=== PATIENT | female | born 1970 | race Caucasian/White ===

== ENCOUNTER 2017-02-24 19:58 | Inpatient (IN) | payer OTHER ==
[2017-02-24] MEDS ORDERED: Heparin 10,000 UNITS/1 ML VIAL ONE (20:20)
[2017-02-24 20:24] LABS: #Eosinphils 0.1 thou/uL (0.0-0.7); #Lymphocytes 1.2 thou/uL (1.20-3.40); #Monocytes 0.9 thou/uL (0.11-0.59); #Neutrophils 10.9 thou/uL (1.40-6.50); %Basophils 0.2 % (0.0-1.0); %Eosinophils 0.4 % (0.0-10.0); %Lymphocytes 9.3 % (21.0-51.0); %Monocytes 7.1 % (0.0-10.0); Hematocrit 36.6 % (36.0-47.0); Mean Platelet Volume 7.6 fL (7.4-10.4); White Blood Cell (WBC) Count 13.2 thou/uL (4.8-10.8)
[2017-02-24 20:34] LABS: Prothrombin Time 15.2 SEC (12.0-14.7)
[2017-02-24 20:35] LABS: PTT 29.8 SEC (22.9-36.1)
[2017-02-24 20:39] LABS: ALT (SGPT) 547 U/L (8-55); AST (SGOT) 690 U/L (5-34); Alkaline Phosphatase 151 U/L (40-150); Anion Gap 20 mmol/L (10-20); BUN (Urea Nitrogen) 14 mg/dL (7.0-18.7); Bilirubin, Total 1.1 mg/dL (0.2-1.2); CK (CPK) 3713 U/L (29-168); Calc. Creatinine Clearance 0 mL/min (70-130); Calcium 8.9 mg/dL (7.8-10.44); Carbon Dioxide 20 mmol/L (22-29); Chloride 101 mmol/L (98-107); Estimated GFR-MDRD 29; Globulin 3.3 g/dL (2.4-3.5); Lipase 30 U/L (8-78); Protein, Total 7.4 g/dL (6.0-8.3)
[2017-02-24 20:50] LABS: Troponin I 6.484 ng/mL (< 0.028)
[2017-02-24 21:43] LABS: Acetaminophen Less than 6.0 mcg/mL (10.0-30.0)
[2017-02-24 21:51] LABS: Amphetamine Not Detected (NotDetected); Methadone Not Detected (NotDetected); Methamphetamine Not Detected (NotDetected)
--- NOTE | 2017-02-24 22:17 | RAD ---
FRONTAL VIEW CHEST: 02/24/17 COMPARISON: 08/16/16 CLINICAL HISTORY: Chest pain. FINDINGS: Redemonstration of sternotomy wires overlying the chest with a single lead left subclavian approach AICD. Cardiac silhouette and pulmonary vasculature are prominent with evidence of interstitial and a lveolar edema bilaterally. IMPRESSION: CHF. POS: MATEO
[2017-02-24] MEDS ORDERED: Naloxone HCl 2 MG, Admixture Fee 1 EACH in Sodium Chloride 0.9% 500 ML IV SCH (23:00)
[2017-02-24] MEDS ORDERED: Ondansetron HCl/PF 4 MG/2 ML Vial IVP PRN ×2 (23:15→23:17)
[2017-02-24] MEDS ORDERED: Ondansetron ODT 4 MG TAB SL PRN (23:15)
[2017-02-24] MEDS ORDERED: Enoxaparin Sodium 80 MG/0.8 ML SYRINGE SC SCH (23:30)
[2017-02-24 23:35] VITALS: BMI 26.2
[2017-02-24 23:51] LABS: Prothrombin Time 15.2 SEC (12.0-14.7)
[2017-02-25 00:50] LABS: Troponin I 8.498 ng/mL (< 0.028)
[2017-02-25 03:27] LABS: #Eosinphils 0.1 thou/uL (0.0-0.7); #Lymphocytes 1.9 thou/uL (1.20-3.40); #Monocytes 0.8 thou/uL (0.11-0.59); #Neutrophils 6.3 thou/uL (1.40-6.50); %Basophils 0.3 % (0.0-1.0); %Lymphocytes 21.2 % (21.0-51.0); %Monocytes 8.3 % (0.0-10.0); Hematocrit 33.3 % (36.0-47.0); Mean Platelet Volume 7.5 fL (7.4-10.4); Red Blood Cell (RBC) Count 3.35 mill/uL (4.20-5.40); White Blood Cell (WBC) Count 9.1 thou/uL (4.8-10.8)
[2017-02-25 03:42] LABS: Anion Gap 12 mmol/L (10-20); BUN (Urea Nitrogen) 13 mg/dL (7.0-18.7); Calc. Creatinine Clearance 66 mL/min (70-130); Calcium 8.1 mg/dL (7.8-10.44); Carbon Dioxide 23 mmol/L (22-29); Chloride 107 mmol/L (98-107); Cholesterol 126 mg/dl (< 200 Desired); Estimated GFR-MDRD 45; LDL Cholesterol, Calculated 87 mg/dL
[2017-02-25 03:50] LABS: Troponin I 9.092 ng/mL (< 0.028)
--- NOTE | 2017-02-25 04:58 | HP ---
PRIMARY CARE PHYSICIAN: Dr. Lozano in [place]. CHIEF COMPLAINT: Altered mental status. HISTORY OF PRESENT ILLNESS: The history of present illness is taken from the patient here in the em ergency room. Ms. Meek is a 46-year-old female that has a history of coronary artery disease as w ell as hypertension and hyperlipidemia. She also has a history of polysubstance abuse as well as bi polar disorder. The patient admits to putting on 100 microgram fentanyl patch as well as trying to chew another fentanyl patch. When asked why she did this, she said that she was having pain in her back and her hips. It appears as if these were obtained illicitly as she does not have a prescripti on for these medications. She said she did this around 3:00 p.m. and she says that later on her fat her brought her to the hospital because she was \\\\"acting stupid\\\\". When asked what she means by t his, she was lethargic and acting altered. She was taken to the emergency room in [place] gur[place] e she was hypotensive and altered. She was given Narcan and improved; however, in the process of he r evaluation her troponin was found to be 6 and she had elevated creatinine as well as liver functio n test and she was transferred to our facility for further evaluation and treatment. When asked if she is having any chest pain, she denies this. She denies feeling short of breath. She denies any nausea, no vomiting. She denies feeling dizzy or lightheaded. In fact, she says she feels much bet ter. She is sitting up in the bed. She looks completely nontoxic and very much awake and alert. W hen asked if she took any Tylenol or any Tylenol products she denies this as well. I listed every p otential thing that I am aware that has Tylenol in it and she denies this. She did say she had some sinus medicines, and some aspirin, but no acetaminophen. She denies taking any Lortab, Percocet, V icodin, etc., and says if she in fact had any of those she would not have to have taken the Fentanyl . REVIEW OF SYSTEMS: CONSTITUTIONAL: There have been no fevers, chills, no night sweats, no weight loss. HEENT: She has had a headache and some sinus congestion, but no sore throat, no rhinorrhea, neck pa in, no adenopathy. PULMONARY: No hemoptysis, no cough, no wheezing. CARDIOVASCULAR: She denies any chest pain, no shortness of breath, no PND, no orthopnea. GASTROINTESTINAL: She denies any abdominal pain, no nausea, no vomiting, no change in bowels. GENITOURINARY: No urinary frequency, hematuria, no hesitancy. NEUROLOGIC: No focal weakness, numbness, no seizures. PSYCHIATRIC: No symptoms of anxiety or depression. SKIN AND INTEGUMENT: No skin changes. No rash. PAST MEDICAL HISTORY: Significant for coronary artery disease, status post stent, hypertension, hyp erlipidemia, hypothyroidism, hepatitis C, chronic systolic heart failure with an ejection fraction o f 25-30% on her last echo in July of 2016. Anxiety disorder, bipolar disorder and polysubstance ab use. PAST SURGICAL HISTORY: She has had a coronary artery bypass grafting, cholecystectomy, cardiac sten ts placed and AICD, hysterectomy, and tonsillectomy. ALLERGIES: CODEINE, which causes itching. FAMILY HISTORY: Significant for cirrhosis and heart disease in her father. Her mother had heart di sease and COPD. SOCIAL HISTORY: She continues to smoke about a pack a day since age 14, so therefore about 32 years . She has a history of cannabis use. She denies any illicit drug use. She denies any alcohol use. She is , has 2 children. She would like to be a full code. Her father has the medical [facility] er of elevators inspector and his name is Martin Horvath. MEDICATIONS: Aspirin 81 mg daily, Lasix 40 mg twice a day, levothyroxine 100 mcg daily, Plavix 75 m g daily, omeprazole 20 mg daily, atorvastatin 20 mg a day, paroxetine 40 mg daily, carvedilol 3.125 mg once a day and albuterol inhaler as well as fish oil and vitamin D. PHYSICAL EXAMINATION: GENERAL: She is alert and oriented. She appears to be in no acute distress. VITAL SIGNS: Her blood pressure is ranging from about 100 systolic down to 82 systolic, heart rate is 80, respiratory rate of 14. She is afebrile. HEENT: Her pupils are equal, round, and reactive. Extraocular muscles are intact. Sclerae are ani cteric. Throat; there is no erythema, no exudates. NECK: No adenopathy, no bruits. LUNGS: Clear. There is no wheezing, no rales. CARDIOVASCULAR: She has a normal S1, S2. I did not appreciate an S3 or S4. No murmurs, clicks or rubs. ABDOMEN: Soft, nontender, nondistended. Positive for bowel sounds. No rebound, no guarding. EXTREMITIES: There is no edema. NEUROLOGICALLY: The exam is nonfocal. SIGNIFICANT LABS: Sodium is 137, potassium 3.5, chloride is 101, CO2 is 20, BUN of 14, creatinine 1 .86, glucose is 113, AST is 690, ALT is 547. CK was 3713, troponin 6.484. White blood cell count 1 3.2, hemoglobin 12.6, hematocrit is 36.6, platelet count is 162. On her EKG, it was sinus rhythm. There appeared to be some ST segment elevation in II and AVF. She had T-wave inversions in V3 and V4. ASSESSMENT AND PLAN: 1. This is a 46-year-old female that presents to the emergency room after she intentionally took fe ntanyl and overdosed on it in an attempt to alleviate pain, not in a suicidal attempt. As a result, she developed hypotension and altered mental status, possibly even precipitated a ST elevation myoc ardial infarction. It is also noted that she has an elevated creatinine above baseline as well as e levation in her liver function test. Currently, the patient is on a naloxone drip and is being admi tted to the ICU. Cardiology has been notified from the ER and the ER physician says he spoke with John Lam regarding the patient's case. We will place her in the ICU, continue the naloxone drip. She will need to be placed on aspirin and consider a beta mirella if the patient's drug screen is negative for cocaine. She will need to have some form of anticoagulation. We will start with Loven ox which will need to be renally dosed initially. The elevation in her liver function tests, it is unclear whether or not this could be related to passive congestion as the patient has a history of severely depressed ejection fraction. Other concerns would be whether she had taken some acetaminop hen product along with the fentanyl which she adamantly denies. She may be out of the window for th e antidote as it appears as if this was taken over 7-8 hours ago; however, I have asked the ER physi tamra to add a Tylenol level to her lab work. We may also need to consult Gastroenterology to obtain their opinion with regards to the elevation in her liver function test. 2. Acute renal failure. I suspect this is likely related to the hypotension from the fentanyl over dose.
--- NOTE | 2017-02-25 05:55 | CON ---
DATE OF CONSULTATION: 02/24/2017 HISTORY OF PRESENT ILLNESS: Cynthia Meek is a 46-year-old white female with history of CABG x4 in 2013 in [place]. She also had a dual chamber ICD placement , she thinks a [employer] device. She is uncertain of when the ICD was placed in regard to her CABG. She was seen by Dr. Prather in 07/2016 for shortness of breath and diaphoresis. She underwent Cardiolite test, which revealed a large fixed defect of the anteroseptal-lateral chavarria, but no reversibility. She has chronic back pain and apparently got a hold of 2 fentanyl 100 mg patches and put it on. She apparently was found on the floor of her house, was unresponsive and taken to the [place] [facility] yesterday, 02/23/17. The patch removed and apparently she was later discharged. She does state that 3 days ago, she had some right-sided chest discomfort, which started as very sharp in nature and lasted approximately 20 minutes, but denies any other chest discomfort over the last 3 to 4 days. She again today was taken back to the [place] [facility]. She states she had a 50-fentanyl patch and apparently was chewing on that and was found very lethargic. She was found to have abnormal cardiac enzymes and was transferred for further evaluation. She denied any chest discomfort except the episode of 3 days ago. PAST MEDICAL HISTORY: Hypertension, hypercholesterolemia, chronic hepatitis C, ischemic cardiomyopathy, hypothyroidism, anxiety, depression, history of polysubstance abuse, coronary artery disease. PAST SURGICAL HISTORY: CABG, AICD placement, history of PTCA and stenting, hysterectomy. MEDICATIONS: Aspirin 81 daily, atorvastatin 20 mg daily, Tessalon 100 mg t.i.d. , carvedilol 3.125 b.i.d., Plavix 75 daily, Feosol 325 daily, Lasix 40 daily, gabapentin 800 mg b.i.d., levothyroxine 100 mcg daily, losartan 25 daily, nitroglycerin 0.4 p.r.n., Prilosec 20 daily, Paxil 60 mg daily, Risperdal 1 mg daily, Aldactone 25 mg q.a.m. ALLERGIES: CODEINE. SOCIAL HISTORY: She continues to smoke one pack per day. She does not drink. REVIEW OF SYSTEMS: Twelve point review of systems is unremarkable. PHYSICAL EXAMINATION: VITAL SIGNS: Blood pressure 128/70, pulse of 80. HEENT: PERRL. NECK: Supple. CHEST: Clear. CARDIAC: S1 and S2 are normal, without any S3, S4. There is a 1/6 systolic murmur at the apex. ABDOMEN: Normal bowel sounds without tenderness, organomegaly. EXTREMITIES: Revealed no clubbing, cyanosis, or edema. NEUROLOGIC: Grossly intact. SKIN: Warm and dry. LABORATORY AND IMAGING DATA: EKG reveals poor R-wave progression in V1 to V3 which is an old finding comparison in 10/2016. She does have more T-wave inversion in V3 and V4 that she has had on previous EKG. White count 13,200, hemoglobin 12.6, hematocrit 36.6, platelets 162,000. INR 1.2. Sodium 139, potassium 3.8, chloride 100, carbon dioxide 17, BUN 14, creatinine 2.24 (in , creatinine was 1.09 and in 08/2016, creatinine was 0.82). AST 333, ALT 251. Alkaline phosphatase 151, CK 3627, CK-MB 55.1, troponin I is 5.986. IMPRESSION: 1. Probable non-ST elevation myocardial infarction with elevated troponin I and CK-MB, although she certainly has had some evidence of rhabdomyolysis. Historically, this certainly may have occurred 3 days ago. I do not feel that this represents an acute STEMI in comparison with her previous EKG. 2. Status post coronary artery bypass graft x4. 3. Status post dual chamber ICD placement. 4. Ischemic cardiomyopathy. 5. Hypertension. 6. Hyperlipidemia. 7. Hypothyroidism. 8. Chronic hepatitis C. 9. Anxiety and depression. 10. Elevated liver function test, questionable hepatic congestion. 11. Polysubstance abuse with chewing fentanyl patches. 12. Probable rhabdomyolysis. PLAN: I do not feel this patient needs to go to the laboratory immunologist acutely. Her acute kidney injury and elevated liver function tests need to be addressed and consideration can probably be given to a catheterization prior to discharge. OLE
[2017-02-25] MEDS ORDERED: Famotidine/PF 20 mg/2ml Vial SLOW IVP SCH ×2 (09:00→21:00)
[2017-02-25] MEDS: Aspirin 325 MG TAB PO SCH (09:43)
--- NOTE | 2017-02-25 12:20 | PDOC.PN ---
- Subjective Encounter Start Date: 02/25/17 Encounter Start Time: 08:30 -: old records requested/rev Pt seen adn exmained, chart reviewed in its entirety. Case discussed face to face with Dr Raza Magana with Pulm/Critical Care. Pt admitted overnight, for AMS, hypotension, multiorgan dysfunction due ot unintentional fentanyl overdose. PT having increased pain and has been chewing on her fentanyl patched. She came in with RODNEY, acute hepatitis, hypotension, bradycardia and NSTEMI Cardiology consulted, did not feel it was a STEMI. Pulm/CC consulted and is following. This morning, she is awake and alert, no distress. She appreas to be oriented X 3. Pt has been updated to condition and plan. BP low, but MAP ok and SBP improving. HR in upper 50s. 10 point ROS performed and neg for all systems except as per HPI - Objective Resuscitation Status: Resuscitation Status FULL:Full Resuscitation MAR Reviewed: Yes Vital Signs & Weight: Vital Signs (12 hours) Temp Pulse Resp Pulse Ox 02/25/17 08:00 97.8 F 58 L 16 100 02/25/17 07:00 97.8 F 02/25/17 04:00 98.4 F Weight Weight 174 lb 2.643 oz Most Recent Monitor Data Heart Rate from ECG 61 NIBP 99/61 NIBP BP-Mean 70 Respiration from ECG 13 SpO2 100 I&O: 02/24/17 02/25/17 02/26/17 06:59 06:59 06:59 Intake Total 1060 70 Output Total 2000 500 Balance -940 -430 Result Diagrams: 02/25/17 03:11 02/25/17 03:10 Radiology Reviewed by me: Yes EKG Reviewed by me: Yes Phys Exam - Physical Examination Constitutional: NAD dissheveled looking HEENT: PERRLA, moist MMs, sclera anicteric, oral pharynx no lesions Neck: no nodes, no JVD, supple, full ROM Respiratory: no wheezing, no rales, no rhonchi, clear to auscultation bilateral Cardiovascular: no significant murmur, no rub, gallop regular, bradycardic Gastrointestinal: soft, non-tender, no distention, positive bowel sounds Musculoskeletal: no edema, pulses present Neurological: non-focal, normal sensation, moves all 4 limbs Lymphatic: no nodes Psychiatric: normal affect, A&O x 3 Skin: no rash, normal turgor, cap refill <2 seconds Dx/Plan (1) Accidental fentanyl overdose Code(s): T40.4X1A - POISONING BY OTH SYNTHETIC NARCOTICS, ACCIDENTAL, INIT Status: Acute (2) Hypotension due to drugs Status: Acute (3) RODNEY (acute kidney injury) Code(s): N17.9 - ACUTE KIDNEY FAILURE, UNSPECIFIED Status: Acute (4) Ischemic hepatitis Code(s): K75.9 - INFLAMMATORY LIVER DISEASE, UNSPECIFIED Status: Acute (5) Bradycardia Code(s): R00.1 - BRADYCARDIA, UNSPECIFIED Status: Acute (6) History of coronary artery disease Code(s): Z86.79 - PERSONAL HISTORY OF OTHER DISEASES OF THE CIRCULATORY SYSTEM Status: Acute (7) Chronic systolic CHF (congestive heart failure) Code(s): I50.22 - CHRONIC SYSTOLIC (CONGESTIVE) HEART FAILURE Status: Acute (8) NSTEMI (non-ST elevated myocardial infarction) Code(s): I21.4 - NON-ST ELEVATION (NSTEMI) MYOCARDIAL INFARCTION Status: Acute - Plan cont current plan of care, PT/OT, respiratory therapy * . Pt had unintentional fentanyl overdose. counseled for need to cessate and get off of the narcotics. Has persistent hypotension due to the fentanyl with resultant hepatic, renal and myocardial injury. BP and HR low due to retaining of BBlocker with RODNEY, slowly resolving. Will watch in CCU for now, possibly to IMCU later today. CCM at present, appreciate cardiology and Pulm input.
[2017-02-25] MEDS ORDERED: Nitroglycerin 0.4 MG TAB (25 Tab Bottle) SL PRN (13:14)
[2017-02-25] MEDS ORDERED: Sodium Chloride 0.9% 200 ML IV SCH (13:15)
--- NOTE | 2017-02-25 13:24 | CON ---
DATE OF SERVICE: 02/25/2017 SERVICE: Pulmonary Medicine. HISTORY OF PRESENT ILLNESS: The patient is a 46-year-old white female with past medical history significant for chronic opiate abuse. She typically doubles with pills. She buys them on the street. She usually uses 10/325 of [place] roughly 3-4 tablets on a daily basis. She met somebody who gave her an idea that she should try a fentanyl patch. This is also obtained on the street. She used it and became completely unresponsive. She was brought to the emergency department. She was given a couple doses of Narcan and she perked up, but ultimately, went back to sleep. Narcan drip was initiated. Overnight, she was weaned off Narcan drip and currently, she is back into her usual state of health. She denies any current nausea, vomiting, diarrhea, shortness of breath or chest discomfort. She indicates she has returned to her usual state of health. She does not have any cough or sputum production. She is quite upset at the person who gave her the fentanyl and she is affirm that she is going to discontinue this habit altogether. PAST MEDICAL HISTORY: 1. Coronary artery disease. 2. Hypertension. 3. Dyslipidemia. 4. Hypothyroidism. 5. Hepatitis C, chronic. 6. Chronic systolic heart failure. 7. Bipolar disorder. 8. Anxiety disorder. 9. Polysubstance drug abuse. PAST SURGICAL HISTORY: 1. Coronary artery bypass graft. 2. Cholecystectomy. 3. History of percutaneous coronary intervention. 4. AICD placement. 5. Hysterectomy. 6. Tonsillectomy. ALLERGIES: CODEINE causes itching. MEDICATIONS: List of her inpatient medications was reviewed. One small update was made. FAMILY HISTORY: Noncontributory. SOCIAL HISTORY: She is a daily smoker and has a roughly [id number] history of smoking. She is currently using a half pack of cigarettes on a daily basis. She uses multiple illicit drugs including opiates. She currently denies IV drugs. She denies significant alcohol use. She has no exposure to chemicals, dust, asbestosis or tuberculosis. REVIEW OF SYSTEMS: General, head, ears, eyes, nose, throat, cardiovascular, respiratory, GI, , musculoskeletal, neurologic and skin is negative except as mentioned in the HPI. PHYSICAL EXAMINATION: VITAL SIGNS: Afebrile, pulse 61, blood pressure 99/61, respirations 13, and saturation 100% on room air. HEENT: Normocephalic, atraumatic. Sclerae are white, conjunctivae pink. Oral and nasal mucosa is moist without lesions. LUNGS: Excellent air entry. There are some rhonchi present, but they cleared with cough. No crackles are appreciated. No wheezing or prolonged expiratory phase. HEART: Normal rate and regular. ABDOMEN: Soft, nontender, nondistended, bowel sounds positive. MUSCULOSKELETAL: No cyanosis or clubbing. There is no pitting in the bilateral lower extremities. GENITOURINARY: No Luke. NEUROLOGIC: Grossly nonfocal. LABORATORY DATA: WBC 9.1 and down trending, hemoglobin of 11.4, platelets 146, 000. INR 1.2. Creatinine down trending to 1.27. Basic metabolic profile is otherwise unremarkable except for potassium of 3.1. AST and ALT were previously 690 and 547. CK 3,700. Troponin is up trending to 9.09. Lipase 30. Liver function studies are otherwise unremarkable. Acetaminophen level is negative. Urine drug screen is interestingly negative. Hepatitis C antibody is positive. Hepatitis B is unremarkable. IMAGING: Chest x-ray demonstrates findings consistent with minimal volume overload. She has interstitial alveolar pattern of edema present. Prominent vasculature is present. ASSESSMENT: 1. Metabolic encephalopathy secondary to opioid use. 2. Drug overdose with fentanyl. 3. Non-ST elevation myocardial infarction. 4. Shock liver. 5. Chronic hepatitis C. 6. Chronic systolic heart failure. PLAN: The patient is currently returning to her usual state of health. I am hopeful that her multiple organ injuries will start to improve. We will repeat liver function studies as well as CK tomorrow. She will need to be observed on telemetry for at least an additional 24-48 hours. Cardiology has recommended medical management for the time being, but will likely need to cath the patient prior to dismissal from the hospital. Pulmonary or Critical Care will continue to follow while she remains in this location. OLE
[2017-02-25] MEDS: Potassium Chloride 20 MEQ TAB PO SCH ×2 (15:39→18:09)
[2017-02-25] MEDS ORDERED: Iopamidol 370 76% 100 ML VIAL ONE (16:46)
[2017-02-25] MEDS: Atorvastatin Calcium 20 MG TAB PO SCH (20:04)
[2017-02-25] MEDS: Gabapentin 300 MG CAP PO SCH (20:05)
[2017-02-26 05:06] LABS: #Eosinphils 0.2 thou/uL (0.0-0.7); #Lymphocytes 1.4 thou/uL (1.20-3.40); #Monocytes 0.7 thou/uL (0.11-0.59); #Neutrophils 4.7 thou/uL (1.40-6.50); %Basophils 0.5 % (0.0-1.0); %Eosinophils 2.5 % (0.0-10.0); %Lymphocytes 19.6 % (21.0-51.0); %Monocytes 9.7 % (0.0-10.0); Hematocrit 36.6 % (36.0-47.0); Red Blood Cell (RBC) Count 3.66 mill/uL (4.20-5.40)
[2017-02-26 05:26] LABS: ALT (SGPT) 612 U/L (8-55); AST (SGOT) 596 U/L (5-34); Alkaline Phosphatase 141 U/L (40-150); Anion Gap 10 mmol/L (10-20); BUN (Urea Nitrogen) 10 mg/dL (7.0-18.7); Bilirubin, Total 0.7 mg/dL (0.2-1.2); Calc. Creatinine Clearance 99 mL/min (70-130); Calcium 9.2 mg/dL (7.8-10.44); Carbon Dioxide 29 mmol/L (22-29); Chloride 101 mmol/L (98-107); Estimated GFR-MDRD 69; Globulin 3.1 g/dL (2.4-3.5); Protein, Total 7.1 g/dL (6.0-8.3)
--- NOTE | 2017-02-26 05:47 | CON ---
DATE OF CONSULTATION: 02/25/2017 REFERRING PHYSICIAN: David Hwang M.D. REASON FOR CONSULTATION: Abnormal LFTs. HISTORY OF PRESENT ILLNESS: Ms. Cynthia Meek is a 46-year-old female transferred from the [place] ER because of hypotension, abnormal troponin level, and CPK enzymes, etc. She was also found to have abnormal LFTs. The patient apparently has some chronic pain syndrome and he tore up the fentanyl patch and he ate it. The patient came to the [place] ER because of altered mental status. The patient was found to have hypotension. Also, her serum CPK enzymes were very high and troponin level was high. There is no history of any chest pain or any dyspnea. However, when she came in yesterday, she was somewhat sleepy. Today, she is awake, alert, and communicative. The patient denies any abdominal pain, nausea, or vomiting. The patient tells me she had a liver biopsy more than 10 years ago in [place] and was told liver cirrhosis. She also had been told hepatitis C. She never got treatment for her chronic hepatitis C. The patient does drink alcohol very heavily. She says she has quit drinking completely more than 10 years ago. She does drink once in a while. On , did take 2 small glasses of wine. Otherwise , she has had no recent alcohol abuse. The patient has a history of chronic pain syndrome and has been on some pain medication for a while. At the present time, she is awake, alert, and communicative. She is still slightly hypotensive. On arrival in the ER yesterday, her BP was around 85/47, today is around 90/60. She had good urinary out put.. She had a serum acetone level drawn, which was actually normal. There is no other relevant history. MEDICAL ILLNESSES: 1. History of liver cirrhosis. 2. Chronic hepatitis C. 3. Coronary artery disease, status post coronary artery bypass graft in the past. 4. Status post cardiac stent placement. 5. Cholecystectomy. 6. Hysterectomy. 7. Status post AICD placement done. 8. History of chronic pain syndrome. 9. Depression and anxiety. ALLERGIES: CODEINE. SOCIAL HISTORY: The patient is a former drinker. She quit drinking completely more than 10 years ago. She quit smoking. She has a history of cannabis use off and on. MEDICATIONS: Include: 1. Aspirin. 2. Lasix. 3. Levothyroxine. 4. Plavix. 5. Omeprazole. 6. Atorvastatin. 7. Paroxetine. 8. Carvedilol. 9. Albuterol inhalers. 10. She is also on vitamin D and fish oil. FAMILY HISTORY: Father, liver cirrhosis and also uncle with liver cirrhosis. Father also had heart disease. Mother, heart disease and COPD. REVIEW OF SYSTEMS: System review at the present time: Constitutional: No history of fever, no weight loss, no loss of appetite or fatigue, etc. Respiratory System: No history of chronic cough, hemoptysis, dyspnea. Cardiovascular System: No chest pain at the present time. No dyspnea, no palpitation, orthopnea, or PND. Gastrointestinal: No abdominal pain, no nausea , vomiting, no hematochezia or melena. Genitourinary: No dysuria, hematuria, or frequency of urination. Musculoskeletal: Some chronic back pain and myalgias. Hematologic: Nonrelevant. Neuropsychiatric: History of anxiety and depression. PHYSICAL EXAMINATION: GENERAL: The patient appears comfortable. She is awake, alert, and communicative. VITAL SIGNS: Pulse is 80, blood pressure is about 90/65. HEENT: Conjunctivae clear. NECK: Supple. No adenitis or thyromegaly noted. CARDIOVASCULAR SYSTEM: First and second heart sounds are normal. LUNGS: Clear to auscultation. ABDOMEN: Soft to palpate. Abdomen is nontender. There is no organomegaly or masses. Bowel sounds normal. EXTREMITIES: Reveal no edema. LABORATORY DATA: On admission, sodium 137, potassium 3.5, chloride 101, bicarb 20, BUN is 14, creatinine 1.86, glucose 113, AST 690, ALT 547. CPK 3713. Troponin 6.484. WBC 13,200, hemoglobin 12.6, hematocrit 36.6, platelet count 160,000. EKG shows elevation of ST segment in lead II and aVF and also in V3 and V4. CLINICAL IMPRESSION: 1. A 46-year-old female with a history of liver cirrhosis, chronic hepatitis C. The patient has never been treated. Apparently, she was hypotensive transferring in the ER. It is possible that she could have shock liver from the hypotension. It is also possible that she could have worsening of chronic hepatitis C. 2. Coronary artery disease, status post coronary artery bypass graft and stent placement. 3. Chronic pain syndrome. 4. Markedly elevated troponin level and CPK total and MB fraction. 5. Acute kidney injury. RECOMMENDATIONS: 1. We will follow up liver function tests. 2. Abdominal sonogram. 3. We will plan for outpatient treatment for her chronic hepatitis C. OLE
[2017-02-26] MEDS ORDERED: Clopidogrel Bisulfate 300 MG TAB PO SCH (08:45)
--- NOTE | 2017-02-26 09:10 | CON ---
DATE OF CONSULTATION: 02/26/2017 DATE OF ADMISSION: 02/24/2017 HISTORY OF PRESENT ILLNESS: Ms. Meek is an unfortunate 46-year-old woman, who in 2013 underwent c oronary artery bypass grafting x4 in [place]. Grafts were a saphenous vein graft to PDA, saphenous v ein graft to OM, and sequential left internal mammary artery to diagonal and LAD. She has had 2 [facility] admissions for fentanyl overdose in the last week. This last admission, she also had ST-eleva tion myocardial infarction. Her troponin peaked at 9.09 and CK-MB at 68. She underwent cardiac cat heterization yesterday afternoon, which revealed a patent saphenous vein graft to PDA. Her OM vein graft is occluded with no target. The left internal mammary artery feeds the diagonal and LAD -- tesfaye th of these arteries feed some small septal branches and there is no real runoff or further bypassab le target. I have been asked to see her for consideration of redo coronary artery bypass grafting. She is currently resting in the ICU without complaint, sitting up in bed. PAST MEDICAL HISTORY: 1. Multi-substance abuse. 2. Coronary artery disease. 3. Hypertension. 4. Dyslipidemia. 5. Hypothyroidism. 6. Hepatitis C. 7. Chronic systolic heart failure. 8. Bipolar disorder. 9. Anxiety. PAST SURGICAL HISTORY: 1. Coronary artery bypass grafting x4 in 2013 in [place]. 2. Cholecystectomy. 3. AICD. 4. Hysterectomy. 5. Tonsillectomy. ALLERGIES: CODEINE. CURRENT MEDICATIONS: Noted. SOCIAL HISTORY: She continues to smoke cigarettes daily. She continues to use multiple substances at home including fentanyl, marijuana, and opiates. REVIEW OF SYSTEMS: Not performed. PHYSICAL EXAMINATION: GENERAL: This is a well-developed, well-nourished, moderately obese woman resting comfortably in be d. VITAL SIGNS: Her temperature is 98.8, pulse is 63 and regular, blood pressure is 107/70. NECK: Supple, without bruit. CHEST: Clear bilaterally. HEART: Rhythm is regular. ABDOMEN: Soft and nontender. EXTREMITIES: No edema. ASSESSMENT AND PLAN: This is an unfortunate 46-year-old woman, who really has no indication for red o coronary artery bypass grafting, as she has no targets and has continued to abuse multiple substan rafael.
[2017-02-26] MEDS ORDERED: Carvedilol 3.125 MG TAB PO SCH (09:30)
[2017-02-26] MEDS ORDERED: Levothyroxine Sodium 125 MCG TAB PO SCH (09:30)
[2017-02-26] MEDS: Gabapentin 300 MG CAP PO SCH ×2 (09:40→20:15)
[2017-02-26] MEDS: Aspirin 325 MG TAB PO SCH (09:40)
[2017-02-26] MEDS: Losartan 25 MG TAB PO SCH (09:41)
[2017-02-26] MEDS: PARoxetine 20 MG TAB PO SCH (09:42)
[2017-02-26] MEDS: Levothyroxine Sodium 125 MCG TAB PO SCH (09:43)
--- NOTE | 2017-02-26 16:03 | PRG ---
DATE OF SERVICE: 02/26/2017 SERVICE: Pulmonary Medicine. INTERVAL HISTORY: The patient is doing great from a respiratory standpoint. She denies any chest p ain, shortness of breath, nausea or vomiting. She is starting to get a little antsy. She suggests that this happens whenever she goes a couple of days without narcotics. Otherwise, she is in her [facility] state of health. PHYSICAL EXAMINATION: VITAL SIGNS: Afebrile, pulse 55, blood pressure 92/59, respirations 13, saturation 99% on room air. GENERAL: The patient is awake and alert, in no apparent distress. LUNGS: Excellent air entry. I do not appreciate prolonged expiratory phase, wheezing, rhonchi or c rackles. HEART: Normal rate and regular. ABDOMEN: Soft, nontender, nondistended. Bowel sounds positive. MUSCULOSKELETAL: No cyanosis or clubbing. No pitting in the bilateral lower extremities. NEUROLOGIC: Grossly nonfocal. LABORATORY DATA: WBC 7.0, hemoglobin 12.0, platelets 174,000. Basic metabolic profile is unremarka ble. Liver function studies are actually improving. Troponin is gently up trending to 9.1. CK is down trending to 2100. TSH is slightly elevated at 9.7. ASSESSMENT: 1. Acute hypoxic respiratory failure, resolved. 2. Metabolic encephalopathy secondary to opiate abuse. 3. Overdose with fentanyl patches, chewed. 4. Non-ST elevation myocardial infarction. 5. Chronic hepatitis C. 6. Shock liver, improving. 7. Chronic systolic heart failure. PLAN: I will provide her with [place] 5/325 one tab p.o. b.i.d. This will not be on a p.r.n. basis. This is basically just to barely prevent her from withdrawing from narcotic pain medication. At th is point, she is stable for transition out of the ICU to the floor. I will continue to follow up fo r the time being. Beta mirella has been initiated for nonsustained V-tach which I agree with.
--- NOTE | 2017-02-26 16:18 | PDOC.PN ---
- Subjective Encounter Start Date: 02/26/17 Encounter Start Time: 11:45 Pt seen and examined earlier when on rounds. feeling better, vitals stable. short run on NSVT earlier. watched overnight in ICU, no further events. Pt went to slab stripper yesterday, had major stensoes of grafts and vessels. CT surgery saw and deemed non-operative candidate. Medically being managed. stable for transfer to floor No f/c, no N/V/D/c, no CP or SOB. scheduled low dose norco started by pulm 10 point ROS performed and neg for all systems except as per HPI - Objective Resuscitation Status: Resuscitation Status FULL:Full Resuscitation MAR Reviewed: Yes Vital Signs & Weight: Vital Signs (12 hours) Temp Pulse Resp Pulse Ox 02/26/17 16:00 98.5 F 02/26/17 11:45 97.9 F 02/26/17 07:20 98.8 F 65 15 93 L 02/26/17 07:00 98.8 F Weight Weight 181 lb 14.102 oz Most Recent Monitor Data Heart Rate from ECG 55 NIBP 101/59 NIBP BP-Mean 68 Respiration from ECG 17 SpO2 99 I&O: 02/25/17 02/26/17 02/27/17 06:59 06:59 06:59 Intake Total 1060 2370 1020 Output Total 1999 5071 0417 [facility] -[facility] -280 Result Diagrams: 02/26/17 03:35 02/26/17 03:35 Radiology Reviewed by me: Yes EKG Reviewed by me: Yes Phys Exam - Physical Examination Constitutional: NAD HEENT: PERRLA, moist MMs, sclera anicteric, oral pharynx no lesions Neck: no nodes, no JVD, supple, full ROM Respiratory: no wheezing, no rales, no rhonchi, clear to auscultation bilateral faint bibasilar crackles Cardiovascular: RRR, no significant murmur, no rub Gastrointestinal: soft, non-tender, no distention, positive bowel sounds Musculoskeletal: no edema, pulses present Neurological: non-focal, normal sensation, moves all 4 limbs Lymphatic: no nodes Psychiatric: normal affect, A&O x 3 Skin: no rash, normal turgor, cap refill <2 seconds Dx/Plan (1) Accidental fentanyl overdose Code(s): T40.4X1A - POISONING BY OTH SYNTHETIC NARCOTICS, ACCIDENTAL, INIT Status: Acute Qualifiers: Encounter type: initial encounter Qualified Code(s): T40.4X1A - Poisoning by other synthetic narcotics, accidental (unintentional), initial encounter Comment: resolving. HR and BP stabilized (2) Hypotension due to drugs Status: Acute Comment: improving. CCM (3) RODNEY (acute kidney injury) Code(s): N17.9 - ACUTE KIDNEY FAILURE, UNSPECIFIED Status: Acute (4) Ischemic hepatitis Code(s): K75.9 - INFLAMMATORY LIVER DISEASE, UNSPECIFIED Status: Acute Comment: AST down, ALt up a little. watch (5) Bradycardia Code(s): R00.1 - BRADYCARDIA, UNSPECIFIED Status: Resolved (6) History of coronary artery disease Code(s): Z86.79 - PERSONAL HISTORY OF OTHER DISEASES OF THE CIRCULATORY SYSTEM Status: Acute Comment: see below (7) Chronic systolic CHF (congestive heart failure) Code(s): I50.22 - CHRONIC SYSTOLIC (CONGESTIVE) HEART FAILURE Status: Chronic (8) NSTEMI (non-ST elevated myocardial infarction) Code(s): I21.4 - NON-ST ELEVATION (NSTEMI) MYOCARDIAL INFARCTION Status: Acute Comment: mutlivessel disease, not an opertive candidate due to polysubstance abuse. medically manage - Plan cont current plan of care, PT/OT, respiratory therapy, out of bed/ambulate * .
[2017-02-26] MEDS ORDERED: Ibuprofen 800 MG TAB PO SCH (16:30)
[2017-02-26] MEDS: Carvedilol 3.125 MG TAB PO SCH (17:31)
[2017-02-26] MEDS: Atorvastatin Calcium 20 MG TAB PO SCH (20:15)
[2017-02-26] MEDS: HYDROcodone/Acetaminophen 5/325 mg Tablet PO SCH (20:15)
[2017-02-27] MEDS: Levothyroxine Sodium 125 MCG TAB PO SCH (05:58)
--- NOTE | 2017-02-27 05:58 | PRG ---
DATE OF SERVICE: 02/26/2017 SUBJECTIVE: This is a 46-year-old female admitted to the hospital with altered mental status, hypotension, elevated transaminases, and also positive cardiac enzymes. The patient underwent cardiac catheterization and was found to have occlusion of the bypass graft. She had been seen by Dr. Ronnell Haskins who does not feel she is a surgical candidate. The patient is doing well at the present time. She is tolerating diet. No abdominal pain, no nausea, no vomiting. PHYSICAL EXAMINATION: GENERAL: Awake, alert, and oriented to time, place, and person. VITAL SIGNS: Pulse is 70, blood pressure 110/70. CARDIOVASCULAR SYSTEM: Lungs within normal limits. ABDOMEN: Soft to palpate. No organomegaly. No tenderness. No masses. CLINICAL IMPRESSION: 1. Acute liver injury most likely due to hypotension and chronic hepatitis C. 2. Abnormal cardiac enzymes with an abnormal coronary angiogram. RECOMMENDATIONS: Follow up LFTs. The patient will come back as outpatient for treatment of her chronic hepatitis C. OLE
[2017-02-27 05:59] LABS: #Eosinphils 0.2 thou/uL (0.0-0.7); #Lymphocytes 1.3 thou/uL (1.20-3.40); #Monocytes 0.6 thou/uL (0.11-0.59); #Neutrophils 3.3 thou/uL (1.40-6.50); %Basophils 0.6 % (0.0-1.0); %Eosinophils 3.7 % (0.0-10.0); %Lymphocytes 24.1 % (21.0-51.0); %Monocytes 10.7 % (0.0-10.0); Hematocrit 35.8 % (36.0-47.0); Mean Platelet Volume 7.8 fL (7.4-10.4); Red Blood Cell (RBC) Count 3.53 mill/uL (4.20-5.40); White Blood Cell (WBC) Count 5.4 thou/uL (4.8-10.8)
[2017-02-27 06:23] LABS: ALT (SGPT) 511 U/L (8-55); AST (SGOT) 357 U/L (5-34); Alkaline Phosphatase 119 U/L (40-150); Anion Gap 11 mmol/L (10-20); BUN (Urea Nitrogen) 8 mg/dL (7.0-18.7); Bilirubin, Total 0.5 mg/dL (0.2-1.2); Calc. Creatinine Clearance 131 mL/min (70-130); Calcium 9.4 mg/dL (7.8-10.44); Carbon Dioxide 27 mmol/L (22-29); Chloride 103 mmol/L (98-107); Estimated GFR-MDRD 84; Globulin 3.1 g/dL (2.4-3.5); Protein, Total 6.6 g/dL (6.0-8.3)
[2017-02-27] MEDS: Carvedilol 3.125 MG TAB PO SCH ×2 (08:33→16:17)
[2017-02-27] MEDS: Clopidogrel Bisulfate 75 MG TAB PO SCH (08:34)
[2017-02-27] MEDS: Gabapentin 300 MG CAP PO SCH ×2 (08:34→21:06)
[2017-02-27] MEDS: PARoxetine 20 MG TAB PO SCH (08:34)
[2017-02-27] MEDS: Aspirin 325 MG TAB PO SCH (08:34)
[2017-02-27] MEDS: HYDROcodone/Acetaminophen 5/325 mg Tablet PO SCH ×2 (08:35→21:06)
[2017-02-27] MEDS: Losartan 25 MG TAB PO SCH (08:35)
--- NOTE | 2017-02-27 17:04 | PDOC.PN ---
- Subjective Encounter Start Date: 02/27/17 Encounter Start Time: 11:10 PT seen earlier today on rounds. Breathing better, MS back to baseline, no CP, no SOB, no N/V/D/C, no acute overnight events. Back and hips hurt from lying in bed. No other complaints 10 point ROS performed and neg for all except as stated in the HPI - Objective Resuscitation Status: Resuscitation Status FULL:Full Resuscitation MAR Reviewed: Yes Vital Signs & Weight: Vital Signs (12 hours) Temp Pulse Resp BP Pulse Ox 02/27/17 16:15 98.2 F 65 18 108/69 99 02/27/17 12:12 98.2 F 66 18 117/66 99 02/27/17 08:35 98.1 F 65 18 02/27/17 08:25 98.1 F 65 18 104/64 95 Weight Weight 194 lb 4.8 oz Most Recent Monitor Data Heart Rate from ECG 57 NIBP 124/64 NIBP BP-Mean 83 Respiration from ECG 18 SpO2 98 I&O: 02/26/17 02/27/17 02/28/17 06:59 06:59 06:59 Intake Total 2370 2837 Output Total 3450 3350 [facility] -1080 -513 Result Diagrams: 02/27/17 05:41 02/27/17 05:41 Radiology Reviewed by me: Yes EKG Reviewed by me: Yes Phys Exam - Physical Examination Constitutional: NAD HEENT: PERRLA, moist MMs, sclera anicteric, oral pharynx no lesions Neck: no nodes, no JVD, supple, full ROM Respiratory: no wheezing, no rales, no rhonchi, clear to auscultation bilateral Cardiovascular: RRR, no significant murmur, no rub Gastrointestinal: soft, non-tender, no distention, positive bowel sounds Musculoskeletal: no edema, pulses present Neurological: non-focal, normal sensation, moves all 4 limbs Lymphatic: no nodes Psychiatric: normal affect, A&O x 3 Skin: no rash, normal turgor, cap refill <2 seconds Dx/Plan (1) Accidental fentanyl overdose Code(s): T40.4X1A - POISONING BY OTH SYNTHETIC NARCOTICS, ACCIDENTAL, INIT Status: Acute Qualifiers: Encounter type: initial encounter Qualified Code(s): T40.4X1A - Poisoning by other synthetic narcotics, accidental (unintentional), initial encounter Comment: resolved. HR and BP stabilized (2) Hypotension due to drugs Status: Acute Comment: improved. CCM (3) RODNEY (acute kidney injury) Code(s): N17.9 - ACUTE KIDNEY FAILURE, UNSPECIFIED Status: Resolved Comment : likely dehydration or ATN from presentations. better now (4) Ischemic hepatitis Code(s): K75.9 - INFLAMMATORY LIVER DISEASE, UNSPECIFIED Status: Acute Comment: AST, ALT better. Suspect shocked liver (5) Bradycardia Code(s): R00.1 - BRADYCARDIA, UNSPECIFIED Status: Resolved (6) History of coronary artery disease Code(s): Z86.79 - PERSONAL HISTORY OF OTHER DISEASES OF THE CIRCULATORY SYSTEM Status: Acute Comment: see below (7) Chronic systolic CHF (congestive heart failure) Code(s): I50.22 - CHRONIC SYSTOLIC (CONGESTIVE) HEART FAILURE Status: Chronic (8) NSTEMI (non-ST elevated myocardial infarction) Code(s): I21.4 - NON-ST ELEVATION (NSTEMI) MYOCARDIAL INFARCTION Status: Acute Comment: mutlivessel disease, not an opertive candidate due to polysubstance abuse. medically manage - Plan cont current plan of care, PT/OT, social media project manager * .
--- NOTE | 2017-02-27 19:11 | PRG ---
DATE OF SERVICE: 02/27/2017 SERVICE: Pulmonary Medicine. INTERVAL HISTORY: The patient is doing great from a respiratory standpoint. She denies any current shortness of breath, fevers or chills. She is up walking the hallways without difficulty. Otherwise, she is in her usual state of health and has no specific complaints. PHYSICAL EXAMINATION: VITAL SIGNS: Afebrile, pulse 65, blood pressure 108/69, respirations 18, saturation 99% on room air. GENERAL: The patient is awake and alert, in no apparent distress. LUNGS: Excellent air entry. Slightly prolonged expiratory phase, but I do not appreciate dependent crackles any longer. There is no expiratory wheezing or rhonchi. HEART: Normal rate, regular. ABDOMEN: Soft, nontender, nondistended. Bowel sounds positive. MUSCULOSKELETAL: No cyanosis or clubbing. There is no pitting edema of the bilateral lower extremities. GENITOURINARY: No Luke. NEUROLOGIC: Grossly nonfocal. LABORATORY DATA: WBC 5.4, hemoglobin 11.7, platelets 159,000. Basic metabolic profile is essentially unremarkable. AST and ALT continue to trend downward. ASSESSMENT: 1. Acute hypoxic respiratory failure, resolved. 2. Metabolic encephalopathy secondary to opiate abuse, resolved. 3. Overdose with fentanyl patches, chewed. 4. Non-ST elevation myocardial infarction. 5. Chronic systolic heart failure. 6. Shock liver, improving. 7. Chronic hepatitis C. PLAN: At this point, the patient is currently on room air. She has no respiratory issues. As such, there are no further requirements for inpatient Pulmonary or Critical Care opinion. I will sign off. Please call with additional questions or concerns moving forward. OLE
[2017-02-27] MEDS: Atorvastatin Calcium 20 MG TAB PO SCH (21:06)
[2017-02-28] MEDS: Levothyroxine Sodium 125 MCG TAB PO SCH (07:04)
[2017-02-28] MEDS: Aspirin 325 MG TAB PO SCH (09:06)
[2017-02-28] MEDS: Clopidogrel Bisulfate 75 MG TAB PO SCH (09:06)
[2017-02-28] MEDS: PARoxetine 20 MG TAB PO SCH (09:06)
[2017-02-28] MEDS: Gabapentin 300 MG CAP PO SCH (09:06)
[2017-02-28] MEDS: HYDROcodone/Acetaminophen 5/325 mg Tablet PO SCH (10:09)
[2017-02-28] MEDS: Losartan 25 MG TAB PO SCH (10:09)
[2017-02-28] MEDS: Carvedilol 3.125 MG TAB PO SCH (10:10)
--- NOTE | 2017-02-28 13:24 | DIS ---
DATE OF ADMISSION: 02/24/2017 DATE OF DISCHARGE: 02/28/2017 DISCHARGE DIAGNOSES: 1. Accidental fentanyl overdose. 2. Narcotic abuse. 3. Severe multivessel coronary artery disease. 4. Non-ST elevation myocardial infarction. 5. Ischemic hepatitis. 6. Acute tubular necrosis. 7. Prolonged hypotension. 8. Bradycardia secondary to retained medications from acute tubular necrosis. 9. Chronic obstructive pulmonary disease. 10. Chronic systolic congestive heart failure. 11. Acute kidney injury. CONSULTATIONS: 1. Dr. Harlan Lam with Cardiology. 2. Dr. Raza Magana with Pulmonary. 3. Dr. Bills with GI. 4. Dr. Ronnell Haskins with Cardiothoracic Surgery. PROCEDURE: Percutaneous transluminal coronary angiography, 02/25/2017, by, I believe, Dr. Yanncik warren. HISTORY AND PHYSICAL: Ms. Meek is a 46-year-old female with history of chronic pain, who sees a [facility] physician at [place], Dr. Lozano. The patient was having acute on chronic pain and w as unable to get pain medicines. She decided to purchase some fentanyl patches of the street and ch ewed on them to get the medicine. She was noted later on that day to be acting \\\\"stupid\\\\" by her father and was brought into the emergency department. She was lethargic and altered in mental statu s. Emergency room at [facility] showed her to be hypotensive and bradycardic. She was transferre d here for further evaluation. On arrival, she continued to be hypotensive and bradycardic, she was subsequently admitted to our rvice. HOSPITAL COURSE: The patient was seen and examined and admitted to our service by Dr. David lopez o the ICU. She was kept on the heart monitor and given breathing treatments and oxygen. She was no mack to have acute respiratory acidosis and acute hypoxemic respiratory failure. She is noted to hav e increased creatinine and increased LFTs and prolonged hypotension with systolic around the 80s. Overnight 02/24/2017 to 02/25/2017, she started to improve some. Blood pressure began to rise back towards normal, heart rate started to improve. I took over that day. [facility] case there was any emergent bradycardic rhythm that required transcutaneous pacing. By 02/26/2017, she was much more awake and alert. She had gone through a coronary angiography due t o her increased troponin from her demand infarct and was found to have severe multivessel coronary a rtery disease with major stenoses. Dr. Haskins was consulted and saw her on 02/26/2017, and felt she was not a surgical candidate due to polysubstance abuse. Instead medical management was optimized. By 02/27/2017, she was feeling better and transferred to the floor. Today, 02/28/2017, her pain is under better control. Her blood pressure is normal, heart rate is normal, and her mental status is back to baseline. She is, otherwise, stable for discharge. DISCHARGE PHYSICAL EXAMINATION: The patient was seen and examined on the day of discharge. Discharge plan and disposition were discussed with the patient [id number] at the bedside. DISCHARGE MEDICATIONS: 1. Albuterol sulfate inhaler 2 puffs inhaled q.6 hours p.r.n. 2. Aspirin 81 mg daily. 3. Atorvastatin 20 mg p.o. at bedtime. 4. Tessalon as needed per previous prescription. 5. Coreg to continue 3.125 mg p.o. b.i.d. 6. Plavix 75 mg daily. 7. Losartan 25 mg daily. 8. Levothyroxine 125 mcg daily. 9. Continuing pre-admit potassium and iron. 10. Continuing pre-admit Nexium 40 mg daily. 11. Gabapentin 800 mg p.o. b.i.d. to continue. FOLLOWUP APPOINTMENTS: 1. Primary care physician, Dr. Lozano, within a week. 2. Resume her workup for her chronic pain management doctor. DISCHARGE ACTIVITY: As tolerated, per cardiopulmonary limits. DISCHARGE DIET: Heart healthy. DISCHARGE CONDITION: Stable. DISPOSITION: Being discharged home via private vehicle. INSTRUCTIONS: 1. Refrain from purchasing street drugs and using them. 2. Refrain from obtaining narcotics from alternate sources. 3. Return to the emergency department for chest pain or difficulty breathing or new symptoms.
[2017-02-28 13:30] VITALS: BP 99/63; TEMP 98.2
--- NOTE | 2017-02-28 15:10 | PDOC.CTH ---
Cardiology Progress Note - Subjective The pt was seen and examined. No overnight events. No cardiac complaints. Complains of intermittent cough. - Objective Vital Signs Temp Pulse Resp BP Pulse Ox 02/28/17 12:00 98.2 F 60 16 99/63 98 02/28/17 10:10 102/68 02/28/17 08:30 98.1 F 64 18 99/59 L 95 02/28/17 08:00 98.1 F 64 18 95 02/28/17 04:00 98.3 F 71 20 126/65 96 Weight 194 lb 4.8 oz 02/27/17 02/28/17 03/01/17 06:59 06:59 06:59 Intake Total 2837 430 Output Total 3350 Balance -513 430 - Physical Examination General/Neuro: alert & oriented x3 Neck: no JVD present Lungs: CTA Heart: RRR Abdomen: soft Extremities: other: (No edemas) - Telemetry Telemetry Rhythm: SR - Labs Result Diagrams: 02/27/17 05:41 02/27/17 05:41 Troponin/CKMB CK-MB (CK-2) 68.4 ng/mL (0-6.6) H* 02/24/17 20:18 Troponin I 9.092 ng/mL (< 0.028) H* 02/25/17 03:11 - Assessment/Plan 1. NSTEMI - Cardiac cath on 02/25 revealed mutlivessel disease, but not an opertive candidate due to no targets; Medical treatment only; 2. CAD with Hx of CABG x4 in 2012 - stable with BBlocker, ARB, ASA, Plavix; 3. Chronic Systolic HF - Stable 4. Hx of AICD placement - remain SR 5. HTN - stable with current medication 6. Hyperlipidemia - on Statin med 7. Chronic Hep C - 8. Anxiety - stable 9. Polysubstance abuse - 10. Tobacco abuse - Smoking cessation education given MAR reviewed *Instructed the pt to f/u with Dr Arriaza within 3-4 weeks. Review of Systems - Review of Systems Constitutional: reports: no symptoms reported EENTM: reports: no symptoms reported Respiratory: reports: see HPI Cardiac (ROS): reports: no symptoms reported ABD/GI: reports: no symptoms reported : reports: no symptoms reported Musculoskeletal: reports: no symptoms reported
--- NOTE | 2017-04-18 09:44 | EKG ---
Test Reason : OVERDOSE Blood Pressure : / mmHG Vent. Rate : 069 BPM Atrial Rate : 069 BPM P-R Int : 170 ms QRS Dur : 100 ms QT Int : 528 ms P-R-T Axes : 053 021 111 degrees QTc Int : 565 ms Normal sinus rhythm Possible Left atrial enlargement Septal infarct , age undetermined Inferior injury pattern Prolonged QT * ACUTE HI * Consider right ventricular involvement in acute inferior infarct No STEMI --subacute infarct anterior, no reciprocal changes Abnormal ECG Confirmed by KRISH EDWARDS M.D. ([id number]), video effects editor [employer] [employer] ([id number]) on 04/18/2017 9:43:51 AM Referred By: GRACE Confirmed By:KRISH EDWARDS M.D.
== END 2017-02-28 14:50 | disposition home or self-care (01) | DRG 917 ==
LOC: ERS 19:58 → CCU 23:11 → 2NO 02-26 21:40
PROVIDERS: ADMIT Internal Medicine; ATTEND Internal Medicine
PROC: 4A023N7 Measurement of Cardiac Sampling and Pressure, Left Heart, Percutaneous Approach (ICD-10-PCS; principal; 2017-02-25)
PROC: B2111ZZ Fluoroscopy of Multiple Coronary Arteries using Low Osmolar Contrast (ICD-10-PCS; 2017-02-25)
PROC: B2131ZZ Fluoroscopy of Multiple Coronary Artery Bypass Grafts using Low Osmolar Contrast (ICD-10-PCS; 2017-02-25)
PROC: B2151ZZ Fluoroscopy of Left Heart using Low Osmolar Contrast (ICD-10-PCS; 2017-02-25)
DX: T40.4X1A Poisoning by other synthetic narcotics, accidental (unintentional), initial encounter (principal); J96.01 Acute respiratory failure with hypoxia; I21.4 Non-ST elevation (NSTEMI) myocardial infarction; K72.00 Acute and subacute hepatic failure without coma; N17.0 Acute kidney failure with tubular necrosis; G93.41 Metabolic encephalopathy; I50.22 Chronic systolic (congestive) heart failure; E87.2 Acidosis; M62.82 Rhabdomyolysis; I25.810 Atherosclerosis of coronary artery bypass graft(s) without angina pectoris; I11.0 Hypertensive heart disease with heart failure; F31.9 Bipolar disorder, unspecified; F19.10 Other psychoactive substance abuse, uncomplicated; E03.9 Hypothyroidism, unspecified; Z95.5 Presence of coronary angioplasty implant and graft; B18.2 Chronic viral hepatitis C; F41.9 Anxiety disorder, unspecified; Z95.1 Presence of aortocoronary bypass graft; Z95.810 Presence of automatic (implantable) cardiac defibrillator; Z88.5 Allergy status to narcotic agent; F17.210 Nicotine dependence, cigarettes, uncomplicated; Z79.01 Long term (current) use of anticoagulants; Z79.82 Long term (current) use of aspirin; J44.9 Chronic obstructive pulmonary disease, unspecified; G89.4 Chronic pain syndrome; I25.5 Ischemic cardiomyopathy; I95.2 Hypotension due to drugs; J45.909 Unspecified asthma, uncomplicated; E78.00 Pure hypercholesterolemia, unspecified; K74.60 Unspecified cirrhosis of liver
CPT/HCPCS: 36415; 36416; 71010; 80048; 80053; 80061; 80074; 80306; 80307; 82550; 83690; 84443; 84484; 85025; 85610; 85730; 90471; 90732; 93005; 93455; 93459; 93567; 93798; 94640; 96361; 96365; C1769; G0009; J1644; J2310; J7050; J7620; S0028

== ENCOUNTER 2017-05-23 16:24 | Emergency (ER) | payer OTHER | END 2017-05-23 22:47 | disposition home or self-care (01) | LOC: ERS 16:24 | DX: T40.2X1A Poisoning by other opioids, accidental (unintentional), initial encounter (principal); J45.909 Unspecified asthma, uncomplicated; I50.9 Heart failure, unspecified; E03.9 Hypothyroidism, unspecified; J44.9 Chronic obstructive pulmonary disease, unspecified; F41.9 Anxiety disorder, unspecified; F31.9 Bipolar disorder, unspecified; F17.210 Nicotine dependence, cigarettes, uncomplicated; Z79.899 Other long term (current) drug therapy | CPT/HCPCS: 96360; 96361; 99406 ==

== ENCOUNTER 2017-09-13 08:07 | Inpatient (IN) | payer OTHER ==
[2017-09-13 08:43] LABS: Hemoglobin 13.6 g/dL (12.0-16.0); Mean Corpuscular HGB CONC 33.3 g/dL (32.0-36.0); Mean Corpuscular Hemoglobin 31.2 pg (27.0-31.0); Mean Corpuscular Volume 93.6 fl (81.0-99.0); Mean Platelet Volume 7.8 fL (7.4-10.4); Platelet Count 160 thou/uL (130-400); RBC Distribution Width 12.8 % (11.5-14.5); Red Blood Cell (RBC) Count 4.36 mill/uL (4.20-5.40); White Blood Cell (WBC) Count 22.8 thou/uL (4.8-10.8)
[2017-09-13 09:00] LABS: ALT (SGPT) 43 U/L (8-55); AST (SGOT) 59 U/L (5-34); Albumin 4.1 g/dL (3.5-5.0); Alkaline Phosphatase 150 U/L (40-150); Anion Gap 15 mmol/L (10-20); BUN (Urea Nitrogen) 13 mg/dL (7.0-18.7); Bilirubin, Total 1.8 mg/dL (0.2-1.2); CK (CPK) 180 U/L (29-168); Calc. Creatinine Clearance 0 mL/min (70-130); Calcium 9.1 mg/dL (7.8-10.44); Carbon Dioxide 24 mmol/L (22-29); Chloride 94 mmol/L (98-107); Estimated GFR-MDRD 69; Globulin 3.4 g/dL (2.4-3.5); Glucose 145 mg/dL (70-105); Potassium 3.2 mmol/L (3.5-5.1); Protein, Total 7.5 g/dL (6.0-8.3); Sodium 130 mmol/L (136-145)
[2017-09-13 09:01] LABS: Band 16 % (5-11); Lymphocytes 2 % (21-51); MDiff Complete? YES; Monocytes 8 % (0-10); Neutrophil 74 % (42-75)
[2017-09-13 09:09] LABS: CKMB 7.7 ng/mL (0-6.6); Troponin I 1.205 ng/mL (< 0.028)
[2017-09-13] MEDS ORDERED: Azithromycin 500 MG in Sodium Chloride 0.9% 250 ML 250 ML IVPB SCH (09:30)
[2017-09-13] MEDS ORDERED: Albuterol Sulfate 2.5 mg/3 ml Neb ONE (09:57)
--- NOTE | 2017-09-13 09:59 | RAD ---
CHEST 1 VIEW: HISTORY: Dyspnea and shortness of breath. COMPARISON: 03/06/14. FINDINGS: There are sternotomy wires. Heart is enlarged. Stable left-sided defibrillator. Diffuse interstiti al and alveolar opacities. No pneumothorax. IMPRESSION: Diffuse interstitial and alveolar opacities due to congestive heart failure or possibly multifocal pn eumonia. Correlate clinically. POS: MATTH
[2017-09-13] MEDS ORDERED: Azithromycin 500 MG VIAL ONE (10:00)
[2017-09-13] MEDS ORDERED: cefTRIAXone\\ROCEPHIN 2 GM VIAL ONE (10:00)
[2017-09-13 10:32] LABS: Actual Bicarbonate (HCO3a) 22.4 mEq/L (22-26); Base Excess (BEa) -3.2 mEq/L (0 (+/-) 2.5); CO2 Tension 42.2 mmHg (35.0-45.0); O2 Tension (PaO2) 49.4 mmHg (80.0-100.0); pH, Arterial 7.34 (7.35-7.45)
[2017-09-13 10:33] LABS: Hematocrit-ABG 41.3 % (36.0-47.0); Hemoglobin (Hb) 12.2 g/dL (12.0-16.0)
[2017-09-13 10:34] LABS: Analyzer IN Cardio ER; Calcium, Ionized 1.1 mmol/L (1.12-1.30); Puncture Site PRA
[2017-09-13] MEDS ORDERED: Norepinephrine 8 MG/0.9% NS 250 ML ONE (11:09)
[2017-09-13] MEDS ORDERED: Nitroglycerin 0.4 MG TAB (25 Tab Bottle) SL PRN (11:14)
[2017-09-13] MEDS: Norepinephrine 8 MG/0.9% NS 250 ML IVPB SCH (12:00)
[2017-09-13 12:09] LABS: Troponin I 3.399 ng/mL (< 0.028)
--- NOTE | 2017-09-13 12:50 | RAD ---
SUPINE FRONTAL CHEST RDIOGRAPH: DATE: 09/13/17. TIME: 11:12 a.m. COMPARISON: 09/13/17 at 8:20 a.m. HISTORY: Central line placement, shortness of breath. FINDINGS: Supine imaging limits assessment for pneumothorax and pleural fluid. The is a right-sided vascular c atheter with distal tip overlying the expected location of the proximal right atrium. Stable single- lead transvenous pacing device and midline sternotomy wires. There is prominence of the cardiac silh ouette, stable. There is extensive interstitial and alveolar opacity noted throughout both lungs, worsened bilaterall y, especially on the right. IMPRESSION: Nonspecific worsening extensive interstitial and alveolar opacity. RIGHT sided vascular catheter as above. POS: MATEO
[2017-09-13 13:11] LABS: Lactic Acid 3.1 mmol/L (0.5-2.2)
[2017-09-13] MEDS ORDERED: Propofol 1,000 MG/100 ML VIAL IV ONE (14:49)
[2017-09-13] MEDS ORDERED: Furosemide 40 MG/4 ML VIAL ONE (14:53)
[2017-09-13 15:05] LABS: Troponin I 5.611 ng/mL (< 0.028)
[2017-09-13] MEDS ORDERED: CCU Electrolyte Replacement 1 EACH IVPB ONE (15:17)
[2017-09-13] MEDS ORDERED: Acetaminophen 650 MG/20.3 ML UDCUP PO PRN (15:17)
[2017-09-13] MEDS ORDERED: Albuterol Sulfate 2.5 mg/3 ml Neb NEB PRN (15:29)
[2017-09-13] MEDS ORDERED: Furosemide 40 MG/4 ML VIAL SLOW IVP SCH ×2 (15:30→21:00)
[2017-09-13] MEDS ORDERED: Magnesium 2 GM/NS 0.9% 100 ML 2 GM in Premix Bag 1 BAG IVPB SCH (15:30)
[2017-09-13] MEDS ORDERED: Potassium Chloride 20 MEQ TAB PO PRN (15:33)
[2017-09-13] MEDS ORDERED: Potassium Phosphate 12 MMOL in Sodium Chloride 0.9% 250 ML 250 ML IV PRN (15:33)
[2017-09-13] MEDS ORDERED: CCU ELECTROLYTE REPLACEMENT PROTOCOL FS PRN (15:33)
[2017-09-13] MEDS ORDERED: Potassium Chloride 40 MEQ in Sodium Chloride 0.9% 250 ML 250 ML IVPB PRN (15:33)
[2017-09-13] MEDS ORDERED: Potassium Phosphate 9 MMOL in Sodium Chloride 0.9% 100 ML IVPB PRN (15:33)
[2017-09-13] MEDS ORDERED: Magnesium Oxide 400 MG TAB PO PRN ×2 (15:33)
[2017-09-13] MEDS ORDERED: Magnesium 2 GM/NS 0.9% 100 ML 2 GM in Premix Bag 1 BAG IVPB PRN (15:33)
[2017-09-13] MEDS ORDERED: Potassium Chloride 40 MEQ in Premix Bag 1 BAG IVPB PRN (15:33)
[2017-09-13] MEDS ORDERED: Potassium Phosphate 15 MMOL in Sodium Chloride 0.9% 250 ML 250 ML IV PRN (15:33)
[2017-09-13] MEDS: Potassium Chloride 40 MEQ in Premix Bag 1 BAG IVPB SCH ×2 (15:37→20:00)
[2017-09-13] MEDS ORDERED: Guaifenesin DM 100-10/5 ML UDCUP PO PRN (15:39)
--- NOTE | 2017-09-13 15:42 | RAD ---
ONE VIEW CHEST: COMPARISON: 09/13/17. HISTORY: Sepsis. FINDINGS: Stable right-sided central venous catheter. Stable single-lead defibrillator. Persistent and diffus e interstitial and alveolar opacities. Stable cardiomegaly. IMPRESSION: No significant change. POS: MATEO
[2017-09-13] MEDS: Potassium Chloride 20 MEQ TAB PO SCH (15:44)
[2017-09-13] MEDS: Piperacillin/Tazobactam 3.375 GM in Sodium Chloride 0.9% 100 ML IVPB SCH ×2 (15:50→21:06)
[2017-09-13] MEDS: Vancomycin HCl 1.25 GM in Sodium Chloride 0.9% 250 ML 250 ML IVPB SCH (16:09)
[2017-09-13 16:52] LABS: Amphetamine Not Detected (NotDetected); Barbiturates Screen Not Detected (NotDetected); Benzodiazepine Screen Not Detected (NotDetected); Cocaine Metabolite Screen Not Detected (NotDetected); Medtox Control Line Valid? VALID (VALID); Medtox Reader # READER 4; Methadone Not Detected (NotDetected); Methamphetamine Not Detected (NotDetected); Opiate Screen Not Detected (NotDetected); Oxycodone Screen Not Detected (NotDetected); Phencyclidine (PCP) Not Detected (NotDetected); THC/Cannabinoid Screen Not Detected (NotDetected); Tricyclic Screen Not Detected (NotDetected)
--- NOTE | 2017-09-13 17:04 | HP ---
PRIMARY CARE PHYSICIAN: PRESENTING COMPLAINT: Shortness of breath. HISTORY OF PRESENT ILLNESS: Ms. Cynthia Meek is a 47-year-old female with a past medical history of COPD; CAD, status post AICD placement, with severe multivessel CAD; NSTEMI; ischemic hepatitis; and chronic systolic CHF; who presented to the emergency room with a history of shortness of breath. The patient reports she woke up around 1:00 a.m. with shortness of breath, dizziness, cough productive of yellow sputum, and 2 episodes of diarrhea consisting of loose stools with no blood or mucus. She has no fevers or chills. She also reports some chest pain this morning, which was retrosternal, 6/10, did not radiate, had no aggravating factors, was relieved by taking nitroglycerin. She denies orthopnea, palpitations, PND, or lower extremity edema. At the emergency room, she was found to be hypoxic with oxygen saturation in the low 70s. She was also hypotensive with blood pressure in the 70s/40s. She received 2 liters of IV fluids, normal saline, without improvement in her blood pressure. Her labs revealed a sodium of 130, potassium of 3.2. Lactic acid on presentation was 4.1. Initial troponin was 1.205 and BNP was 613. Repeat troponin increased to 3.399 and then 5.6. Hematology showed WBC of 22.8, otherwise normal. An ABG done showed pH of 7.34 with pO2 of 49 and pCO2 of 42. This was while she was on 100% nonrebreather. Blood cultures were taken and she received 1 dose of ceftriaxone and azithromycin. Central line was also placed and patient was started on Levophed and BiPAP, as her oxygen saturation did not improve greater than 84% while on nonrebreather. EKG showed no signs of acute ischemia, and chest x-ray initially done showed nonspecific, worsened, extensive interstitial and alveolar opacity bilaterally, especially on the right. PAST MEDICAL HISTORY: As stated in the HPI. PAST SURGICAL HISTORY: Hysterectomy and cholecystectomy. FAMILY HISTORY: Reviewed and noncontributory. SOCIAL HISTORY: Admits to smoking cigarettes, but denied alcohol or illicit drug use. ALLERGIES: CODEINE. HOME MEDICATIONS: Albuterol sulfate inhaler, aspirin 81 mg daily, atorvastatin 20 mg daily, Tessalon Perles 100 mg t.i.d., carvedilol 3.125 mg b.i.d., vitamin D3 1000 units daily, Plavix 75 mg daily, Nexium 40 mg daily, fish oil 1 capsule daily, furosemide 40 mg daily, gabapentin 800 mg b.i.d., ibuprofen 200 mg q.4 hours p.r.n. for pain, iron tablets 27 mg daily, levothyroxine 125 mcg daily, losartan 25 mg daily, nitroglycerin tablet 0.4 mg every 5 minutes p.r.n., paroxetine 60 mg daily, potassium chloride 99 mg daily, and spironolactone 25 mg q.a.m. REVIEW OF SYSTEMS: A 12-point review of systems conducted and were negative except as stated in HPI. PHYSICAL EXAMINATION: VITAL SIGNS: On presentation, blood pressure 88/67, pulse rate 95, respiratory rate 20, oxygen saturation 86% on nonrebreather. GENERAL: In moderate distress, well oriented. HEENT: Normocephalic, atraumatic. Not pale, anicteric. Moist mucous membranes. PERRLA, EOMI. NECK: Supple. No JVD. RESPIRATORY: Bilateral rhonchi, in respiratory distress. CARDIOVASCULAR: Tachycardic with regular rhythm. No murmurs, rubs, or gallop. S1 and S2 only. ABDOMEN: Soft, nontender, nondistended. No hepatosplenomegaly. Bowel sounds are normoactive. NEUROLOGIC: Alert and well oriented to time, place, and person. No focal deficits. MUSCULOSKELETAL: No edema. Full range of movements. PSYCHIATRIC: Normal mood and affect. SKIN: Warm, dry, well-perfused. IMAGING: EKG shows no signs of active ischemia. Chest x-ray as dictated in HPI. ASSESSMENT AND PLAN: 1. Septic shock: This is likely from a pulmonary infection. She had elevated WBC and infiltrate/edema on chest x-ray. Blood cultures have been taken and she has been started on broad-spectrum antibiotics. She is also on Levophed, as she was still hypotensive despite over 2 liters of IV fluids. She will be admitted to the ICU. Pulmonary has been consulted and we will follow the patient as well. We will continue BiPAP for now. 2. NSTEMI: there are real concerns for an [id number] myocardial infarction. We will start her on therapeutic Lovenox and consult Cardiology. She is currently chest pain free. We will get EKG p.r.n. In addition, she had elevated BNP and will require furosemide. Continue nitroglycerin sublingually p.r.n. for chest pain. 3. Acute Pulmonary Edema/Acute hypoxic respiratory failure: This is likely due to pneumonia v flash pulmonary edema. We will continue BiPAP, antibiotics with scheduled and p.r.n. nebulizer therapy. We will also place on methylprednisolone 40 mg daily and IV diuretics. 4. History of coronary artery disease: Status post automatic implantable cardioverter-defibrillator. Continue management as above. 5. Hypothyroidism: We will obtain TSH and continue levothyroxine. 6. The patient will also require a TTE, procalcitonin, and electrolyte replacement, as she had hyperkalemia on presentation. We will also continue to monitor magnesium. 7. We will also resume her home medications except contraindicated by her septic shock. 8. Code Status: FULL CODE. 9. Deep venous thrombosis prophylaxis, therapeutic Lovenox. Critical Care time: 45 minutes. OLE
--- NOTE | 2017-09-13 20:00 | CON ---
DATE OF SERVICE: 09/13/2017 SERVICE: Pulmonary Medicine. REASON FOR CONSULTATION: Respiratory failure. HISTORY OF PRESENT ILLNESS: The patient is a 47-year-old white female with past medical history significant for polysubstance drug abuse. She also has advanced heart failure and horrendous coronary artery disease. She has a history of coronary bypass graft. That being said, she has multiple vessels that are flow limiting. She does not have very good targets and is not a candidate for a revascularization procedure once again. She was in her usual state of health apparently until yesterday. She has a history of opiate abuse. She is supposed to be on Suboxone. She is to do 1 strip a day, but this morning, apparently, she did 2. She developed increasing shortness of breath after she took a nap. She presented to the emergency department. They thought that she had some heart failure. She was given 2 liters of fluid. She developed increasing respiratory distress. BiPAP was initiated. She was tucked into the ICU. She presented with marginal blood pressures. As such, a central line was placed and she was started on Levophed. She has developed progressive respiratory failure during this hospital stay. She is tachypneic and uncomfortable. She denies any fevers or chills, but was coughing up yellow sputum when she woke up. PAST MEDICAL HISTORY: 1. Coronary artery disease. 2. Hypertension. 3. Dyslipidemia. 4. Hypothyroidism. 5. Chronic hepatitis C. 6. Chronic systolic heart failure. 7. Bipolar disorder. 8. Anxiety disorder. 9. Polysubstance drug abuse, especially with opiates. PAST SURGICAL HISTORY: 1. Coronary artery bypass graft. 2. Cholecystectomy. 3. Percutaneous coronary artery intervention. 4. AICD placement. 5. Hysterectomy. 6. Tonsillectomy. ALLERGIES: CODEINE causes itching. MEDICATIONS: List of her inpatient medications were reviewed. Multiple updates were made. FAMILY HISTORY: Noncontributory. SOCIAL HISTORY: She is a daily smoker. She has a greater than [id number] history of smoking. She uses multiple illicit drugs, but really mostly abuses opiates when she can. She denies any IV drugs. She denies significant alcohol use. She has no exposure to chemicals, dust, asbestos, or tuberculosis. REVIEW OF SYSTEMS: General, head, ears, eyes, nose, throat, cardiovascular, respiratory, GI, , musculoskeletal, neurologic and skin is negative except as mentioned in the HPI. PHYSICAL EXAMINATION: VITAL SIGNS: Afebrile with T-max of 100.2. Pulse 97, blood pressure 107/69, respirations 36, saturation 88% on a nonrebreather. GENERAL: The patient is awake and alert. She is visibly uncomfortable. She is using accessory muscles and is quite tachypneic. HEENT: Normocephalic, atraumatic. Sclerae are white, conjunctivae pink. Oral mucosa is moist and without lesions. LUNGS: Decent air entry bilaterally. There is no prolonged expiratory phase. Rhonchi and crackles are both extensive. HEART: Normal rate, regular. ABDOMEN: Soft, nontender, nondistended. Bowel sounds positive. MUSCULOSKELETAL: No cyanosis or clubbing. There is bilateral 1+ pitting edema. GENITOURINARY: Luke catheter in place. NEUROLOGIC: Grossly nonfocal. LABORATORY DATA: WBC 22.8, hemoglobin 13.6, platelets 160,000. Band count 16% . INR previously 1.2. PH 7.34, pCO2 of 42, pO2 of 49 on nonrebreather at that time. This was very clearly an ABG. Potassium 3.2. Basic metabolic profile is otherwise unremarkable. Liver function studies are significant for total bilirubin of 1.8, which is above baseline, and an AST of 59. Troponin is up trending from 1.2 up to 5.6. Procalcitonin 2.5. Liver function studies are essentially unremarkable otherwise. Hepatitis C was previously positive. IMAGIN. Chest x-ray demonstrates diffuse interstitial and alveolar opacities secondary to congestive heart failure. Pneumonia cannot entirely be excluded, though I favor the heart failure. 2. A repeat chest x-ray demonstrates interval worsening of the pulmonary edema. Cardiac silhouette is quite enlarged. There is a new right-sided subclavian central venous catheter terminates in good position with no evidence of a pneumothorax. ASSESSMENT: 1. Acute hypoxic respiratory failure. 2. Acute on chronic systolic heart failure. 3. Community-acquired pneumonia, possible. 4. Opiate abuse. 5. Chronic hepatitis C. DISCUSSION AND PLAN: We will give the patient a dose of Lasix. We will also replace magnesium and potassium. The Levophed will be continued and weaned away to keep her map above 65. We put her on noninvasive ventilation. CPAP has been adjusted at bedside in order to improve oxygenation. We are providing her with a little bit of pressure support on top of that just to improve comfort. We are going to watch her for about 15-20 minutes. If she fails to turn around, we will proceed with extubation. Pulmonary Critical Care will continue to follow very closely. Critical care time 75 minutes. OLE
[2017-09-13] MEDS: Docusate 100 MG CAP PO SCH (21:01)
[2017-09-13] MEDS: Enoxaparin Sodium 100 MG/ML SYRINGE SC SCH (21:01)
[2017-09-13] MEDS: Gabapentin 300 MG CAP PO SCH (21:02)
[2017-09-13] MEDS: Acetaminophen 325 MG TAB PO PRN (21:29)
--- NOTE | 2017-09-14 01:22 | CON ---
DATE OF CONSULTATION: 09/13/2017 HISTORY OF PRESENT ILLNESS: Cynthia Meek is a 47-year-old, white female with history of CABG x4 in 2013 in [place]. She also underwent placement of an ICD. In looking at the chest x-ray, there appears to be only one lead, although the device has two leads in the header and this may actually be a plug in the atrial port. She is uncertain when the ICD was placed in regard to her CABG. In 07/2016, she was seen by Dr. Prather for shortness of breath and diaphoresis. She underwent Cardiolite testing, which revealed a large fixed defect in the anteroseptal-lateral chavarria. No reversibility. She was hospitalized in 02/2017 after she apparently got a hold of 2 Fentanyl 100 mg patches. She was found on the floor unresponsive, taken to [facility]. The patch was removed and apparently she was later discharged. Later that same day, she was again taken back to [facility]. She had 50 mg fentanyl patch and was apparently chewing on it and found to be very lethargic. She had abnormal cardiac enzymes and was transferred here for further evaluation. During that admission in 02/2017, she underwent cardiac catheterization by Dr. Arriaza. There was a 99% left main stenosis, multiple stenoses in the LAD. There was a free ALATORRE graft that originated at the aorta and attached to the mid LAD and also to the first diagonal (Y graft). There was a 50% lesion in the proximal anastomosis and a 99% distal anastomosis. There was a vein graft to the distal right coronary, which was patent. There was a vein graft to the first obtuse marginal that was totally occluded. Ejection fraction was 20%-25%. She was seen by Dr. Ronnell Haskins and it was felt that no further surgical option could be offered and that she should only be treated medically. She was again seen in 05/2017 in the emergency room for an overdose. She now presents complaining of 1 week of increased shortness of breath. She denies running out or missing any of her medications. She woke up this morning at 1:00 a.m. with shortness of breath. She denied any chest pain to me. She went to the emergency room and was found to be hypoxic with oxygen saturation in the low 70s. Blood pressure 70/40. She received 2 liters of IV fluid. Troponin was 1.205. Blood gas revealed a pH of 7.34, pCO2 of 49, pO2 of 42, on 100% rebreather. She was given a dose of ceftriaxone and azithromycin. At the present time, she has BiPAP on and states that she is feeling better. PAST MEDICAL HISTORY: Hypertension, hypercholesterolemia, chronic hepatitis C, ischemic cardiomyopathy, hypothyroidism, anxiety and depression, history of polysubstance abuse, coronary artery disease felt to be treated medically, ischemic cardiomyopathy. OPERATIONS: CABG, ICD placement, history of PTCA and stenting, hysterectomy, and cholecystectomy. MEDICATIONS: Include albuterol, aspirin 81 daily, atorvastatin 20 daily, Tessalon Perles 1000 t.i.d., carvedilol 3.125 b.i.d., Plavix 75 daily, Nexium 40 daily, furosemide 40 q.a.m., gabapentin 800 b.i.d., ibuprofen 200 mg q.4 hours p.r.n., iron, levothyroxine 125 mcg daily, losartan 25 daily, nitroglycerin tablets p.r.n., paroxetine 60 daily, potassium chloride 90 mg daily, spironolactone 25 q.a.m. ALLERGIES: CODEINE. SOCIAL HISTORY: She continues to smoke. She does not drink. REVIEW OF SYSTEMS: Otherwise is unremarkable. PHYSICAL EXAMINATION: VITAL SIGNS: Blood pressure 103/51, pulse of 80. The patient is on intravenous Levophed. HEENT: PERRL. NECK: Supple. CHEST: Reveals distant breath sounds. CARDIAC: S1, S2 normal, without any S3, S4, or murmurs. ABDOMEN: Normal bowel sounds, without tenderness, organomegaly. EXTREMITIES: Revealed no clubbing, cyanosis, or edema. NEUROLOGIC: Grossly intact. LABORATORY AND DIAGNOSTIC DATA: EKG reveals normal sinus rhythm with nonspecific interventricular conduction delay with QRS of 128 milliseconds, lateral T-wave changes. White count 22,800, hemoglobin 13.6, hematocrit 40.8, platelets 160,000. Sodium 130, potassium 3.2, chloride 94, carbon dioxide 24, BUN 13, creatinine 0.88. Troponin I is up to 5.611. Urine drug screen is negative. Chest x-ray reveals a florid pulmonary edema with cardiomegaly. ICD is in place with what appears to be a single lead, although the ICD device has 2 ports. IMPRESSION: 1. Acute pulmonary edema. 2. Nyv-DJ-[id number] elevation myocardial infarction. 3. History of coronary artery bypass grafting with catheterization 6 months ago. It was felt that there are no further options in terms of intervention for her coronary artery disease and she should only be treated medically. 4. Status post implantable cardioverter-defibrillator placement. 5. Ischemic cardiomyopathy with current ejection fraction of 15%-20%. 6. Hypertension. 7. Hyperlipidemia. 8. Hypothyroidism. 9. Chronic hepatitis C. 10. Anxiety, depression. 11. Polysubstance abuse. PLAN: The patient is currently on BiPAP and certainly may require intubation. She is not a candidate for any further cardiac intervention. Her ICD will be interrogated. OLE
[2017-09-14] MEDS: Piperacillin/Tazobactam 3.375 GM in Sodium Chloride 0.9% 100 ML IVPB SCH ×4 (03:26→21:52)
[2017-09-14 04:23] LABS: #Monocytes 0.4 thou/uL (0.11-0.59); #Neutrophils 15.6 thou/uL (1.40-6.50); %Basophils 0.1 % (0.0-1.0); %Eosinophils 0.1 % (0.0-10.0); %Lymphocytes 5.9 % (21.0-51.0); %Monocytes 2.4 % (0.0-10.0); %Neutrophils 91.5 % (42.0-75.0); Hemoglobin 12.3 g/dL (12.0-16.0); Mean Corpuscular HGB CONC 33.3 g/dL (32.0-36.0); Mean Corpuscular Hemoglobin 31.3 pg (27.0-31.0); Mean Corpuscular Volume 94.2 fl (81.0-99.0); Mean Platelet Volume 8.5 fL (7.4-10.4); Platelet Count 121 thou/uL (130-400); RBC Distribution Width 12.9 % (11.5-14.5); Red Blood Cell (RBC) Count 3.94 mill/uL (4.20-5.40); White Blood Cell (WBC) Count 17.1 thou/uL (4.8-10.8)
[2017-09-14 04:51] LABS: Anion Gap 12 mmol/L (10-20); BUN (Urea Nitrogen) 13 mg/dL (7.0-18.7); Calc. Creatinine Clearance 127 mL/min (70-130); Carbon Dioxide 27 mmol/L (22-29); Cardiac Risk 3.1 (Less than 4.5); Chloride 104 mmol/L (98-107); Cholesterol 66 mg/dl (< 200 Desired); Estimated GFR-MDRD 81; Glucose 170 mg/dL (70-105); HDL Cholesterol 21 mg/dL (>60 Neg Risk); LDL Cholesterol, Calculated 28 mg/dL; Magnesium 1.8 mg/dL (1.6-2.6); Potassium 3.7 mmol/L (3.5-5.1); Sodium 139 mmol/L (136-145); Triglycerides 83 mg/dL (Less than 150)
[2017-09-14] MEDS: Vancomycin HCl 1.25 GM in Sodium Chloride 0.9% 250 ML 250 ML IVPB SCH ×2 (05:03→17:28)
[2017-09-14] MEDS: Levothyroxine Sodium 100 MCG TAB PO SCH (05:15)
[2017-09-14] MEDS: Norepinephrine 8 MG/0.9% NS 250 ML IVPB SCH (05:54)
[2017-09-14] MEDS ORDERED: Levothyroxine Sodium 125 MCG TAB PO SCH (06:00)
[2017-09-14] MEDS ORDERED: Furosemide 40 MG/4 ML VIAL SLOW IVP SCH ×2 (06:00→20:00)
[2017-09-14 08:15] LABS: Lactic Acid 2.1 mmol/L (0.5-2.2)
[2017-09-14] MEDS ORDERED: Clopidogrel Bisulfate 75 MG TAB PO SCH (09:00)
[2017-09-14] MEDS ORDERED: Aspirin 300 MG Suppository PR SCH (09:00)
[2017-09-14] MEDS: PARoxetine 20 MG TAB PO SCH (09:02)
[2017-09-14] MEDS: FLUoxetine HCl 20 MG CAP PO SCH (09:02)
[2017-09-14] MEDS: Atorvastatin Calcium 20 MG TAB PO SCH (09:06)
[2017-09-14] MEDS: Clopidogrel Bisulfate 75 MG TAB PO SCH (09:06)
[2017-09-14] MEDS: Gabapentin 300 MG CAP PO SCH ×3 (09:06→21:52)
[2017-09-14] MEDS: Docusate 100 MG CAP PO SCH ×2 (09:07→21:52)
[2017-09-14] MEDS: Aspirin 81 mg Enteric Coated Tablet PO SCH (09:07)
[2017-09-14] MEDS: Potassium Chloride 20 MEQ TAB PO SCH ×2 (09:10→16:37)
[2017-09-14] MEDS: Enoxaparin Sodium 100 MG/ML SYRINGE SC SCH ×2 (09:11→21:52)
[2017-09-14] MEDS: Azithromycin 200 MG/5 ML Oral Suspension PO SCH (09:13)
--- NOTE | 2017-09-14 09:28 | PDOC.PN ---
- Subjective Encounter Start Date: 09/14/17 Encounter Start Time: 09:35 Patient seen and examined after being admitted for acute pulmonary edema, Acute hypoxemic respiratory failure. Doing well in the CCU and responding to treatment. She has no complaints today and had no acute overnight events. Pulmonary and cardiology on board. - Objective Resuscitation Status: Resuscitation Status FULL:Full Resuscitation MAR Reviewed: Yes Vital Signs & Weight: Vital Signs (12 hours) Pulse 09/14/17 01:52 76 Weight Admit Weight 195 lb 15.855 oz Weight 2.885 oz Most Recent Monitor Data Heart Rate from ECG 85 NIBP 113/73 NIBP BP-Mean 90 Respiration from ECG 35 SpO2 93 I&O: 09/13/17 09/14/17 09/15/17 06:59 06:59 06:59 Intake Total 1517.9 Output Total 4145 220 Balance -2627.1 -220 Result Diagrams: 09/14/17 03:35 09/14/17 03:35 Phys Exam - Physical Examination Constitutional: NAD HEENT: PERRLA, moist MMs, sclera anicteric, oral pharynx no lesions Neck: no JVD, supple, full ROM Respiratory: no wheezing, no rales, no rhonchi, clear to auscultation bilateral Cardiovascular: RRR, no significant murmur, no rub Gastrointestinal: soft, non-tender, no distention, positive bowel sounds Musculoskeletal: no edema, pulses present Neurological: non-focal, moves all 4 limbs Psychiatric: normal affect, A&O x 3 Skin: no rash, normal turgor Dx/Plan (1) Acute hypoxemic respiratory failure Code(s): J96.01 - ACUTE RESPIRATORY FAILURE WITH HYPOXIA Status: Acute Comment: Stable on BiPAP (2) NSTEMI (non-ST elevated myocardial infarction) Code(s): I21.4 - NON-ST ELEVATION (NSTEMI) MYOCARDIAL INFARCTION Status: Acute Comment: Diuresing well. Continue furosemide. Patirent has mutlivessel disease and is s/p CABG about 6 months ago. Cardiology reviewed- no further intervention. Medically manage. (3) Acute pulmonary edema Code(s): J81.0 - ACUTE PULMONARY EDEMA Status: Acute Comment: Diuresing well. Continue furosemide. (4) Septic shock Code(s): A41.9 - SEPSIS, UNSPECIFIED ORGANISM; R65.21 - SEVERE SEPSIS WITH SEPTIC SHOCK Status: Acute Comment: WBC, lactate trending down. Continue broad spectrum antibiotics, pressors. f/u cultures. (5) CAD (coronary artery disease) Code(s): I25.10 - ATHSCL HEART DISEASE OF [place] CORONARY ARTERY W/O ANG PCTRS Status: Acute Qualifiers: Coronary Disease-Associated Artery/Lesion type: unspecified vessel or lesion type [place] vs. transplanted heart: [place] heart Associated angina: without angina Qualified Code(s): I25.10 - Atherosclerotic heart disease of [place] coronary artery without angina pectoris (6) Hypothyroidism Code(s): E03.9 - HYPOTHYROIDISM, UNSPECIFIED Status: Chronic Qualifiers: Hypothyroidism type: unspecified Qualified Code(s): E03.9 - Hypothyroidism , unspecified (7) Acute on chronic systolic CHF (congestive heart failure) Code(s): I50.23 - ACUTE ON CHRONIC SYSTOLIC (CONGESTIVE) HEART FAILURE Status : Acute Comment: Diuresing well. Continue furosemide. - Plan cont current plan of care, plan discussed w/ family, sexton catheter, continue antibiotics, respiratory therapy, DVT proph w/lovenox Continue BiPAP Daily labs Continue Levophed and wean off Continue antibiotics, furosemide, systemic steroids f/u blood cultures. Monitor vital signs closely. Review of Systems - Medications/Allergies Allergies/Adverse Reactions: Allergies Allergy/AdvReac Type Severity Reaction Status Date / Time codeine Allergy Intermediate HIVES/SWELL Verified 08/16/16 13:48 ING Medications: Current Medications Acetaminophen (Tylenol Elixir) 650 mg PO Q6H PRN PRN Reason: Fever > 101 or Mild Pain Acetaminophen (Tylenol) 650 mg PO Q4H PRN PRN Reason: Headache/Fever or Pain Last Admin: 09/13/17 21:29 Dose: 650 mg Albuterol Sulfate (Ventolin) 2.5 mg NEB [id number] PRN PRN Reason: Wheezing Albuterol/Ipratropium (Duoneb) 3 ml NEB [id number] PRN PRN Reason: SOB &/or Wheezing Aspirin (Ecotrin) 81 mg PO DAILY ZAK Last Admin: 09/14/17 09:07 Dose: 81 mg Atorvastatin Calcium (Lipitor) 20 mg PO DAILY ZAK Last Admin: 09/14/17 09:06 Dose: 20 mg Azithromycin (Zithromax) 500 mg PO DAILY [facility] Stop: 09/18/17 09:01 Last Admin: 09/14/17 09:13 Dose: 500 mg Clopidogrel Bisulfate (Plavix) 75 mg PO DAILY [facility] Last Admin: 09/14/17 09:06 Dose: 75 mg Docusate Sodium (Colace) 100 mg PO BID [facility] Last Admin: 09/14/17 09:07 Dose: 100 mg Enoxaparin Sodium (Lovenox) 90 mg SC 0900,2100 [facility] Last Admin: 09/14/17 09:11 Dose: 90 mg Fluoxetine HCl (Prozac) 40 mg PO DAILY [facility] Last Admin: 09/14/17 09:02 Dose: 40 mg Furosemide (Lasix) 40 mg SLOW IVP 0600 [facility] Last Admin: 09/14/17 05:16 Dose: Not Given Gabapentin (Neurontin) 600 mg PO TID [facility] Last Admin: 09/14/17 09:06 Dose: 600 mg Guaifenesin/Dextromethorphan (Robitussin Dm) 15 ml PO Q4H PRN PRN Reason: Cough Norepinephrine Bitartrate (Levophed) 250 mls @ 0 mls/hr IVPB INF [facility]; Titrate PRN Reason: Protocol Last Admin: 09/14/17 05:54 Dose: 250 mls Piperacillin Sod/Tazobactam (Sod 3.375 gm/ Sodium Chloride) 100 mls @ 200 mls/ hr IVPB 0400,1000,1600,2200 [facility] Last Admin: 09/14/17 03:26 Dose: 100 mls Vancomycin HCl 1.25 gm/ Sodium (Chloride) 250 mls @ 166.67 mls/hr IVPB 0500, 1700 [facility] Last Admin: 09/14/17 05:03 Dose: 250 mls Potassium Chloride 40 meq/ (Sodium Chloride) 270 mls @ 135 mls/hr IVPB ASDIR PRN PRN Reason: FOR SERUM K+ 2.5 - 3.5 Potassium Chloride 40 meq/ (Device) 100 mls @ 50 mls/hr IVPB ASDIR PRN PRN Reason: FOR SERUM K+ 2.5 - 3.5 Magnesium Sulfate 1 gm/ Sodium (Chloride) 102 mls @ 102 mls/hr IV PRN PRN PRN Reason: MAG LEVEL 1.4 - 2.0 Last Admin: 09/14/17 05:48 Dose: 102 mls Magnesium Sulfate 2 gm/ Device 100 mls @ 100 mls/hr IVPB ASDIR PRN PRN Reason: MAGNESIUM < 1.4 Potassium Phosphate 9 mmol/ (Sodium Chloride) 103 mls @ 25.75 mls/hr IVPB ASDIR PRN PRN Reason: Phosphate 1.0-1.8 Potassium Phosphate 12 mmol/ (Sodium Chloride) 254 mls @ 63.5 mls/hr IV ASDIR PRN PRN Reason: Serum phosphate 0.5-0.9 Potassium Phosphate 15 mmol/ (Sodium Chloride) 255 mls @ 63.75 mls/hr IV ASDIR PRN PRN Reason: Serum Phos < 0.5 Levothyroxine Sodium (Synthroid) 100 mcg PO 0600 [facility] Last Admin: 09/14/17 05:15 Dose: 100 mcg Magnesium Oxide (Magnesium Oxide) 400 mg PO BIDPRN PRN PRN Reason: FOR SERUM MAG 1.4 - 2.0 Magnesium Oxide (Magnesium Oxide) 800 mg PO PRN PRN PRN Reason: FOR SERUM MAG < 1.4 Methylprednisolone Sodium Succinate (Solu-Medrol) 40 mg IVP DAILY [facility] Last Admin: 09/14/17 09:02 Dose: 40 mg Miscellaneous Medication (Phos-Nak) 1 pkt PO TIDPRN PRN PRN Reason: FOR PHOS LEVEL 1.0 - 1.8 Miscellaneous Medication (Phos-Nak) 2 pkt PO TIDPRN PRN PRN Reason: FOR PHOS LEVEL 0.5 - 1.0 Miscellaneous Medication (Pharmacy To Dose) 1 each IVPB PRN PRN PRN Reason: . Nitroglycerin (Nitrostat) 0.4 mg SL Q5MIN PRN PRN Reason: Chest Pain Ccu Electrolyte (Replacement Protocol) 0 each FS PRN PRN PRN Reason: FOR ELECTROLYTE REPLACEMENT Pantoprazole Sodium (Protonix) 40 mg PO DAILY [facility] Last Admin: 09/14/17 09:07 Dose: 40 mg Paroxetine HCl (Paxil) 40 mg PO DAILY [facility] Last Admin: 09/14/17 09:02 Dose: 40 mg Potassium Chloride (K-Dur) 40 meq PO BID-[facility] Stop: 09/15/17 08:01 Last Admin: 09/14/17 09:10 Dose: 40 meq Potassium Chloride (K-Dur) 40 meq PO ASDIR PRN PRN Reason: FOR SERUM K+ 2.5 - 3.5 Potassium Chloride (Klor-Con) 40 meq PER TUBE ASDIR PRN PRN Reason: FOR SERUM K+ 2.5-3.5 Sodium Chloride (Flush - Normal Saline) 10 ml IVF PRN PRN PRN Reason: Saline Flush Sodium Chloride (Flush - Normal Saline) 10 ml IVF BID ZAK Last Admin: 09/14/17 09:03 Dose: 10 ml
[2017-09-14] MEDS ORDERED: cefTRIAXone\\ROCEPHIN 2 GM in Sodium Chloride 0.9% 100 ML IVPB SCH (10:00)
--- NOTE | 2017-09-14 10:06 | RAD ---
CHEST ONE VIEW: History: Sepsis. Comparison: 09-13-17 FINDINGS: Stable diffuse opacification of the lung parenchyma. Stable defibrillator and central venous catheter . IMPRESSION: No significant change. POS: MATT
[2017-09-14] MEDS: Furosemide 40 MG/4 ML VIAL SLOW IVP SCH (11:16)
[2017-09-14] MEDS ORDERED: Furosemide 100 MG/10 ML VIAL SLOW IVP SCH (14:00)
--- NOTE | 2017-09-14 15:27 | PRG ---
DATE OF SERVICE: 09/14/2017 SUBJECTIVE: Ms. Meek says she feels better. She does not want to decrease the pressure on her BiP AP; however, she says it feels good. OBJECTIVE: VITAL SIGNS: with blood pressure 113/73, respiratory rate 20, temperature 100.2. Intake and o utput negative . LUNGS: Remarkable for coarse equal breath sounds. HEART: Regular rhythm. ABDOMEN: Soft. EXTREMITIES: Without asymmetry. LABORATORY DATA: White count 17.1, hemoglobin 12.3, platelets 121,000. Sodium 139, potassium 3.7, chloride 104, bicarbonate 27, BUN 13, creatinine 0.76. IMAGING: Chest radiograph still shows diffuse infiltrates. IMPRESSION: 1. Pulmonary edema requiring noninvasive ventilatory support. 2. Non-ST segment elevation myocardial infarction. 3. History of coronary artery bypass grafting in the past with a catheterization 6 months ago showin g no surgical options. 4. Status post defibrillator placement. 5. Ischemic cardiomyopathy with ejection fraction of 15%. 7. Hypertension. PLAN: Continue support. Her anxiety is a big factor. I suspect this is more cardiogenic edema than an infectious process. Being with a 2 liter diuresis, she still has significant radiographic abnorm alities. I doubt this is alveolar hemorrhage. I will be happy to follow with the other physicians pepe garcia for her. I would continue antibiotics for now, noninvasive support, she appears comfortable on BiPAP. If the cultures remain negative, the vancomycin can be discontinued. Critical care time was 30 minutes.
--- NOTE | 2017-09-14 15:42 | PRG ---
DATE OF SERVICE: 09/14/2017. SUBJECTIVE: Ms. Meek is still very short of breath. She still has a CPAP in place. No chest pain. OBJECTIVE: VITAL SIGNS: Her blood pressure is 100/56, but she is on norepinephrine drip. LUNGS: Clear anteriorly and laterally. CARDIAC: Normal S1, normal S2. ABDOMEN: Soft, nontender. EXTREMITIES: There is only mild edema. X-RAY FINDINGS: Chest x-ray shows severe pulmonary edema. ASSESSMENT: 1. Congestive heart failure, systolic, acute on chronic, still decompensated. 2. Severe coronary artery disease. PLAN: 1. Additional intravenous diuretics. 2. Also she has suffered a non-ST elevation infarction. We will continue intravenous diuretics, asp irin and Plavix as well as enoxaparin. Prognosis guarded.
[2017-09-14] MEDS ORDERED: Furosemide 20 MG/2 ML VIAL SLOW IVP SCH (20:00)
[2017-09-15 04:42] LABS: #Lymphocytes 0.8 thou/uL (1.20-3.40); #Monocytes 0.2 thou/uL (0.11-0.59); #Neutrophils 11.7 thou/uL (1.40-6.50); %Basophils 0.1 % (0.0-1.0); %Eosinophils 0.1 % (0.0-10.0); %Lymphocytes 6.5 % (21.0-51.0); %Monocytes 1.9 % (0.0-10.0); %Neutrophils 91.5 % (42.0-75.0); Mean Corpuscular HGB CONC 33.3 g/dL (32.0-36.0); Mean Corpuscular Hemoglobin 31.5 pg (27.0-31.0); Mean Corpuscular Volume 94.7 fl (81.0-99.0); Mean Platelet Volume 8.8 fL (7.4-10.4); Platelet Count 110 thou/uL (130-400); RBC Distribution Width 13.1 % (11.5-14.5); Red Blood Cell (RBC) Count 3.49 mill/uL (4.20-5.40); White Blood Cell (WBC) Count 12.8 thou/uL (4.8-10.8)
[2017-09-15] MEDS: Piperacillin/Tazobactam 3.375 GM in Sodium Chloride 0.9% 100 ML IVPB SCH ×4 (04:59→21:43)
[2017-09-15] MEDS: Norepinephrine 8 MG/0.9% NS 250 ML IVPB SCH (05:01)
[2017-09-15 05:04] LABS: Anion Gap 11 mmol/L (10-20); BUN (Urea Nitrogen) 14 mg/dL (7.0-18.7); Calc. Creatinine Clearance 0 mL/min (70-130); Calcium 9.1 mg/dL (7.8-10.44); Carbon Dioxide 31 mmol/L (22-29); Chloride 101 mmol/L (98-107); Estimated GFR-MDRD 88; Glucose 151 mg/dL (70-105); Potassium 3.8 mmol/L (3.5-5.1); Sodium 139 mmol/L (136-145)
[2017-09-15] MEDS: Vancomycin HCl 1.25 GM in Sodium Chloride 0.9% 250 ML 250 ML IVPB SCH ×2 (05:09→17:08)
[2017-09-15 05:10] LABS: Critical Call Chem Troponin I RESULT DECREASING; Troponin I 4.311 ng/mL (< 0.028)
[2017-09-15] MEDS: Levothyroxine Sodium 100 MCG TAB PO SCH (05:14)
[2017-09-15] MEDS: Furosemide 40 MG/4 ML VIAL SLOW IVP SCH ×2 (05:14→13:32)
[2017-09-15 06:14] VITALS: BMI 28.4
[2017-09-15] MEDS ORDERED: Enoxaparin Sodium 100 MG/ML SYRINGE SC SCH (09:00)
--- NOTE | 2017-09-15 09:10 | PDOC.PN ---
- Subjective Encounter Start Date: 09/15/17 Encounter Start Time: 09:18 Patient seen and examined after being admitted for acute pulmonary edema, Acute hypoxemic respiratory failure. She has no complaints today and had no acute overnight events. Pulmonary and cardiology on board. - Objective Resuscitation Status: Resuscitation Status FULL:Full Resuscitation MAR Reviewed: Yes Vital Signs & Weight: Vital Signs (12 hours) Temp Pulse Resp Pulse Ox 09/15/17 08:05 74 09/15/17 08:00 99.7 F H 74 30 H 100 09/15/17 02:09 73 09/14/17 21:29 73 Weight Admit Weight 195 lb 15.855 oz Weight 181 lb 10.574 oz Most Recent Monitor Data Heart Rate from ECG 79 NIBP 110/69 NIBP BP-Mean 82 Respiration from ECG 35 SpO2 99 I&O: 09/14/17 09/15/17 09/16/17 06:59 06:59 06:59 Intake Total 1517.9 2227 0 Output Total 3095 4005 625 Balance -2627.1 -1778 -625 Result Diagrams: 09/15/17 03:55 09/15/17 03:55 Phys Exam - Physical Examination Constitutional: NAD HEENT: PERRLA, moist MMs, sclera anicteric Neck: no JVD, supple, full ROM Respiratory: no wheezing, no rales Coarse breath sounds b/l Cardiovascular: RRR, no significant murmur, no rub Gastrointestinal: soft, non-tender, no distention, positive bowel sounds Musculoskeletal: no edema, pulses present Neurological: non-focal Psychiatric: normal affect, A&O x 3 Dx/Plan (1) Acute hypoxemic respiratory failure Code(s): J96.01 - ACUTE RESPIRATORY FAILURE WITH HYPOXIA Status: Acute Comment: Stable on BiPAP (2) NSTEMI (non-ST elevated myocardial infarction) Code(s): I21.4 - NON-ST ELEVATION (NSTEMI) MYOCARDIAL INFARCTION Status: Acute Comment: Diuresing well. Continue furosemide. Has mutlivessel disease and is s/p CABG about 6 months ago. Cardiology reviewed- no further intervention. Medically manage. (3) Acute pulmonary edema Code(s): J81.0 - ACUTE PULMONARY EDEMA Status: Acute Comment: Diuresing well. Continue furosemide. (4) Septic shock Code(s): A41.9 - SEPSIS, UNSPECIFIED ORGANISM; R65.21 - SEVERE SEPSIS WITH SEPTIC SHOCK Status: Acute Comment: WBC, lactate trending down. Continue broad spectrum antibiotics, pressors. f/u cultures. (5) CAD (coronary artery disease) Code(s): I25.10 - ATHSCL HEART DISEASE OF [place] CORONARY ARTERY W/O ANG PCTRS Status: Acute Qualifiers: Coronary Disease-Associated Artery/Lesion type: unspecified vessel or lesion type [place] vs. transplanted heart: [place] heart Associated angina: without angina Qualified Code(s): I25.10 - Atherosclerotic heart disease of [place] coronary artery without angina pectoris (6) Hypothyroidism Code(s): E03.9 - HYPOTHYROIDISM, UNSPECIFIED Status: Chronic Qualifiers: Hypothyroidism type: unspecified Qualified Code(s): E03.9 - Hypothyroidism , unspecified (7) Acute on chronic systolic CHF (congestive heart failure) Code(s): I50.23 - ACUTE ON CHRONIC SYSTOLIC (CONGESTIVE) HEART FAILURE Status : Acute Comment: Diuresing well. > 8 liters output since admission. Continue furosemide. (8) Thrombocytopenia Code(s): D69.6 - THROMBOCYTOPENIA, UNSPECIFIED Status: Acute - Plan cont current plan of care, sexton catheter, continue antibiotics, respiratory therapy, DVT proph w/lovenox Stable on BiPAP. Being weaned off. Continue IV antibiotics. Blood cultures negative till date. Monitor vital signs closely. Wean off Levophed. Continue Lovenox for today. Monitor platelets. Review of Systems - Review of Systems Respiratory: Shortness of Breath - Medications/Allergies Allergies/Adverse Reactions: Allergies Allergy/AdvReac Type Severity Reaction Status Date / Time codeine Allergy Intermediate HIVES/SWELL Verified 08/16/16 13:48 ING Medications: Current Medications Acetaminophen (Tylenol Elixir) 650 mg PO Q6H PRN PRN Reason: Fever > 101 or Mild Pain Acetaminophen (Tylenol) 650 mg PO Q4H PRN PRN Reason: Headache/Fever or Pain Last Admin: 09/13/17 21:29 Dose: 650 mg Albuterol Sulfate (Ventolin) 2.5 mg NEB [id number] PRN PRN Reason: Wheezing Albuterol/Ipratropium (Duoneb) 3 ml NEB [id number] PRN PRN Reason: SOB &/or Wheezing Aspirin (Ecotrin) 81 mg PO DAILY [facility] Last Admin: 09/14/17 09:07 Dose: 81 mg Atorvastatin Calcium (Lipitor) 20 mg PO DAILY [facility] Last Admin: 09/14/17 09:06 Dose: 20 mg Azithromycin (Zithromax) 500 mg PO DAILY [facility] Stop: 09/18/17 09:01 Last Admin: 09/14/17 09:13 Dose: 500 mg Clopidogrel Bisulfate (Plavix) 75 mg PO DAILY [facility] Last Admin: 09/14/17 09:06 Dose: 75 mg Docusate Sodium (Colace) 100 mg PO BID [facility] Last Admin: 09/14/17 21:52 Dose: 100 mg Enoxaparin Sodium (Lovenox) 90 mg SC 0900,2100 [facility] Fluoxetine HCl (Prozac) 40 mg PO DAILY [facility] Last Admin: 09/14/17 09:02 Dose: 40 mg Furosemide (Lasix) 40 mg SLOW IVP 0600,1400 [facility] Last Admin: 09/15/17 05:14 Dose: 40 mg Gabapentin (Neurontin) 600 mg PO TID [facility] Last Admin: 09/14/17 21:52 Dose: 600 mg Guaifenesin/Dextromethorphan (Robitussin Dm) 15 ml PO Q4H PRN PRN Reason: Cough Norepinephrine Bitartrate (Levophed) 250 mls @ 0 mls/hr IVPB INF [facility]; Titrate PRN Reason: Protocol Last Admin: 09/15/17 05:01 Dose: 250 mls Piperacillin Sod/Tazobactam (Sod 3.375 gm/ Sodium Chloride) 100 mls @ 200 mls/ hr IVPB 0400,1000,1600,2200 [facility] Last Admin: 09/15/17 04:59 Dose: 100 mls Vancomycin HCl 1.25 gm/ Sodium (Chloride) 250 mls @ 166.67 mls/hr IVPB 0500, 1700 [facility] Last Admin: 09/15/17 05:09 Dose: 250 mls Potassium Chloride 40 meq/ (Sodium Chloride) 270 mls @ 135 mls/hr IVPB ASDIR PRN PRN Reason: FOR SERUM K+ 2.5 - 3.5 Potassium Chloride 40 meq/ (Device) 100 mls @ 50 mls/hr IVPB ASDIR PRN PRN Reason: FOR SERUM K+ 2.5 - 3.5 Magnesium Sulfate 1 gm/ Sodium (Chloride) 102 mls @ 102 mls/hr IV PRN PRN PRN Reason: MAG LEVEL 1.4 - 2.0 Last Admin: 09/15/17 06:01 Dose: 102 mls Magnesium Sulfate 2 gm/ Device 100 mls @ 100 mls/hr IVPB ASDIR PRN PRN Reason: MAGNESIUM < 1.4 Potassium Phosphate 9 mmol/ (Sodium Chloride) 103 mls @ 25.75 mls/hr IVPB ASDIR PRN PRN Reason: Phosphate 1.0-1.8 Potassium Phosphate 12 mmol/ (Sodium Chloride) 254 mls @ 63.5 mls/hr IV ASDIR PRN PRN Reason: Serum phosphate 0.5-0.9 Potassium Phosphate 15 mmol/ (Sodium Chloride) 255 mls @ 63.75 mls/hr IV ASDIR PRN PRN Reason: Serum Phos < 0.5 Levothyroxine Sodium (Synthroid) 100 mcg PO 0600 [facility] Last Admin: 09/15/17 05:14 Dose: 100 mcg Magnesium Oxide (Magnesium Oxide) 400 mg PO BIDPRN PRN PRN Reason: FOR SERUM MAG 1.4 - 2.0 Magnesium Oxide (Magnesium Oxide) 800 mg PO PRN PRN PRN Reason: FOR SERUM MAG < 1.4 Methylprednisolone Sodium Succinate (Solu-Medrol) 40 mg IVP DAILY [facility] Last Admin: 09/14/17 09:02 Dose: 40 mg Miscellaneous Medication (Phos-Nak) 1 pkt PO TIDPRN PRN PRN Reason: FOR PHOS LEVEL 1.0 - 1.8 Miscellaneous Medication (Phos-Nak) 2 pkt PO TIDPRN PRN PRN Reason: FOR PHOS LEVEL 0.5 - 1.0 Miscellaneous Medication (Pharmacy To Dose) 1 each IVPB PRN PRN PRN Reason: . Nitroglycerin (Nitrostat) 0.4 mg SL Q5MIN PRN PRN Reason: Chest Pain Ccu Electrolyte (Replacement Protocol) 0 each FS PRN PRN PRN Reason: FOR ELECTROLYTE REPLACEMENT Pantoprazole Sodium (Protonix) 40 mg PO DAILY [facility] Last Admin: 09/14/17 09:07 Dose: 40 mg Paroxetine HCl (Paxil) 40 mg PO DAILY [facility] Last Admin: 09/14/17 09:02 Dose: 40 mg Potassium Chloride (K-Dur) 40 meq PO ASDIR PRN PRN Reason: FOR SERUM K+ 2.5 - 3.5 Potassium Chloride (Klor-Con) 40 meq PER TUBE ASDIR PRN PRN Reason: FOR SERUM K+ 2.5-3.5 Sodium Chloride (Flush - Normal Saline) 10 ml IVF PRN PRN PRN Reason: Saline Flush Sodium Chloride (Flush - Normal Saline) 10 ml IVF BID [facility] Last Admin: 09/14/17 21:53 Dose: 10 ml
[2017-09-15] MEDS: Gabapentin 300 MG CAP PO SCH ×3 (09:14→20:03)
[2017-09-15] MEDS: Aspirin 81 mg Enteric Coated Tablet PO SCH (09:16)
[2017-09-15] MEDS: PARoxetine 20 MG TAB PO SCH (09:16)
[2017-09-15] MEDS: Atorvastatin Calcium 20 MG TAB PO SCH (09:17)
[2017-09-15] MEDS: FLUoxetine HCl 20 MG CAP PO SCH (09:17)
[2017-09-15] MEDS: Clopidogrel Bisulfate 75 MG TAB PO SCH (09:17)
[2017-09-15] MEDS: Azithromycin 200 MG/5 ML Oral Suspension PO SCH (09:18)
[2017-09-15] MEDS: Potassium Chloride 20 MEQ TAB PO SCH (09:18)
[2017-09-15] MEDS: Docusate 100 MG CAP PO SCH ×2 (09:18→20:04)
[2017-09-15] MEDS ORDERED: Spironolactone 25 MG TAB PO SCH ×2 (13:00→13:15)
[2017-09-15] MEDS ORDERED: Lisinopril 5 MG TAB PO SCH (13:00)
[2017-09-15] MEDS: Lisinopril 5 MG TAB PO SCH ×4 (13:36→20:03)
--- NOTE | 2017-09-15 19:22 | PRG ---
DATE OF SERVICE: 09/15/2017 SERVICE: Pulmonary Medicine. INTERVAL HISTORY: The patient is doing fine from a respiratory standpoint. She is breathing comfortably. She is on BiPAP with minimal weaning her pressures down a little bit at that time. I spent a considerable amount of time doing this at bedside throughout the day. PHYSICAL EXAMINATION: VITAL SIGNS: Afebrile with T-max of 100.2, pulse 81, blood pressure 109/87, respirations 33, saturation 99% on 40% FIO2 and a PEEP of 7. HEENT: Normocephalic, atraumatic. Sclerae are white, conjunctivae pink. Oral mucosa is moist without lesions. LUNGS: Decent air entry. There is no prolonged expiratory phase. Crackles are present HEART: Normal rate and regular. ABDOMEN: Soft, nontender and nondistended. Bowel sounds are positive. MUSCULOSKELETAL: No cyanosis or clubbing. There is no pitting in the bilateral lower extremities. NEUROLOGIC: Grossly nonfocal. LABORATORY DATA: WBC 12.8, hemoglobin 11.0, platelets 110,000. Basic metabolic profile is unremarkable. Calcium and magnesium fall within normal limits. Troponin is down trending to 4.311. Urinalysis drug screen is unremarkable. Blood cultures x2 are negative. ASSESSMENT: 1. Acute hypoxic respiratory failure, improving. 2. Acute on chronic systolic heart failure. 3. Community-acquired pneumonia, possible. 4. Opiate abuse. 5. Chronic hepatitis C. PLAN: We will continue to diurese the patient until she returns to euvolemia. I will wean BiPAP throughout the day. Hopefully, we will be able to give her first break when she is down a touch more on her oxygen requirements. Pulmonary or Critical Care will continue to follow along for the time being. Critical care time: 30 minutes. MTDD
[2017-09-16] MEDS: Piperacillin/Tazobactam 3.375 GM in Sodium Chloride 0.9% 100 ML IVPB SCH ×4 (03:38→22:32)
[2017-09-16 04:27] LABS: #Lymphocytes 0.6 thou/uL (1.20-3.40); #Monocytes 0.3 thou/uL (0.11-0.59); #Neutrophils 7.1 thou/uL (1.40-6.50); %Basophils 0.4 % (0.0-1.0); %Eosinophils 0.2 % (0.0-10.0); %Lymphocytes 7.5 % (21.0-51.0); Hemoglobin 10.3 g/dL (12.0-16.0); Mean Corpuscular HGB CONC 33.1 g/dL (32.0-36.0); Mean Corpuscular Hemoglobin 31.4 pg (27.0-31.0); Mean Corpuscular Volume 94.9 fl (81.0-99.0); Mean Platelet Volume 8.8 fL (7.4-10.4); Platelet Count 107 thou/uL (130-400); RBC Distribution Width 12.9 % (11.5-14.5); Red Blood Cell (RBC) Count 3.27 mill/uL (4.20-5.40); White Blood Cell (WBC) Count 8.1 thou/uL (4.8-10.8)
[2017-09-16 04:41] LABS: Anion Gap 9 mmol/L (10-20); BUN (Urea Nitrogen) 20 mg/dL (7.0-18.7); Calc. Creatinine Clearance 138 mL/min (70-130); Calcium 9.1 mg/dL (7.8-10.44); Carbon Dioxide 35 mmol/L (22-29); Chloride 99 mmol/L (98-107); Estimated GFR-MDRD Greater than 90; Glucose 123 mg/dL (70-105); Magnesium 2.1 mg/dL (1.6-2.6); Potassium 3.8 mmol/L (3.5-5.1); Sodium 139 mmol/L (136-145)
[2017-09-16] MEDS: Vancomycin HCl 1.25 GM in Sodium Chloride 0.9% 250 ML 250 ML IVPB SCH (06:19)
[2017-09-16] MEDS: Furosemide 40 MG/4 ML VIAL SLOW IVP SCH ×2 (06:20→16:01)
[2017-09-16] MEDS: Levothyroxine Sodium 100 MCG TAB PO SCH (06:30)
[2017-09-16] MEDS: Enoxaparin Sodium 40 MG/0.4 ML SYRINGE SC SCH (09:31)
[2017-09-16] MEDS: Gabapentin 300 MG CAP PO SCH ×3 (09:33→20:56)
[2017-09-16] MEDS: Aspirin 81 mg Enteric Coated Tablet PO SCH (09:33)
[2017-09-16] MEDS: PARoxetine 20 MG TAB PO SCH (09:33)
[2017-09-16] MEDS: Clopidogrel Bisulfate 75 MG TAB PO SCH (09:33)
[2017-09-16] MEDS: Lisinopril 5 MG TAB PO SCH ×2 (09:33→21:00)
[2017-09-16] MEDS: Atorvastatin Calcium 20 MG TAB PO SCH (09:34)
--- NOTE | 2017-09-16 09:34 | PDOC.PN ---
- Subjective Encounter Start Date: 09/16/17 Encounter Start Time: 09:31 Patient seen and examined after being admitted for acute pulmonary edema leading to acute hypoxemic respiratory failure. She has responded to treatment and is being weaned off BiPAP. Diuresing well too. She has no complaints today and had no acute overnight events. Pulmonary and cardiology on board. - Objective Resuscitation Status: Resuscitation Status FULL:Full Resuscitation MAR Reviewed: Yes Vital Signs & Weight: Vital Signs (12 hours) Temp Pulse 09/16/17 06:38 63 09/16/17 04:00 98.5 F 09/16/17 02:38 84 09/16/17 00:00 98.3 F 09/15/17 22:30 65 Weight Admit Weight 195 lb 15.855 oz Weight 182 lb 12.211 oz Most Recent Monitor Data Heart Rate from ECG 61 NIBP 97/56 NIBP BP-Mean 75 Respiration from ECG 28 SpO2 99 I&O: 09/15/17 09/16/17 09/17/17 06:59 06:59 06:59 Intake Total 2227 1407 Output Total 4005 2243 Balance -1118 -106 Result Diagrams: 09/16/17 03:34 09/16/17 03:34 Phys Exam - Physical Examination Constitutional: NAD HEENT: PERRLA, moist MMs, sclera anicteric Neck: no JVD, supple, full ROM Reduced breath sounds with mild rales b/l lung ben[place]z Cardiovascular: RRR, no significant murmur, no rub Gastrointestinal: soft, non-tender, no distention, positive bowel sounds Musculoskeletal: no edema, pulses present Neurological: non-focal, moves all 4 limbs Psychiatric: normal affect, A&O x 3 Skin: no rash, normal turgor Dx/Plan (1) Acute hypoxemic respiratory failure Code(s): J96.01 - ACUTE RESPIRATORY FAILURE WITH HYPOXIA Status: Acute Comment: Stable. Being weaned off BiPAP. On NC this am and saturating well. (2) NSTEMI (non-ST elevated myocardial infarction) Code(s): I21.4 - NON-ST ELEVATION (NSTEMI) MYOCARDIAL INFARCTION Status: Acute Comment: Has mutlivessel disease and is s/p CABG about 6 months ago. Cardiology reviewed- no further intervention. Recommend medical management. (3) Acute pulmonary edema Code(s): J81.0 - ACUTE PULMONARY EDEMA Status: Acute Comment: Resolving. Patient is diuresing well. (4) CAD (coronary artery disease) Code(s): I25.10 - ATHSCL HEART DISEASE OF [place] CORONARY ARTERY W/O ANG PCTRS Status: Acute Qualifiers: Coronary Disease-Associated Artery/Lesion type: unspecified vessel or lesion type [place] vs. transplanted heart: [place] heart Associated angina: without angina Qualified Code(s): I25.10 - Atherosclerotic heart disease of [place] coronary artery without angina pectoris Comment: Stable. Chest pain free. (5) Hypothyroidism Code(s): E03.9 - HYPOTHYROIDISM, UNSPECIFIED Status: Chronic Qualifiers: Hypothyroidism type: unspecified Qualified Code(s): E03.9 - Hypothyroidism , unspecified (6) Acute on chronic systolic CHF (congestive heart failure) Code(s): I50.23 - ACUTE ON CHRONIC SYSTOLIC (CONGESTIVE) HEART FAILURE Status : Acute Comment: Diuresing well. > 10 liter output since admission. Continue furosemide. (7) Thrombocytopenia Code(s): D69.6 - THROMBOCYTOPENIA, UNSPECIFIED Status: Acute Comment: Likely 2/2 enoxaparin. Will discontinue therapeutic Lovenox (8) Septic shock Code(s): A41.9 - SEPSIS, UNSPECIFIED ORGANISM; R65.21 - SEVERE SEPSIS WITH SEPTIC SHOCK Status: Resolved Comment: Resolved. WBC, lactate trending down. Continue broad spectrum antibiotics, pressors. f/u cultures. - Plan cont current plan of care, continue antibiotics Wean off BiPAP Continue broad spectrum antibiotics and f/u blood cultures. Discontinue Vancomycin. Discontinue therapeutic Lovenox. Continue Furosemide. BUN trending up- discuss with cardiology regarding reducing furosemide dose to prevent contraction alkalosis. Review of Systems - Medications/Allergies Allergies/Adverse Reactions: Allergies Allergy/AdvReac Type Severity Reaction Status Date / Time codeine Allergy Intermediate HIVES/SWELL Verified 08/16/16 13:48 ING Medications: Current Medications Acetaminophen (Tylenol) 650 mg PO Q4H PRN PRN Reason: Headache/Fever or Pain Last Admin: 09/13/17 21:29 Dose: 650 mg Albuterol Sulfate (Ventolin) 2.5 mg NEB [id number] PRN PRN Reason: Wheezing Albuterol/Ipratropium (Duoneb) 3 ml NEB [id number] PRN PRN Reason: SOB &/or Wheezing Aspirin (Ecotrin) 81 mg PO DAILY [facility] Last Admin: 09/15/17 09:16 Dose: 81 mg Atorvastatin Calcium (Lipitor) 40 mg PO DAILY [facility] Azithromycin (Zithromax) 500 mg PO DAILY [facility] Stop: 09/18/17 09:01 Last Admin: 09/15/17 09:18 Dose: 500 mg Buprenorphine/Naloxone (Suboxone) 1 film SL DAILY [facility] Clopidogrel Bisulfate (Plavix) 75 mg PO DAILY [facility] Last Admin: 09/15/17 09:17 Dose: 75 mg Docusate Sodium (Colace) 100 mg PO BID [facility] Last Admin: 09/15/17 20:04 Dose: 100 mg Enoxaparin Sodium (Lovenox) 40 mg SC 0900 [facility] Fluoxetine HCl (Prozac) 40 mg PO DAILY [facility] Last Admin: 09/15/17 09:17 Dose: 40 mg Furosemide (Lasix) 40 mg SLOW IVP 0600,1400 [facility] Last Admin: 09/16/17 06:20 Dose: 40 mg Gabapentin (Neurontin) 600 mg PO TID [facility] Last Admin: 09/15/17 20:03 Dose: 600 mg Guaifenesin/Dextromethorphan (Robitussin Dm) 15 ml PO Q4H PRN PRN Reason: Cough Norepinephrine Bitartrate (Levophed) 250 mls @ 0 mls/hr IVPB INF [facility]; Titrate PRN Reason: Protocol Last Admin: 09/15/17 05:01 Dose: 250 mls Piperacillin Sod/Tazobactam (Sod 3.375 gm/ Sodium Chloride) 100 mls @ 200 mls/ hr IVPB 0400,1000,1600,2200 [facility] Last Admin: 09/16/17 03:38 Dose: 100 mls Vancomycin HCl 1.25 gm/ Sodium (Chloride) 250 mls @ 166.67 mls/hr IVPB 0500, 1700 [facility] Last Admin: 09/16/17 06:19 Dose: 250 mls Potassium Chloride 40 meq/ (Sodium Chloride) 270 mls @ 135 mls/hr IVPB ASDIR PRN PRN Reason: FOR SERUM K+ 2.5 - 3.5 Potassium Chloride 40 meq/ (Device) 100 mls @ 50 mls/hr IVPB ASDIR PRN PRN Reason: FOR SERUM K+ 2.5 - 3.5 Magnesium Sulfate 1 gm/ Sodium (Chloride) 102 mls @ 102 mls/hr IV PRN PRN PRN Reason: MAG LEVEL 1.4 - 2.0 Last Admin: 09/15/17 06:01 Dose: 102 mls Magnesium Sulfate 2 gm/ Device 100 mls @ 100 mls/hr IVPB ASDIR PRN PRN Reason: MAGNESIUM < 1.4 Potassium Phosphate 9 mmol/ (Sodium Chloride) 103 mls @ 25.75 mls/hr IVPB ASDIR PRN PRN Reason: Phosphate 1.0-1.8 Potassium Phosphate 12 mmol/ (Sodium Chloride) 254 mls @ 63.5 mls/hr IV ASDIR PRN PRN Reason: Serum phosphate 0.5-0.9 Potassium Phosphate 15 mmol/ (Sodium Chloride) 255 mls @ 63.75 mls/hr IV ASDIR PRN PRN Reason: Serum Phos < 0.5 Levothyroxine Sodium (Synthroid) 100 mcg PO 0600 [facility] Last Admin: 09/16/17 06:30 Dose: 100 mcg Lisinopril (Zestril) 5 mg PO BID [facility] Last Admin: 09/15/17 20:03 Dose: 5 mg Magnesium Oxide (Magnesium Oxide) 400 mg PO BIDPRN PRN PRN Reason: FOR SERUM MAG 1.4 - 2.0 Magnesium Oxide (Magnesium Oxide) 800 mg PO PRN PRN PRN Reason: FOR SERUM MAG < 1.4 Methylprednisolone Sodium Succinate (Solu-Medrol) 40 mg IVP DAILY [facility] Last Admin: 09/15/17 09:17 Dose: 40 mg Miscellaneous Medication (Phos-Nak) 1 pkt PO TIDPRN PRN PRN Reason: FOR PHOS LEVEL 1.0 - 1.8 Miscellaneous Medication (Phos-Nak) 2 pkt PO TIDPRN PRN PRN Reason: FOR PHOS LEVEL 0.5 - 1.0 Miscellaneous Medication (Pharmacy To Dose) 1 each IVPB PRN PRN PRN Reason: . Nitroglycerin (Nitrostat) 0.4 mg SL Q5MIN PRN PRN Reason: Chest Pain Ccu Electrolyte (Replacement Protocol) 0 each FS PRN PRN PRN Reason: FOR ELECTROLYTE REPLACEMENT Pantoprazole Sodium (Protonix) 40 mg PO DAILY [facility] Last Admin: 09/15/17 09:17 Dose: 40 mg Paroxetine HCl (Paxil) 40 mg PO DAILY [facility] Last Admin: 09/15/17 09:16 Dose: 40 mg Potassium Chloride (K-Dur) 40 meq PO ASDIR PRN PRN Reason: FOR SERUM K+ 2.5 - 3.5 Potassium Chloride (Klor-Con) 40 meq PER TUBE ASDIR PRN PRN Reason: FOR SERUM K+ 2.5-3.5 Sodium Chloride (Flush - Normal Saline) 10 ml IVF PRN PRN PRN Reason: Saline Flush Sodium Chloride (Flush - Normal Saline) 10 ml IVF BID [facility] Last Admin: 09/15/17 20:04 Dose: 10 ml Spironolactone (Aldactone) 25 mg PO QA-[facility]
[2017-09-16] MEDS: Azithromycin 200 MG/5 ML Oral Suspension PO SCH (09:35)
[2017-09-16] MEDS: Spironolactone 25 MG TAB PO SCH (09:38)
[2017-09-16] MEDS: Docusate 100 MG CAP PO SCH ×2 (09:39→20:57)
[2017-09-16] MEDS: FLUoxetine HCl 20 MG CAP PO SCH (09:39)
--- NOTE | 2017-09-16 10:03 | PRG ---
DATE OF SERVICE: 09/16/2017 Ms. Meek feels she is about the same. No real difference in her breathing. No chest pain. OBJECTIVE: VITAL SIGNS: Blood pressure 121/72, pulse 62, sinus. LUNGS: Clear. CARDIAC: Normal S1 and S2. ABDOMEN: Soft, nontender. EXTREMITIES: Still moderate edema. ASSESSMENT: 1. Congestive heart failure, systolic, chronic. 2. Previous defibrillator. 3. Coronary artery disease. PLAN: 1. Continue lisinopril. 2. She is still on steroids and antibiotics. 3. Continue spironolactone. Prognosis remains guarded.
[2017-09-16] MEDS: Buprenorphine 8mg/Naloxone 2mg per 1 FILM SL SCH (10:36)
--- NOTE | 2017-09-16 17:26 | PRG ---
DATE OF SERVICE: 09/16/2017 SERVICE: Pulmonary Medicine. INTERVAL HISTORY: The patient is doing fine from a respiratory standpoint. She denies any current c hest pain, nausea or vomiting. She is tolerating a break from the CPAP. This is first break that andrade persaud has had in 3 days. Otherwise, there has been no interval change to her condition. She got another dose of Lasix this morning and is diuresing very nicely once again. PHYSICAL EXAMINATION: VITAL SIGNS: Afebrile, pulse 69, blood pressure 93/56, respirations 26, saturation 97% on 3 liters n laure cannula. GENERAL: The patient is awake, alert, no apparent distress. LUNGS: Excellent air entry. No prolonged expiratory phase, wheezing, rhonchi or crackles. HEART: Normal rate, regular. ABDOMEN: Soft, nontender, nondistended. Bowel sounds are positive. MUSCULOSKELETAL: No cyanosis or clubbing. There is no pitting in the bilateral lower extremities. NEUROLOGIC: Grossly nonfocal. LABORATORY DATA: WBC 8.1, hemoglobin 10.3, platelets 107,000. Basic metabolic profile is essentiall y unremarkable with normal magnesium. Bicarbonate has jumped ever so slightly to 35. Blood cultures x2 are unremarkable. ASSESSMENT: 1. Acute hypoxic respiratory failure, improving. 2. Acute on chronic systolic heart failure. 3. Community-acquired pneumonia, possible. 4. Opiate abuse. 5. Chronic hepatitis C. PLAN: I will give the patient Lasix holiday in the morning, but she will likely require another dose on Thursday. We will work on mobilizing her throughout the day. Luke catheter will be removed. Fro m my perspective, she remains off of BiPAP all day, she can be transitioned to the telemetry unit.
[2017-09-16] MEDS: Acetaminophen 325 MG TAB PO PRN (20:56)
[2017-09-17] MEDS: Piperacillin/Tazobactam 3.375 GM in Sodium Chloride 0.9% 100 ML IVPB SCH ×4 (03:53→21:51)
[2017-09-17 05:43] LABS: #Eosinphils 0.2 thou/uL (0.0-0.7); #Lymphocytes 1.1 thou/uL (1.20-3.40); #Monocytes 0.4 thou/uL (0.11-0.59); #Neutrophils 6.8 thou/uL (1.40-6.50); %Basophils 0.5 % (0.0-1.0); %Eosinophils 2.5 % (0.0-10.0); %Lymphocytes 12.8 % (21.0-51.0); %Monocytes 4.9 % (0.0-10.0); %Neutrophils 79.2 % (42.0-75.0); Hemoglobin 10.7 g/dL (12.0-16.0); Mean Corpuscular HGB CONC 33.5 g/dL (32.0-36.0); Mean Corpuscular Hemoglobin 31.4 pg (27.0-31.0); Mean Corpuscular Volume 93.9 fl (81.0-99.0); Mean Platelet Volume 8.4 fL (7.4-10.4); Platelet Count 121 thou/uL (130-400); White Blood Cell (WBC) Count 8.6 thou/uL (4.8-10.8)
[2017-09-17 05:50] LABS: Anion Gap 8 mmol/L (10-20); BUN (Urea Nitrogen) 23 mg/dL (7.0-18.7); Calc. Creatinine Clearance 129 mL/min (70-130); Calcium 9.1 mg/dL (7.8-10.44); Carbon Dioxide 35 mmol/L (22-29); Chloride 98 mmol/L (98-107); Estimated GFR-MDRD Greater than 90; Glucose 106 mg/dL (70-105); Magnesium 1.8 mg/dL (1.6-2.6); Sodium 138 mmol/L (136-145)
[2017-09-17 05:58] LABS: Potassium 2.9 mmol/L (3.5-5.1)
[2017-09-17] MEDS: Levothyroxine Sodium 100 MCG TAB PO SCH (06:15)
[2017-09-17] MEDS: Gabapentin 300 MG CAP PO SCH ×3 (08:12→21:50)
[2017-09-17] MEDS: Furosemide 40 MG TAB PO SCH (08:12)
[2017-09-17] MEDS: Potassium Chloride 20 MEQ TAB PO SCH ×2 (08:12→11:44)
[2017-09-17] MEDS: Aspirin 81 mg Enteric Coated Tablet PO SCH (08:12)
[2017-09-17] MEDS: Clopidogrel Bisulfate 75 MG TAB PO SCH (08:12)
[2017-09-17] MEDS: PARoxetine 20 MG TAB PO SCH (08:12)
[2017-09-17] MEDS: Docusate 100 MG CAP PO SCH ×2 (08:13→21:51)
[2017-09-17] MEDS: Spironolactone 25 MG TAB PO SCH (08:13)
[2017-09-17] MEDS: Enoxaparin Sodium 40 MG/0.4 ML SYRINGE SC SCH (08:13)
[2017-09-17] MEDS: Atorvastatin Calcium 20 MG TAB PO SCH (08:13)
[2017-09-17] MEDS: Lisinopril 5 MG TAB PO SCH ×3 (08:14→08:20)
[2017-09-17] MEDS ORDERED: PAROXETINE HCL 40 MG PO SCH (09:00)
[2017-09-17] MEDS: Azithromycin 200 MG/5 ML Oral Suspension PO SCH (09:29)
[2017-09-17] MEDS: Buprenorphine 8mg/Naloxone 2mg per 1 FILM SL SCH (09:29)
[2017-09-17] MEDS: Valsartan 80 MG TAB PO SCH ×2 (09:31→21:51)
[2017-09-17] MEDS ORDERED: Potassium Chloride 10 MEQ in Premix Bag 1 BAG IVPB SCH ×3 (09:45)
[2017-09-17] MEDS ORDERED: Potassium Chloride 20 MEQ TAB PO SCH ×2 (09:45→16:45)
--- NOTE | 2017-09-17 11:16 | RAD ---
AP VIEW CHEST: Date: 09/17/17 INDICATION: Daily CCU examination, on ventilator. COMPARISON: Prior exam dated 09/14/17. FINDINGS: Since the comparison examination, the cardiomegaly, pulmonary vascular congestion, and widespread air space opacities persist. The extent of the air space opacities appear slightly improved, possibly re flecting improvement in the air space edema. AICD and post CABG change similar. Right subclavian cent ral venous catheter is unchanged. No pneumothorax is evident. The AICD is unchanged. IMPRESSION: Improving pulmonary edema. No pneumothorax. POS: [facility]
[2017-09-17 17:04] LABS: Anion Gap 11 mmol/L (10-20); BUN (Urea Nitrogen) 17 mg/dL (7.0-18.7); Calc. Creatinine Clearance 127 mL/min (70-130); Calcium 8.6 mg/dL (7.8-10.44); Carbon Dioxide 34 mmol/L (22-29); Chloride 98 mmol/L (98-107); Estimated GFR-MDRD 89; Glucose 168 mg/dL (70-105); Potassium 3.5 mmol/L (3.5-5.1); Sodium 139 mmol/L (136-145)
--- NOTE | 2017-09-17 18:53 | PRG ---
DATE OF SERVICE: 09/17/2017 SERVICE: Pulmonary Medicine. INTERVAL HISTORY: The patient is doing outstanding from a respiratory standpoint. She is on 2 liters nasal cannula. Her sats are 94%. She is able to tolerate coming off of it and come back. She gets a little bit winded with exertion, but she is significantly better than she was previously. PHYSICAL EXAMINATION: VITAL SIGNS: Afebrile, pulse 61, blood pressure 95/54, respirations 16, saturation 92% on 2 liters nasal cannula. GENERAL: The patient is awake, alert, no apparent distress. LUNGS: Excellent air entry. There is no prolonged expiratory phase. Crackles are present. Rhonchi are also there, but cleared with cough. No wheezing. HEART: Normal rate, regular. ABDOMEN: Soft, nontender, nondistended. Bowel sounds are positive. MUSCULOSKELETAL: No cyanosis or clubbing. No pitting in the bilateral lower extremities. NEUROLOGIC: Grossly nonfocal. LABORATORY DATA: WBC 8.6, hemoglobin 10.7, platelets 121,000. Potassium 2.9. Bicarbonate 35, anion gap 8, BUN 23. Basic metabolic profile is otherwise unremarkable. Magnesium 1.8. IMAGING DATA: Chest x-ray demonstrates significantly improved pulmonary edema. There is still a right-sided subclavian central venous catheter in good position. Sternotomy wires once again noted. There is massive cardiomegaly, but there is much less pulmonary vascular congestion. ASSESSMENT: 1. Acute hypoxic respiratory failure, improving. 2. Acute on chronic systolic heart failure. 3. Community-acquired pneumonia, possible. 4. Opiate abuse. 5. Chronic hepatitis C. DISCUSSION AND PLAN: We will continue to diurese the patient gently to euvolemia. We will reintroduce once daily Lasix. Potassium will be replaced as well as magnesium. I will continue to follow for the time being, but when she is off oxygen, I will disappear. She may benefit from an outpatient evaluation for obstructive sleep apnea. I asked her to set up an appointment with me in the outpatient setting if she is interested in pursuing a diagnosis. We discussed the advantages of treating sleep apnea if it exists. OLE
--- NOTE | 2017-09-17 22:00 | PDOC.PN ---
- Subjective Encounter Start Date: 09/17/17 Encounter Start Time: 09:00 Subjective: pt up in bed no complains - Objective Resuscitation Status: Resuscitation Status FULL:Full Resuscitation Vital Signs & Weight: Vital Signs (12 hours) Temp Pulse Resp BP Pulse Ox 09/17/17 19:40 97.3 F L 64 18 91/65 91 L 09/17/17 16:08 98.0 F 61 18 93/56 L 93 L 09/17/17 11:48 98.2 F 61 16 95/54 L 92 L Weight Admit Weight 195 lb 15.855 oz Weight 180 lb 6.4 oz Most Recent Monitor Data Heart Rate from ECG 67 NIBP 102/53 NIBP BP-Mean 64 Respiration from ECG 20 SpO2 91 I&O: 09/16/17 09/17/17 09/18/17 06:59 06:59 06:59 Intake Total 1407 1710 850 Output Total 2243 2025 700 Balance -836 -315 150 Result Diagrams: 09/18/17 04:59 09/18/17 04:59 Phys Exam - Physical Examination HEENT: PERRLA, moist MMs, sclera anicteric, TM's clear, oral pharynx no lesions , 2+ tonsils Neck: no nodes, no JVD, supple, full ROM mild exp wheezing to bases Cardiovascular: RRR, no significant murmur, no rub, gallop, irregular Gastrointestinal: soft, non-tender, no distention, positive bowel sounds Musculoskeletal: no edema, pulses present, edema present Dx/Plan - Plan * (1) Acute hypoxemic respiratory failure (2) NSTEMI (non-ST elevated myocardial infarction) (3) Acute pulmonary edema (4) CAD (coronary artery disease) (5) Hypothyroidism (6) Acute on chronic systolic CHF (congestive heart failure) . (7) Thrombocytopenia (8) Septic shock plan: Will change abx from zosyn to levaquin. Pt has had 6 days of iv. on oral lasix. Pt is still on oxygen and desats when she ambulates. Pt feels she is doing well. Review of Systems - Review of Systems Eyes: negative: Pain, Vision Change, Conjunctivae Inflammation, Eyelid Inflammation, Redness, Other ENT: negative: Ear Pain, Ear Discharge, Nose Pain, Nose Discharge, Nose Congestion, Mouth Pain, Mouth Swelling, Throat Pain, Throat Swelling, Other Respiratory: Shortness of Breath Cardiovascular: negative: chest pain, palpitations, orthopnea, paroxysmal nocturnal dyspnea, edema, light headedness, other Gastrointestinal: negative: Nausea, Vomiting, Abdominal Pain, Diarrhea, Constipation, Melena, Hematochezia, Other Genitourinary: negative: Dysuria, Frequency, Incontinence, Hematuria, Retention , Other Musculoskeletal: negative: Neck Pain, Shoulder Pain, Arm Pain, Back Pain, Hand Pain, Leg Pain, Foot Pain, Other - Medications/Allergies Allergies/Adverse Reactions: Allergies Allergy/AdvReac Type Severity Reaction Status Date / Time codeine Allergy Intermediate HIVES/SWELL Verified 08/16/16 13:48 ING Medications: Current Medications Acetaminophen (Tylenol) 650 mg PO Q4H PRN PRN Reason: Headache/Fever or Pain Last Admin: 09/16/17 20:56 Dose: 650 mg Albuterol Sulfate (Ventolin) 2.5 mg NEB [id number] PRN PRN Reason: Wheezing Albuterol/Ipratropium (Duoneb) 3 ml NEB [id number] PRN PRN Reason: SOB &/or Wheezing Last Admin: 09/18/17 03:39 Dose: 3 ml Amoxicillin/Clavulanate Potassium (Augmentin) 875 mg PO Q12HR [facility] Stop: 09/21/17 23:59 Last Admin: 09/18/17 09:31 Dose: 875 mg Aspirin (Ecotrin) 81 mg PO DAILY [facility] Last Admin: 09/18/17 09:30 Dose: 81 mg Atorvastatin Calcium (Lipitor) 40 mg PO DAILY [facility] Last Admin: 09/18/17 09:26 Dose: 40 mg Buprenorphine/Naloxone (Suboxone) 1 film SL DAILY [facility] Last Admin: 09/18/17 09:32 Dose: 1 film Clopidogrel Bisulfate (Plavix) 75 mg PO DAILY [facility] Last Admin: 09/18/17 09:27 Dose: 75 mg Docusate Sodium (Colace) 100 mg PO BID [facility] Last Admin: 09/18/17 09:35 Dose: Not Given Enoxaparin Sodium (Lovenox) 40 mg SC 0900 [facility] Last Admin: 09/18/17 09:33 Dose: 40 mg Furosemide (Lasix) 40 mg SLOW IVP 0600,1400 [facility] Gabapentin (Neurontin) 600 mg PO TID [facility] Last Admin: 09/18/17 09:30 Dose: 600 mg Levothyroxine Sodium (Synthroid) 100 mcg PO 0600 [facility] Last Admin: 09/18/17 05:52 Dose: 100 mcg Nitroglycerin (Nitrostat) 0.4 mg SL Q5MIN PRN PRN Reason: Chest Pain Ccu Electrolyte (Replacement Protocol) 0 each FS PRN PRN PRN Reason: FOR ELECTROLYTE REPLACEMENT Pantoprazole Sodium (Protonix) 40 mg PO DAILY [facility] Last Admin: 09/18/17 09:31 Dose: 40 mg Paroxetine HCl (Paxil) 40 mg PO DAILY [facility] Last Admin: 09/18/17 09:29 Dose: 40 mg Sodium Chloride (Flush - Normal Saline) 10 ml IVF PRN PRN PRN Reason: Saline Flush Sodium Chloride (Flush - Normal Saline) 10 ml IVF BID [facility] Last Admin: 09/18/17 09:47 Dose: Not Given Spironolactone (Aldactone) 25 mg PO QAM-WM [facility] Last Admin: 09/18/17 09:31 Dose: 25 mg Valsartan (Diovan) 40 mg PO BID [facility] Last Admin: 09/18/17 09:27 Dose: 40 mg
[2017-09-18] MEDS: Piperacillin/Tazobactam 3.375 GM in Sodium Chloride 0.9% 100 ML IVPB SCH (04:31)
[2017-09-18 05:20] LABS: #Eosinphils 0.4 thou/uL (0.0-0.7); #Lymphocytes 1.1 thou/uL (1.20-3.40); #Monocytes 0.4 thou/uL (0.11-0.59); #Neutrophils 5.3 thou/uL (1.40-6.50); %Basophils 0.1 % (0.0-1.0); %Eosinophils 5.6 % (0.0-10.0); %Lymphocytes 14.8 % (21.0-51.0); %Monocytes 5.6 % (0.0-10.0); Hemoglobin 10.8 g/dL (12.0-16.0); Mean Corpuscular HGB CONC 32.8 g/dL (32.0-36.0); Mean Corpuscular Hemoglobin 31.5 pg (27.0-31.0); Mean Platelet Volume 8.4 fL (7.4-10.4); Platelet Count 138 thou/uL (130-400); Red Blood Cell (RBC) Count 3.43 mill/uL (4.20-5.40); White Blood Cell (WBC) Count 7.2 thou/uL (4.8-10.8)
[2017-09-18 05:37] LABS: Anion Gap 9 mmol/L (10-20); BUN (Urea Nitrogen) 15 mg/dL (7.0-18.7); Calc. Creatinine Clearance 143 mL/min (70-130); Calcium 8.6 mg/dL (7.8-10.44); Carbon Dioxide 32 mmol/L (22-29); Chloride 102 mmol/L (98-107); Estimated GFR-MDRD Greater than 90; Glucose 101 mg/dL (70-105); Magnesium 1.6 mg/dL (1.6-2.6); Sodium 139 mmol/L (136-145)
[2017-09-18] MEDS: Levothyroxine Sodium 100 MCG TAB PO SCH (05:52)
[2017-09-18] MEDS ORDERED: Amoxicillin/Potassium Clav 875 MG TAB PO SCH (09:00)
[2017-09-18] MEDS: Furosemide 40 MG TAB PO SCH (09:26)
[2017-09-18] MEDS: Atorvastatin Calcium 20 MG TAB PO SCH (09:26)
[2017-09-18] MEDS: Clopidogrel Bisulfate 75 MG TAB PO SCH (09:27)
[2017-09-18] MEDS: Valsartan 80 MG TAB PO SCH ×2 (09:27→20:25)
[2017-09-18] MEDS: PARoxetine 20 MG TAB PO SCH (09:29)
[2017-09-18] MEDS: Aspirin 81 mg Enteric Coated Tablet PO SCH (09:30)
[2017-09-18] MEDS: Gabapentin 300 MG CAP PO SCH ×3 (09:30→20:26)
[2017-09-18] MEDS: Spironolactone 25 MG TAB PO SCH (09:31)
[2017-09-18] MEDS: Buprenorphine 8mg/Naloxone 2mg per 1 FILM SL SCH (09:32)
[2017-09-18] MEDS: Enoxaparin Sodium 40 MG/0.4 ML SYRINGE SC SCH (09:33)
[2017-09-18] MEDS: Docusate 100 MG CAP PO SCH ×2 (09:35→20:29)
[2017-09-18] MEDS ORDERED: Furosemide 40 MG/4 ML VIAL SLOW IVP SCH ×2 (10:00→10:39)
[2017-09-18] MEDS: Azithromycin 200 MG/5 ML Oral Suspension PO SCH (11:03)
--- NOTE | 2017-09-18 13:06 | PDOC.PN ---
- Subjective Encounter Start Date: 09/18/17 Encounter Start Time: 10:00 Subjective: pt up in bed no complains - Objective Resuscitation Status: Resuscitation Status FULL:Full Resuscitation Vital Signs & Weight: Vital Signs (12 hours) Temp Pulse Resp BP Pulse Ox 09/18/17 11:10 97.9 F 71 18 133/73 93 L 09/18/17 09:30 98.3 F 76 20 96 09/18/17 07:30 98.3 F 61 18 103/66 96 09/18/17 03:51 88 L 09/18/17 03:39 76 20 09/18/17 03:15 98.9 F 71 18 116/65 92 L Weight Admit Weight 195 lb 15.855 oz Weight 185 lb 8 oz Most Recent Monitor Data Heart Rate from ECG 67 NIBP 102/53 NIBP BP-Mean 64 Respiration from ECG 20 SpO2 91 I&O: 09/17/17 09/18/17 09/19/17 06:59 06:59 06:59 Intake Total 1710 1090 Output Total 2025 700 Balance -315 390 Result Diagrams: 09/18/17 04:59 09/18/17 04:59 Phys Exam - Physical Examination HEENT: PERRLA, moist MMs, sclera anicteric, TM's clear, oral pharynx no lesions , 2+ tonsils Neck: no nodes, no JVD, supple, full ROM Respiratory: wheezing present mild to lower lungs Cardiovascular: RRR, no significant murmur, no rub, gallop, irregular Gastrointestinal: soft, non-tender, no distention, positive bowel sounds Musculoskeletal: no edema, pulses present, edema present Dx/Plan - Plan (1) Acute hypoxemic respiratory failure (2) NSTEMI (non-ST elevated myocardial infarction) (3) Acute pulmonary edema (4) CAD (coronary artery disease) (5) Hypothyroidism (6) Acute on chronic systolic CHF (congestive heart failure) . (7) Thrombocytopenia (8) Septic shock plan: Will change abx from zosyn to levaquin. Pt has had 6 days of iv. on oral lasix. Pt is still on oxygen and desats when she ambulates. Pt feels she is doing well. 09/18 pt continues to improve clinically. will walk her to see if she need home oxygen. * . Review of Systems - Review of Systems Eyes: negative: Pain, Vision Change, Conjunctivae Inflammation, Eyelid Inflammation, Redness, Other Respiratory: Shortness of Breath Cardiovascular: negative: chest pain, palpitations, orthopnea, paroxysmal nocturnal dyspnea, edema, light headedness, other Gastrointestinal: negative: Nausea, Vomiting, Abdominal Pain, Diarrhea, Constipation, Melena, Hematochezia, Other Genitourinary: negative: Dysuria, Frequency, Incontinence, Hematuria, Retention , Other Musculoskeletal: negative: Neck Pain, Shoulder Pain, Arm Pain, Back Pain, Hand Pain, Leg Pain, Foot Pain, Other - Medications/Allergies Allergies/Adverse Reactions: Allergies Allergy/AdvReac Type Severity Reaction Status Date / Time codeine Allergy Intermediate HIVES/SWELL Verified 08/16/16 13:48 ING Medications: Current Medications Acetaminophen (Tylenol) 650 mg PO Q4H PRN PRN Reason: Headache/Fever or Pain Last Admin: 09/16/17 20:56 Dose: 650 mg Albuterol Sulfate (Ventolin) 2.5 mg NEB [id number] PRN PRN Reason: Wheezing Albuterol/Ipratropium (Duoneb) 3 ml NEB [id number] PRN PRN Reason: SOB &/or Wheezing Last Admin: 09/18/17 03:39 Dose: 3 ml Aspirin (Ecotrin) 81 mg PO DAILY [facility] Last Admin: 09/18/17 09:30 Dose: 81 mg Atorvastatin Calcium (Lipitor) 40 mg PO DAILY [facility] Last Admin: 09/18/17 09:26 Dose: 40 mg Buprenorphine/Naloxone (Suboxone) 1 film SL DAILY [facility] Last Admin: 09/18/17 09:32 Dose: 1 film Clopidogrel Bisulfate (Plavix) 75 mg PO DAILY [facility] Last Admin: 09/18/17 09:27 Dose: 75 mg Docusate Sodium (Colace) 100 mg PO BID [facility] Last Admin: 09/18/17 09:35 Dose: Not Given Enoxaparin Sodium (Lovenox) 40 mg SC 0900 [facility] Last Admin: 09/18/17 09:33 Dose: 40 mg Furosemide (Lasix) 40 mg SLOW IVP 0600,1400 [facility] Last Admin: 09/18/17 15:48 Dose: Not Given Gabapentin (Neurontin) 600 mg PO TID [facility] Last Admin: 09/18/17 14:43 Dose: 600 mg Levofloxacin (Levaquin) 500 mg PO 0600 [facility] Levothyroxine Sodium (Synthroid) 100 mcg PO 0600 [facility] Last Admin: 09/18/17 05:52 Dose: 100 mcg Nitroglycerin (Nitrostat) 0.4 mg SL Q5MIN PRN PRN Reason: Chest Pain Ccu Electrolyte (Replacement Protocol) 0 each FS PRN PRN PRN Reason: FOR ELECTROLYTE REPLACEMENT Pantoprazole Sodium (Protonix) 40 mg PO DAILY [facility] Last Admin: 09/18/17 09:31 Dose: 40 mg Paroxetine HCl (Paxil) 40 mg PO DAILY [facility] Last Admin: 09/18/17 09:29 Dose: 40 mg Sodium Chloride (Flush - Normal Saline) 10 ml IVF PRN PRN PRN Reason: Saline Flush Sodium Chloride (Flush - Normal Saline) 10 ml IVF BID [facility] Last Admin: 09/18/17 09:47 Dose: Not Given Spironolactone (Aldactone) 25 mg PO QAM-WM [facility] Last Admin: 09/18/17 09:31 Dose: 25 mg Valsartan (Diovan) 40 mg PO BID [facility]
[2017-09-18] MEDS ORDERED: Potassium Chloride 20 MEQ TAB PO SCH (13:30)
[2017-09-18] MEDS ORDERED: Magnesium Sulfate 3 GM in Sodium Chloride 0.9% 100 ML IVPB SCH (13:30)
--- NOTE | 2017-09-18 13:34 | PRG ---
DATE OF SERVICE: 09/18/2017 SERVICE: Pulmonary Medicine. INTERVAL HISTORY: The patient is doing fantastic from a respiratory standpoint. She has been up [facility] around the hallways today. She still has a little cough with some congestion. Otherwise, she i s moving in the right direction. She would like to go home with oxygen. I told her the rules about getting oxygen when she leaves the hospital. She seems okay with that. Her biggest concern was bryon t she was not sent home without oxygen in the event that she needed it. PHYSICAL EXAMINATION: VITAL SIGNS: Afebrile, pulse 71, blood pressure 133/73, respirations 18, saturation 93% on 1 liter n laure cannula. GENERAL: The patient is awake and alert, in no apparent distress. LUNGS: Decent air entry. There is no prolonged expiratory phase or wheezing. Rhonchi are present. Crackles are also evident dependently, but there is no wheezing. HEART: Normal rate, regular. ABDOMEN: Soft, nontender, nondistended. Bowel sounds are positive. MUSCULOSKELETAL: No cyanosis or clubbing. There is no pitting in the bilateral lower extremities. NEUROLOGIC: Grossly nonfocal. LABORATORY DATA: CBC is grossly unremarkable. Basic metabolic profile is also unremarkable. Her ma gnesium is 1.6. ASSESSMENT: 1. Acute hypoxic respiratory failure, resolving. 2. Acute on chronic systolic heart failure. 3. Community-acquired pneumonia, suspected. 4. Opiate abuse, history as above. 5. Tobacco abuse. 6. Chronic hepatitis C. DISCUSSION AND PLAN: The patient is doing fantastic from a respiratory standpoint. As she seems to have turned the corner, I will give her a dose of magnesium. Laboratory holiday will be provided melly . From a lung perspective, she is stable for transition out of the hospital. She will need to complete a 5-7 day course of antibiotic. I have asked for her to follow up with me in the ou tpatient setting in order to pursue a polysomnogram, so that we can take stress off her heart while s he is sleeping. She understands that this would be required to be in-lab study given her reduced eje ction fraction. At this point, she has no further requirements for inpatient Pulmonary or Critical C are opinion, I will sign off. Please call with additional questions or concerns moving forward.
[2017-09-18] MEDS: Furosemide 40 MG/4 ML VIAL SLOW IVP SCH (15:48)
[2017-09-18] MEDS: Acetaminophen 325 MG TAB PO PRN (20:26)
[2017-09-19 05:40] LABS: Anion Gap 11 mmol/L (10-20); BUN (Urea Nitrogen) 9 mg/dL (7.0-18.7); Calc. Creatinine Clearance 145 mL/min (70-130); Calcium 8.6 mg/dL (7.8-10.44); Carbon Dioxide 29 mmol/L (22-29); Chloride 102 mmol/L (98-107); Estimated GFR-MDRD Greater than 90; Glucose 131 mg/dL (70-105); Magnesium 2.3 mg/dL (1.6-2.6); Potassium 3.5 mmol/L (3.5-5.1); Sodium 138 mmol/L (136-145)
[2017-09-19] MEDS: Levothyroxine Sodium 100 MCG TAB PO SCH (05:46)
[2017-09-19] MEDS: Furosemide 40 MG/4 ML VIAL SLOW IVP SCH ×2 (05:48→14:10)
[2017-09-19] MEDS: Gabapentin 300 MG CAP PO SCH ×2 (09:41→14:10)
[2017-09-19] MEDS: Enoxaparin Sodium 40 MG/0.4 ML SYRINGE SC SCH (09:41)
[2017-09-19] MEDS: Clopidogrel Bisulfate 75 MG TAB PO SCH (09:41)
[2017-09-19] MEDS: Valsartan 80 MG TAB PO SCH (09:42)
[2017-09-19] MEDS: Atorvastatin Calcium 20 MG TAB PO SCH (09:42)
[2017-09-19] MEDS: PARoxetine 20 MG TAB PO SCH (09:42)
[2017-09-19] MEDS: Aspirin 81 mg Enteric Coated Tablet PO SCH (09:42)
[2017-09-19] MEDS: Docusate 100 MG CAP PO SCH (09:42)
[2017-09-19] MEDS: Spironolactone 25 MG TAB PO SCH (09:42)
[2017-09-19] MEDS: Buprenorphine 8mg/Naloxone 2mg per 1 FILM SL SCH (10:11)
[2017-09-19 16:18] VITALS: BP 98/66; TEMP 98.4
--- NOTE | 2017-09-19 18:41 | DIS ---
DATE OF ADMISSION: 09/13/2017 DATE OF DISCHARGE: 09/19/2017 DISCHARGE DIAGNOSES: As of the followin. Acute hypoxic respiratory failure. 2. Non-ST elevation myocardial infarction. 3. Acute on chronic systolic heart failure. 4. Coronary artery disease. 5. Hypothyroidism. HOSPITAL COURSE: The patient is a very pleasant 47-year-old female who initially presented to the [facility] on the with complaints of shortness of breath. The patient has a history of coronary art hoamr disease. She does have an AICD and also has a severe multivessel coronary disease who continues to smoke. Patient's troponins were elevated and at this time, Cardiology also was consulted. No int ervention was done per Cardiology. Patient initially was admitted in a step-down unit for further cl oser monitoring. She was also seen by Pulmonology with concern for possible either pneumonia versus COPD exacerbation. Per Cardiology's note it stated that the patient had a bypass and had a catheteri zation 6 months ago and at that time, no further surgical options were offered to this patient, only medical management was recommended. The patient continued to improve throughout the hospital stay. She was being treated with IV diuretics initially which was changed to p.o. She was also treated wit h oral antibiotics and continued to improve dramatically. The patient has been optimized on her medi cations and she will be discharged home and follow up with Cardiology and Pulmonology as outpatient. The patient was recommended to not smoke anymore. She states that she does have Chantix at home [facility] she is going to which will help her not smoke. DISCHARGE MEDICATIONS: Are as the following: She is on Paxil 40 mg daily, omeprazole 20 mg daily, C oreg 3.125 mg p.o. daily, atorvastatin 20 mg daily, aspirin 81 mg daily, Plavix 75 mg daily, levothyr oxine 100 mcg daily, valsartan 40 mg b.i.d., spironolactone 12.5 mg daily, Levaquin 500 mg daily, andre apentin 600 mg t.i.d., and Lasix 20 mg p.o. b.i.d. PHYSICAL EXAMINATION: VITAL SIGNS: Temperature of 96.4, 87, 18, 94% on room air, blood pressure 113/62. GENERAL: She is awake, alert, and oriented x3 just in apparent distress. CARDIOVASCULAR: S1, S2 present. No murmurs, rubs or gallops. LUNGS: Mild expiratory wheezes to bases, otherwise pretty clear. ABDOMEN: Soft, nontender. Bowel sounds are present x2. EXTREMITIES: No edema. DISCHARGE INSTRUCTIONS: Patient has been walking up and down the hospital hallways and also has been gone down a couple of times without any concerns for shortness of breath. She will follow up with C ardiology and also with Pulmonology as outpatient.
--- NOTE | 2017-09-19 20:22 | PDOC.CTH ---
Cardiology Progress Note - Subjective She is doing better. Her breathing is at baseline. - Objective Vital Signs Temp Pulse Resp BP Pulse Ox 09/19/17 15:47 98.4 F 83 20 98/66 94 L 09/19/17 11:20 71 20 113/62 90 L Admit Weight 195 lb 15.855 oz Weight 183 lb 09/18/17 09/19/17 09/20/17 06:59 06:59 06:59 Intake Total 1090 1520 Output Total 700 1901 Balance 390 -381 - Physical Examination General/Neuro: alert & oriented x3, NAD Neck: no JVD present Lungs: unlabored respirations Heart: RRR Abdomen: NT/ND - Telemetry Telemetry Rhythm: NSR - Labs Result Diagrams: 09/18/17 04:59 09/19/17 05:13 Troponin/CKMB CK-MB (CK-2) 7.7 ng/mL (0-6.6) H* 09/13/17 08:31 Troponin I 4.311 ng/mL (< 0.028) H* 09/15/17 03:55 - Assessment/Plan 1. Acute on chronic systolic heart failure 2. Possible pneumonia 3. Opiate abuse. 4. Tobacco use 5. Hep C PLAN: - Patient states she is back to her baseline and would loke to go home. - I think she can be discharged. - Follow up with Dr. Arriaza in 1-2 months.
--- NOTE | 2017-09-22 08:01 | PQF ---
[employer] Crystal Reports Michael SuarezMERRICK KAVITHA GEORGE [id number] CLINICAL DOCUMENTATION CLARIFICATION FORM: POST DISCHARGE Addendum to original discharge summary date: ____ Late entry note date: __ Please exercise your independent, professional judgment in responding to the clarification form. Clinical indicators are provided on the bottom of this form for your review. Please clarify the diagnosis Sepsis/ Septic shock documented in H&P and through out the progress notes. Discharge summary does not include this diagnosis, clarificaion is needed if Present on admission. Thank you Please check appropriate box(es): [ ] Sepsis due to: (Pna, UTI, gangrenous gall bladder, etc.) Due to: [ ] Device (please specify) [ ] Implant [ ] Graft [ ] Infusion [ ] SIRS due to non-infectious process (please specify etiology) [ ] with organ dysfunction [ ] without organ dysfunction [ ] Severe sepsis with acute organ dysfunction of: (Examples: respiratory failure, encephalopathy, acute kidney failure, other) [ x ] Septic Shock [ ] Localized infection without sepsis [ ] Other diagnosis [ ] Unable to determine In addition, please specify: Present on Admission (POA): [ x ] Yes [ ] No [ ] Unable to determine For continuity of documentation, please document condition throughout progress notes and discharge summary. Thank You. CLINICAL INDICATORS - SIGNS / SYMPTOMS / LABS Altered mental status Fever or hypothermia (<96.8 F/36 C or > 100.4 F/38C) Respiratory rate >20/min, Hypoxemia, SBP <100mmHg Metabolic acidosis Lactic Acid >2mmol/L, Increase BUN/Screen Printing Machine Loader Unloader, decrease GFR, coag abnormalities, thrombocytopenia-plts <100k Oliguria Shock-hypotension resistant to IV fluid boluses WBC count (>12,000/mm^4 or <4000/mm^3 or 10% neuts, 10% bands) Hyperglycemia in absence of diabetes mellitus Positive blood cultures [employer] Crystal Reports [employer] Viewer[employer]ISK FACTORS Infection/Bacteremia Pneumonia, Septic shock & Acute Respiratory failure with hypoxia Surgery / surgical instrumentation / trauma TREATMENTS: Initiation Sepsis Protocol ICU Daily CBC Blood/sputum/wound cultures ID Consult IV antibiotics - broad spectrum, Levaquin IV ?uids Vasopressors, meds (This form is maintained as a part of the permanent medical record) 2014 [employer], [employer]. All Rights Reserved Tanya [email or web address] [phone] MTDD
== END 2017-09-19 17:00 | disposition home or self-care (01) | DRG 871 ==
LOC: ERS 08:07 → ERHOLD 10:11 → CCU 11:56 → 2NO 09-16 18:54
PROVIDERS: ADMIT Internal Medicine; ATTEND Internal Medicine
PROC: 02HV33Z Insertion of Infusion Device into Superior Vena Cava, Percutaneous Approach (ICD-10-PCS; principal; 2017-09-13)
PROC: B548ZZA Ultrasonography of Superior Vena Cava, Guidance (ICD-10-PCS; 2017-09-13)
PROC: 5A1945Z Respiratory Ventilation, 24-96 Consecutive Hours (ICD-10-PCS; 2017-09-15)
PROC: 0BH17EZ Insertion of Endotracheal Airway into Trachea, Via Natural or Artificial Opening (ICD-10-PCS; 2017-09-15)
DX: A41.9 Sepsis, unspecified organism (principal); R65.21 Severe sepsis with septic shock; J96.01 Acute respiratory failure with hypoxia; I21.4 Non-ST elevation (NSTEMI) myocardial infarction; I50.23 Acute on chronic systolic (congestive) heart failure; J18.9 Pneumonia, unspecified organism; J44.0 Chronic obstructive pulmonary disease with (acute) lower respiratory infection; J44.1 Chronic obstructive pulmonary disease with (acute) exacerbation; F17.210 Nicotine dependence, cigarettes, uncomplicated; I25.119 Atherosclerotic heart disease of native coronary artery with unspecified angina pectoris; I11.0 Hypertensive heart disease with heart failure; E03.9 Hypothyroidism, unspecified; E87.5 Hyperkalemia; F11.10 Opioid abuse, uncomplicated; B18.2 Chronic viral hepatitis C; I25.5 Ischemic cardiomyopathy; F41.9 Anxiety disorder, unspecified; F32.9 Major depressive disorder, single episode, unspecified; E78.5 Hyperlipidemia, unspecified; D69.6 Thrombocytopenia, unspecified; Z95.810 Presence of automatic (implantable) cardiac defibrillator; Z95.1 Presence of aortocoronary bypass graft; Z79.02 Long term (current) use of antithrombotics/antiplatelets; Z79.82 Long term (current) use of aspirin; Z79.899 Other long term (current) drug therapy; Z95.5 Presence of coronary angioplasty implant and graft; Z99.81 Dependence on supplemental oxygen
CPT/HCPCS: 36415; 36416; 36556; 51702; 71045; 80048; 80053; 80061; 80202; 80306; 82553; 82805; 83605; 83735; 83880; 84145; 84443; 84484; 85025; 87040; 93005; 93306; 93798; 94640; 94660; 94760; 96361; 96365; 96367; 99292; A4216; J0456; J0696; J1650; J1940; J2543; J2704; J2920; J3370; J3475; J3480; J7050; J7611; J7620

== ENCOUNTER 2018-05-30 10:13 | Emergency (ER) | payer OTHER ==
[2018-05-30 10:48] LABS: #Basophils 0.1 thou/uL (0.0-0.2); #Eosinphils 0.4 thou/uL (0.0-0.7); #Lymphocytes 1.6 thou/uL (1.20-3.40); #Monocytes 0.7 thou/uL (0.11-0.59); #Neutrophils 6.6 thou/uL (1.40-6.50); %Basophils 0.9 % (0.0-1.0); %Lymphocytes 16.9 % (21.0-51.0); %Monocytes 7.1 % (0.0-10.0); %Neutrophils 71.2 % (42.0-75.0); Hemoglobin 14.5 g/dL (12.0-16.0); Mean Corpuscular HGB CONC 33.4 g/dL (32.0-36.0); Mean Corpuscular Hemoglobin 31.6 pg (27.0-31.0); Mean Corpuscular Volume 94.4 fL (78.0-98.0); Mean Platelet Volume 7.7 fL (7.4-10.4); Platelet Count 196 thou/uL (130-400); RBC Distribution Width 12.7 % (11.5-14.5); Red Blood Cell (RBC) Count 4.59 mill/uL (4.20-5.40); White Blood Cell (WBC) Count 9.3 thou/uL (4.8-10.8)
[2018-05-30 11:13] LABS: ALT (SGPT) 14 U/L (8-55); AST (SGOT) 12 U/L (5-34); Albumin 4.3 g/dL (3.5-5.0); Alkaline Phosphatase 161 U/L (40-150); Anion Gap 12 mmol/L (10-20); BUN (Urea Nitrogen) 5 mg/dL (7.0-18.7); Bilirubin, Total 0.5 mg/dL (0.2-1.2); Calc. Creatinine Clearance 0 mL/min (70-130); Calcium 9.7 mg/dL (7.8-10.44); Carbon Dioxide 31 mmol/L (22-29); Chloride 99 mmol/L (98-107); Estimated GFR-MDRD 82; Globulin 3.7 g/dL (2.4-3.5); Glucose 109 mg/dL (70-105); Lipase 20 U/L (8-78); Potassium 3.6 mmol/L (3.5-5.1); Sodium 138 mmol/L (136-145)
[2018-05-30 11:25] LABS: BHCG - Serum Negative (NEGATIVE); Pregs Control Background? CLEAR/WHITE (CLR/WHITE); Pregs Control Bar Appear? YES (CONTROL BAR)
[2018-05-30 11:33] LABS: Bilirubin Negative (Negative); Blood, Urine Moderate (Negative); Clarity CLEAR (Clear); Glucose, Urine (Dipstick) Negative (Negative); Leukocyte Negative (Negative); Nitrite Negative (Negative); Protein, Urine (Dipstick) Negative (Neg-Trace); Specific Gravity, Urine 1.004 (1.002-1.036); pH, Urine 6.5 (5.0-9.0)
[2018-05-30 11:35] LABS: Bacteria/HPF None Seen HPF (None Seen); Hyaline Casts/LPF 0-3 HYALINE CAST LPF (0-3 Hyaline); Squamous Epithelial 0-3 HPF (0-3); WBC/HPF None Seen HPF (0-3)
--- NOTE | 2018-05-30 11:47 | CT ---
CT OF THE ABDOMEN AND PELVIS WITHOUT CONTRAST: COMPARISON: 05/27/2015. HISTORY: Left-sided flank pain. TECHNIQUE: Multiple contiguous axial images were obtained in a CT of the abdomen and pelvis without contrast. C oronal reformats were performed. FINDINGS: The liver, kidneys, adrenal glands, spleen, and pancreas are unremarkable, but evaluation is limited without IV contrast. The liver is enlarged but unchanged compared to the prior examination. No calc ifications are seen in either kidney. No hydronephrosis is seen. The large and small bowel are unremarkable. The appendix is unremarkable. Atherosclerotic disease i s seen in the aorta. No abdominal or pelvic lymphadenopathy are seen. Degenerative changes are seen in the spine. The visualized inferior thorax and abdominal wall soft t issues are unremarkable. IMPRESSION: 1. No evidence of acute intraabdominal/pelvic abnormality. 2. Stable hepatomegaly. POS: [facility]
[2018-05-30] MEDS ORDERED: Ketorolac Tromethamine 30 MG/ML VIAL ONE (12:08)
== END 2018-05-30 12:30 | disposition home or self-care (01) ==
LOC: ERS 10:13
DX: R10.9 Unspecified abdominal pain (principal); R31.9 Hematuria, unspecified; I25.2 Old myocardial infarction; J44.9 Chronic obstructive pulmonary disease, unspecified; I50.9 Heart failure, unspecified; F17.210 Nicotine dependence, cigarettes, uncomplicated; Z79.899 Other long term (current) drug therapy
CPT/HCPCS: 36415; 74176; 80053; 81003; 81015; 83690; 84703; 85025; 87086; 96372; J1885

== ENCOUNTER 2021-07-18 21:59 | Inpatient (IN) | payer OTHER ==
[~2021-07-18 21:59] MED LIST: Heparin 1,000 UNITS/ML VIAL ONE
[2021-07-18 23:34] VITALS: BMI 29.0
[2021-07-18] MEDS ORDERED: Acetaminophen 650 MG Suppository PR PRN (23:51)
[2021-07-18] MEDS ORDERED: Acetaminophen 325 MG TAB PO PRN (23:51)
[2021-07-18] MEDS ORDERED: Ondansetron PF 4 MG/2 ML Vial IVP PRN (23:51)
[2021-07-19] MEDS ORDERED: Buprenorphine HCl 2 MG SL TAB PO SCH (00:30)
[2021-07-19 00:41] LABS: Anion Gap 15 mmol/L (10-20); BUN (Urea Nitrogen) 10 mg/dL (9.8-20.1); Calc. Creatinine Clearance 113 mL/min (70-130); Calcium 8.5 mg/dL (7.8-10.44); Carbon Dioxide 24 mmol/L (22-29); Chloride 104 mmol/L (98-107); Glucose 223 mg/dL (70-105); Potassium 3.5 mmol/L (3.5-5.1); Sodium 139 mmol/L (136-145)
[2021-07-19 01:24] LABS: SARS-CoV-2 NAA Rapid Test Not Detected (NotDetected)
[2021-07-19 04:29] LABS: Large Platelets SLIGHT; MDiff Complete? YES; Platelet Morphology Comment Appears Decreased; RBC Morphology Normal
[2021-07-19 04:30] LABS: #Lymphocytes 0.5 thou/uL (1.20-3.40); #Monocytes 0.2 thou/uL (0.11-0.59); #Neutrophils 12.7 thou/uL (1.40-6.50); %Basophils 0.1 % (0.0-1.0); %Eosinophils 0.2 % (0.0-10.0); %Lymphocytes 3.4 % (21.0-51.0); %Monocytes 1.8 % (0.0-10.0); %Neutrophils 94.6 % (42.0-75.0); Hemoglobin 10.8 g/dL (12.0-16.0); Mean Corpuscular HGB CONC 33.7 g/dL (32.0-36.0); Mean Corpuscular Hemoglobin 33.1 pg (27.0-31.0); Mean Corpuscular Volume 98.1 fL (78.0-98.0); Mean Platelet Volume 8.5 fL (7.4-10.4); Platelet Count 118 thou/uL (130-400); RBC Distribution Width 13.3 % (11.5-14.5); Red Blood Cell (RBC) Count 3.26 mill/uL (4.20-5.40); White Blood Cell (WBC) Count 13.4 thou/uL (4.8-10.8)
[2021-07-19 04:34] LABS: Anion Gap 11 mmol/L (10-20); BUN (Urea Nitrogen) 13 mg/dL (9.8-20.1); Calc. Creatinine Clearance 108 mL/min (70-130); Calcium 8.3 mg/dL (7.8-10.44); Carbon Dioxide 26 mmol/L (22-29); Chloride 103 mmol/L (98-107); Glucose 335 mg/dL (70-105); Magnesium 2.2 mg/dL (1.6-2.6); Potassium 3.1 mmol/L (3.5-5.1); Sodium 137 mmol/L (136-145)
[2021-07-19] MEDS ORDERED: Dextrose 50% Abboject 50 ML SYRINGE SLOW IVP PRN (06:26)
[2021-07-19] MEDS ORDERED: Dextrose 5% in Water 1,000 ML IV PRN (06:26)
[2021-07-19] MEDS: HumaLOG 300 UNITS/3 ML VIAL SC PRN ×2 (06:33→17:31)
[2021-07-19] MEDS ORDERED: Electrolyte Replacement Protocol 1 EACH FS SCH (07:00)
[2021-07-19] MEDS ORDERED: Potassium Chloride 20 MEQ TAB PO SCH (08:00)
[2021-07-19] MEDS: Furosemide 40 MG/4 ML VIAL SLOW IVP SCH (08:59)
[2021-07-19] MEDS: methylPREDNISolone Sod Succ 40 MG VIAL IVP SCH (08:59)
[2021-07-19] MEDS ORDERED: Aspirin 81 mg Enteric Coated Tablet PO SCH ×2 (11:44→12:15)
[2021-07-19] MEDS ORDERED: Buprenorphine 8mg/Naloxone 2mg per 1 FILM SL SCH ×2 (12:21→12:45)
[2021-07-19] MEDS: Enoxaparin Sodium 40 MG/0.4 ML SYRINGE SC SCH (13:46)
[2021-07-19] MEDS: cefTRIAXone\\ROCEPHIN 1 GM in Sodium Chloride 0.9% 100 ML IVPB SCH (21:52)
[2021-07-19] MEDS: Atorvastatin Calcium 40 MG TAB PO SCH (21:52)
[2021-07-19] MEDS: Azithromycin 500 MG in Sodium Chloride 0.9% 250 ML 250 ML IVPB SCH (22:21)
[2021-07-20] MEDS ORDERED: Buprenorphine 8mg/Naloxone 2mg per 1 FILM SL SCH ×2 (03:10→09:00)
[2021-07-20 04:10] LABS: #Lymphocytes 0.6 thou/uL (1.20-3.40); #Monocytes 0.7 thou/uL (0.11-0.59); #Neutrophils 14.3 thou/uL (1.40-6.50); %Eosinophils 0.1 % (0.0-10.0); %Monocytes 4.3 % (0.0-10.0); %Neutrophils 91.7 % (42.0-75.0); Hemoglobin 9.9 g/dL (12.0-16.0); Mean Corpuscular HGB CONC 31.3 g/dL (32.0-36.0); Mean Corpuscular Hemoglobin 30.8 pg (27.0-31.0); Mean Corpuscular Volume 98.6 fL (78.0-98.0); Mean Platelet Volume 8.7 fL (7.4-10.4); Platelet Count 157 thou/uL (130-400); RBC Distribution Width 13.3 % (11.5-14.5); White Blood Cell (WBC) Count 15.6 thou/uL (4.8-10.8)
[2021-07-20 04:28] LABS: Anion Gap 10 mmol/L (10-20); BUN (Urea Nitrogen) 24 mg/dL (9.8-20.1); Calc. Creatinine Clearance 103 mL/min (70-130); Calcium 8.5 mg/dL (7.8-10.44); Carbon Dioxide 28 mmol/L (22-29); Chloride 101 mmol/L (98-107); Glucose 193 mg/dL (70-105); Potassium 3.7 mmol/L (3.5-5.1); Sodium 135 mmol/L (136-145)
[2021-07-20] MEDS: HumaLOG 300 UNITS/3 ML VIAL SC PRN ×2 (05:55→17:49)
[2021-07-20] MEDS ORDERED: Carvedilol 3.125 MG TAB PO SCH (09:00)
[2021-07-20] MEDS ORDERED: PAROXETINE HCL 40 MG PO SCH (09:00)
[2021-07-20] MEDS: Aspirin 81 mg Enteric Coated Tablet PO SCH (09:31)
[2021-07-20] MEDS: PARoxetine 20 MG TAB PO SCH (09:31)
[2021-07-20] MEDS: Levothyroxine Sodium 125 MCG TAB PO SCH (09:31)
[2021-07-20] MEDS ORDERED: Albuterol Sulfate 2.5 mg/3 ml Neb NEB PRN (09:31)
[2021-07-20] MEDS: Furosemide 40 MG/4 ML VIAL SLOW IVP SCH (09:31)
[2021-07-20] MEDS: Clopidogrel Bisulfate 75 MG TAB PO SCH (09:31)
[2021-07-20] MEDS: Enoxaparin Sodium 40 MG/0.4 ML SYRINGE SC SCH (09:31)
[2021-07-20] MEDS: methylPREDNISolone Sod Succ 40 MG VIAL IVP SCH (09:31)
[2021-07-20] MEDS: Empagliflozin 10 MG TAB PO SCH (09:32)
[2021-07-20] MEDS: Carvedilol 3.125 MG TAB PO SCH (09:32)
[2021-07-20] MEDS ORDERED: Buprenorphine 8mg/Naloxone 2mg per 1 FILM PO SCH (10:00)
[2021-07-20] MEDS: cefTRIAXone\\ROCEPHIN 1 GM in Sodium Chloride 0.9% 100 ML IVPB SCH (20:39)
[2021-07-20] MEDS: Atorvastatin Calcium 40 MG TAB PO SCH (20:40)
[2021-07-20] MEDS: Docusate 100 MG CAP PO SCH (21:26)
[2021-07-20] MEDS: Azithromycin 500 MG in Sodium Chloride 0.9% 250 ML 250 ML IVPB SCH (21:34)
[2021-07-21 04:47] LABS: #Lymphocytes 1.3 thou/uL (1.20-3.40); #Monocytes 0.9 thou/uL (0.11-0.59); #Neutrophils 9.4 thou/uL (1.40-6.50); %Basophils 0.1 % (0.0-1.0); %Eosinophils 0.2 % (0.0-10.0); %Lymphocytes 11.4 % (21.0-51.0); %Monocytes 7.6 % (0.0-10.0); %Neutrophils 80.7 % (42.0-75.0); Hemoglobin 9.9 g/dL (12.0-16.0); Mean Corpuscular HGB CONC 31.6 g/dL (32.0-36.0); Mean Corpuscular Hemoglobin 31.1 pg (27.0-31.0); Mean Corpuscular Volume 98.3 fL (78.0-98.0); Mean Platelet Volume 8.5 fL (7.4-10.4); Platelet Count 161 thou/uL (130-400); RBC Distribution Width 13.4 % (11.5-14.5); Red Blood Cell (RBC) Count 3.19 mill/uL (4.20-5.40); White Blood Cell (WBC) Count 11.6 thou/uL (4.8-10.8)
[2021-07-21 05:05] LABS: Phosphorus 2.2 mg/dL (2.3-4.7)
[2021-07-21 05:13] LABS: Anion Gap 11 mmol/L (10-20); BUN (Urea Nitrogen) 22 mg/dL (9.8-20.1); Calc. Creatinine Clearance 108 mL/min (70-130); Calcium 8.4 mg/dL (7.8-10.44); Carbon Dioxide 29 mmol/L (22-29); Chloride 99 mmol/L (98-107); Glucose 108 mg/dL (70-105); Sodium 136 mmol/L (136-145)
[2021-07-21 05:16] LABS: Potassium 2.9 mmol/L (3.5-5.1)
[2021-07-21] MEDS ORDERED: Electrolyte Replacement Protocol FS PRN (05:45)
[2021-07-21] MEDS ORDERED: Magnesium 2 GM/50 ML(in water) 2 GM in Premix Bag 1 BAG IVPB SCH ×2 (05:45→07:00)
[2021-07-21] MEDS: Potassium Chloride 20 MEQ TAB PO SCH ×2 (05:59→09:00)
[2021-07-21] MEDS ORDERED: Buprenorphine 8mg/Naloxone 2mg per 1 FILM PO SCH (06:45)
[2021-07-21] MEDS: Enoxaparin Sodium 40 MG/0.4 ML SYRINGE SC SCH (08:56)
[2021-07-21] MEDS: methylPREDNISolone Sod Succ 40 MG VIAL IVP SCH ×4 (08:56→18:47)
[2021-07-21] MEDS: Furosemide 40 MG/4 ML VIAL SLOW IVP SCH (08:56)
[2021-07-21] MEDS: Levothyroxine Sodium 125 MCG TAB PO SCH (08:57)
[2021-07-21] MEDS: Docusate 100 MG CAP PO SCH ×2 (08:57→21:46)
[2021-07-21] MEDS: Aspirin 81 mg Enteric Coated Tablet PO SCH (08:57)
[2021-07-21] MEDS: PARoxetine 20 MG TAB PO SCH (08:57)
[2021-07-21] MEDS: Carvedilol 3.125 MG TAB PO SCH (08:57)
[2021-07-21] MEDS: Clopidogrel Bisulfate 75 MG TAB PO SCH (08:57)
[2021-07-21] MEDS: Empagliflozin 10 MG TAB PO SCH (08:57)
[2021-07-21] MEDS: HumaLOG 300 UNITS/3 ML VIAL SC PRN ×2 (11:13→17:54)
[2021-07-21] MEDS ORDERED: Furosemide 40 MG/4 ML VIAL SLOW IVP SCH ×2 (14:00→18:30)
[2021-07-21] MEDS ORDERED: Metolazone 5 MG TAB PO SCH (18:30)
[2021-07-21] MEDS ORDERED: Furosemide 100 MG/10 ML VIAL SLOW IVP SCH ×2 (18:30→19:00)
[2021-07-21] MEDS: Atorvastatin Calcium 40 MG TAB PO SCH (21:43)
[2021-07-21] MEDS: cefTRIAXone\\ROCEPHIN 1 GM in Sodium Chloride 0.9% 100 ML IVPB SCH (21:44)
[2021-07-21] MEDS: Azithromycin 500 MG in Sodium Chloride 0.9% 250 ML 250 ML IVPB SCH (22:25)
[2021-07-22 03:37] LABS: Potassium 3.4 mmol/L (3.5-5.1)
[2021-07-22 03:43] LABS: Magnesium 2.4 mg/dL (1.6-2.6)
[2021-07-22 03:49] LABS: Phosphorus 4.2 mg/dL (2.3-4.7)
[2021-07-22] MEDS ORDERED: Potassium Chloride 20 MEQ TAB PO SCH ×2 (04:00→07:00)
[2021-07-22 06:00] LABS: #Lymphocytes 0.7 thou/uL (1.20-3.40); #Monocytes 1.1 thou/uL (0.11-0.59); #Neutrophils 13.1 thou/uL (1.40-6.50); %Eosinophils 0.1 % (0.0-10.0); %Lymphocytes 4.4 % (21.0-51.0); %Monocytes 7.2 % (0.0-10.0); %Neutrophils 88.4 % (42.0-75.0); Hemoglobin 11.5 g/dL (12.0-16.0); Mean Corpuscular HGB CONC 31.6 g/dL (32.0-36.0); Mean Corpuscular Hemoglobin 30.5 pg (27.0-31.0); Mean Corpuscular Volume 96.6 fL (78.0-98.0); Mean Platelet Volume 8.8 fL (7.4-10.4); Platelet Count 220 thou/uL (130-400); RBC Distribution Width 13.4 % (11.5-14.5); Red Blood Cell (RBC) Count 3.78 mill/uL (4.20-5.40); White Blood Cell (WBC) Count 14.8 thou/uL (4.8-10.8)
[2021-07-22] MEDS ORDERED: Furosemide 40 MG/4 ML VIAL SLOW IVP SCH ×6 (06:00→14:00)
[2021-07-22 06:24] LABS: Anion Gap 17 mmol/L (10-20); BUN (Urea Nitrogen) 30 mg/dL (9.8-20.1); Calc. Creatinine Clearance 69 mL/min (70-130); Calcium 9.7 mg/dL (7.8-10.44); Carbon Dioxide 33 mmol/L (22-29); Chloride 90 mmol/L (98-107); Glucose 239 mg/dL (70-105); Potassium 3.3 mmol/L (3.5-5.1); Sodium 137 mmol/L (136-145)
[2021-07-22] MEDS: HumaLOG 300 UNITS/3 ML VIAL SC PRN ×3 (06:27→17:25)
[2021-07-22] MEDS: methylPREDNISolone Sod Succ 40 MG VIAL IVP SCH ×2 (06:44→17:25)
[2021-07-22] MEDS ORDERED: Buprenorphine 8mg/Naloxone 2mg per 1 FILM PO SCH (06:45)
[2021-07-22] MEDS ORDERED: Metolazone 5 MG TAB PO SCH ×2 (09:00)
[2021-07-22] MEDS: Enoxaparin Sodium 40 MG/0.4 ML SYRINGE SC SCH (09:04)
[2021-07-22] MEDS: Clopidogrel Bisulfate 75 MG TAB PO SCH (09:05)
[2021-07-22] MEDS: Levothyroxine Sodium 125 MCG TAB PO SCH (09:05)
[2021-07-22] MEDS: PARoxetine 20 MG TAB PO SCH (09:05)
[2021-07-22] MEDS: Spironolactone 25 MG TAB PO SCH (09:05)
[2021-07-22] MEDS: Docusate 100 MG CAP PO SCH ×2 (09:05→22:16)
[2021-07-22] MEDS: Aspirin 81 mg Enteric Coated Tablet PO SCH (09:05)
[2021-07-22] MEDS: Empagliflozin 10 MG TAB PO SCH (09:05)
[2021-07-22] MEDS: Buprenorphine 8mg/Naloxone 2mg per 1 FILM SL SCH ×2 (09:06→22:16)
[2021-07-22] MEDS: Azithromycin 500 MG in Sodium Chloride 0.9% 250 ML 250 ML IVPB SCH (19:59)
[2021-07-22] MEDS: cefTRIAXone\\ROCEPHIN 1 GM in Sodium Chloride 0.9% 100 ML IVPB SCH (22:14)
[2021-07-22] MEDS: Atorvastatin Calcium 40 MG TAB PO SCH (22:15)
[2021-07-23] MEDS ORDERED: Furosemide 20 MG/2 ML VIAL SLOW IVP SCH (06:00)
[2021-07-23] MEDS: methylPREDNISolone Sod Succ 40 MG VIAL IVP SCH ×2 (06:09→17:17)
[2021-07-23] MEDS: HumaLOG 300 UNITS/3 ML VIAL SC PRN ×3 (06:49→17:17)
[2021-07-23 08:23] LABS: Anion Gap 18 mmol/L (10-20); BUN (Urea Nitrogen) 46 mg/dL (9.8-20.1); Calc. Creatinine Clearance 64 mL/min (70-130); Calcium 9.7 mg/dL (7.8-10.44); Carbon Dioxide 33 mmol/L (22-29); Chloride 87 mmol/L (98-107); Glucose 153 mg/dL (70-105); Potassium 4.2 mmol/L (3.5-5.1); Sodium 134 mmol/L (136-145)
[2021-07-23] MEDS ORDERED: Sacubitril 49 MG/Valsartan 51 MG TABLET PO SCH (09:00)
[2021-07-23] MEDS: Buprenorphine 8mg/Naloxone 2mg per 1 FILM SL SCH ×2 (09:06→20:40)
[2021-07-23] MEDS: PARoxetine 20 MG TAB PO SCH (09:07)
[2021-07-23] MEDS: Enoxaparin Sodium 40 MG/0.4 ML SYRINGE SC SCH (09:07)
[2021-07-23] MEDS: Clopidogrel Bisulfate 75 MG TAB PO SCH (09:08)
[2021-07-23] MEDS: Spironolactone 25 MG TAB PO SCH (09:08)
[2021-07-23] MEDS: Empagliflozin 10 MG TAB PO SCH (09:08)
[2021-07-23] MEDS: Levothyroxine Sodium 125 MCG TAB PO SCH (09:08)
[2021-07-23] MEDS: Aspirin 81 mg Enteric Coated Tablet PO SCH (09:08)
[2021-07-23] MEDS: Docusate 100 MG CAP PO SCH ×2 (09:09→20:39)
[2021-07-23] MEDS ORDERED: AcetaZOLAMIDE 250 MG TAB PO SCH (15:15)
[2021-07-23 15:59] LABS: ALT (SGPT) 25 U/L (8-55); AST (SGOT) 16 U/L (5-34); Albumin 4.3 g/dL (3.5-5.0); Alkaline Phosphatase 182 U/L (40-110); Anion Gap 20 mmol/L (10-20); BUN (Urea Nitrogen) 51 mg/dL (9.8-20.1); Bilirubin, Total 0.7 mg/dL (0.2-1.2); Calc. Creatinine Clearance 54 mL/min (70-130); Calcium 9.5 mg/dL (7.8-10.44); Carbon Dioxide 31 mmol/L (22-29); Chloride 86 mmol/L (98-107); Globulin 4.2 g/dL (2.4-3.5); Glucose 250 mg/dL (70-105); Magnesium 2.3 mg/dL (1.6-2.6); Potassium 4.1 mmol/L (3.5-5.1); Protein, Total 8.5 g/dL (6.0-8.3); Sodium 133 mmol/L (136-145)
[2021-07-23] MEDS: Azithromycin 500 MG in Sodium Chloride 0.9% 250 ML 250 ML IVPB SCH (20:24)
[2021-07-23] MEDS: Atorvastatin Calcium 40 MG TAB PO SCH (20:39)
[2021-07-23] MEDS: Ondansetron ODT 4 MG TAB PO PRN (20:51)
[2021-07-23] MEDS: cefTRIAXone\\ROCEPHIN 1 GM in Sodium Chloride 0.9% 100 ML IVPB SCH (22:06)
[2021-07-24 03:14] LABS: Anion Gap 18 mmol/L (10-20); BUN (Urea Nitrogen) 57 mg/dL (9.8-20.1); Calc. Creatinine Clearance 55 mL/min (70-130); Calcium 9.6 mg/dL (7.8-10.44); Carbon Dioxide 33 mmol/L (22-29); Chloride 87 mmol/L (98-107); Glucose 299 mg/dL (70-105); Magnesium 2.4 mg/dL (1.6-2.6); Potassium 4.2 mmol/L (3.5-5.1); Sodium 134 mmol/L (136-145)
[2021-07-24] MEDS: methylPREDNISolone Sod Succ 40 MG VIAL IVP SCH (05:39)
[2021-07-24] MEDS: HumaLOG 300 UNITS/3 ML VIAL SC PRN ×4 (05:43→21:03)
[2021-07-24 09:09] LABS: ALT (SGPT) 22 U/L (8-55); AST (SGOT) 13 U/L (5-34); Albumin 4.4 g/dL (3.5-5.0); Alkaline Phosphatase 159 U/L (40-110); Anion Gap 15 mmol/L (10-20); BUN (Urea Nitrogen) 59 mg/dL (9.8-20.1); Bilirubin, Total 0.6 mg/dL (0.2-1.2); Calc. Creatinine Clearance 58 mL/min (70-130); Calcium 9.7 mg/dL (7.8-10.44); Carbon Dioxide 30 mmol/L (22-29); Chloride 89 mmol/L (98-107); Globulin 4.3 g/dL (2.4-3.5); Glucose 199 mg/dL (70-105); Magnesium 2.5 mg/dL (1.6-2.6); Protein, Total 8.7 g/dL (6.0-8.3); Sodium 130 mmol/L (136-145)
[2021-07-24] MEDS: Buprenorphine 8mg/Naloxone 2mg per 1 FILM SL SCH ×2 (09:15→20:58)
[2021-07-24] MEDS: Enoxaparin Sodium 40 MG/0.4 ML SYRINGE SC SCH (09:22)
[2021-07-24] MEDS: Clopidogrel Bisulfate 75 MG TAB PO SCH (09:23)
[2021-07-24] MEDS: AcetaZOLAMIDE 250 MG TAB PO SCH (09:23)
[2021-07-24] MEDS: Empagliflozin 10 MG TAB PO SCH (09:24)
[2021-07-24] MEDS: Docusate 100 MG CAP PO SCH ×2 (09:24→20:59)
[2021-07-24] MEDS: Levothyroxine Sodium 125 MCG TAB PO SCH (09:24)
[2021-07-24] MEDS: PARoxetine 20 MG TAB PO SCH (09:25)
[2021-07-24] MEDS: Aspirin 81 mg Enteric Coated Tablet PO SCH (09:25)
[2021-07-24] MEDS: Torsemide 20 MG TAB PO SCH (09:26)
[2021-07-24] MEDS: Spironolactone 25 MG TAB PO SCH (09:27)
[2021-07-24] MEDS: predniSONE 20 MG TAB PO SCH (09:27)
[2021-07-24] MEDS ORDERED: Bumetanide 1 MG TAB PO SCH (09:45)
[2021-07-24] MEDS ORDERED: Potassium Chloride 20 MEQ TAB PO SCH (10:00)
[2021-07-24] MEDS: Ondansetron ODT 4 MG TAB PO PRN (17:51)
[2021-07-24] MEDS: Atorvastatin Calcium 40 MG TAB PO SCH (20:57)
[2021-07-24] MEDS: Azithromycin 250 MG TAB PO SCH (20:57)
[2021-07-25 08:21] LABS: Anion Gap 15 mmol/L (10-20); BUN (Urea Nitrogen) 64 mg/dL (9.8-20.1); Calc. Creatinine Clearance 56 mL/min (70-130); Calcium 9.3 mg/dL (7.8-10.44); Carbon Dioxide 28 mmol/L (22-29); Chloride 91 mmol/L (98-107); Glucose 186 mg/dL (70-105); Magnesium 2.5 mg/dL (1.6-2.6); Potassium 3.9 mmol/L (3.5-5.1); Sodium 130 mmol/L (136-145)
[2021-07-25] MEDS ORDERED: Bumetanide 1 MG TAB PO SCH (09:00)
[2021-07-25] MEDS: predniSONE 20 MG TAB PO SCH (09:19)
[2021-07-25] MEDS: PARoxetine 20 MG TAB PO SCH (09:19)
[2021-07-25] MEDS: Aspirin 81 mg Enteric Coated Tablet PO SCH (09:19)
[2021-07-25] MEDS: Buprenorphine 8mg/Naloxone 2mg per 1 FILM SL SCH ×2 (09:20→21:34)
[2021-07-25] MEDS: Empagliflozin 10 MG TAB PO SCH (09:20)
[2021-07-25] MEDS: Clopidogrel Bisulfate 75 MG TAB PO SCH (09:20)
[2021-07-25] MEDS: Spironolactone 25 MG TAB PO SCH (09:20)
[2021-07-25] MEDS: Enoxaparin Sodium 40 MG/0.4 ML SYRINGE SC SCH (09:20)
[2021-07-25] MEDS: Docusate 100 MG CAP PO SCH ×2 (09:20→21:36)
[2021-07-25] MEDS: AcetaZOLAMIDE 250 MG TAB PO SCH (09:20)
[2021-07-25] MEDS: Torsemide 20 MG TAB PO SCH (09:20)
[2021-07-25] MEDS: Levothyroxine Sodium 125 MCG TAB PO SCH (09:21)
[2021-07-25] MEDS ORDERED: Milrinone Lactate/D5W 20 MG in Premix Bag 1 BAG IV SCH (11:00)
[2021-07-25] MEDS ORDERED: Potassium Chloride 20 MEQ TAB PO SCH (11:15)
[2021-07-25] MEDS: HumaLOG 300 UNITS/3 ML VIAL SC PRN ×3 (13:08→21:36)
[2021-07-25] MEDS: DOBUTamine 500 mg/250 ml 500 MG in Premix Bag 1 BAG IVPB SCH (18:20)
[2021-07-25 20:07] LABS: SARS-CoV-2 PCR by NAA Not Detected (NotDetected)
[2021-07-25] MEDS: Azithromycin 250 MG TAB PO SCH (21:35)
[2021-07-25] MEDS: Atorvastatin Calcium 40 MG TAB PO SCH (21:35)
[2021-07-25] MEDS: Potassium Chloride 20 MEQ TAB PO SCH (21:36)
[2021-07-26] MEDS: Albumin 25% 25 GM/100 ML BOT IVPB SCH ×3 (00:04→14:55)
[2021-07-26] MEDS ORDERED: Sodium Chloride 0.9% 250 ML IV SCH (03:00)
[2021-07-26 04:20] LABS: #Eosinphils 0.1 thou/uL (0.0-0.7); #Lymphocytes 1.6 thou/uL (1.20-3.40); #Monocytes 1.1 thou/uL (0.11-0.59); #Neutrophils 10.5 thou/uL (1.40-6.50); %Basophils 0.2 % (0.0-1.0); %Eosinophils 0.4 % (0.0-10.0); %Lymphocytes 11.8 % (21.0-51.0); %Neutrophils 79.6 % (42.0-75.0); Hemoglobin 12.8 g/dL (12.0-16.0); Mean Corpuscular HGB CONC 33.8 g/dL (32.0-36.0); Mean Corpuscular Hemoglobin 32.6 pg (27.0-31.0); Mean Corpuscular Volume 96.4 fL (78.0-98.0); Platelet Count 231 thou/uL (130-400); RBC Distribution Width 13.5 % (11.5-14.5); Red Blood Cell (RBC) Count 3.93 mill/uL (4.20-5.40); White Blood Cell (WBC) Count 13.1 thou/uL (4.8-10.8)
[2021-07-26 04:31] LABS: Lactic Acid 0.8 mmol/L (0.5-2.2)
[2021-07-26 04:40] LABS: Anion Gap 14 mmol/L (10-20); BUN (Urea Nitrogen) 72 mg/dL (9.8-20.1); Calc. Creatinine Clearance 58 mL/min (70-130); Calcium 9.1 mg/dL (7.8-10.44); Carbon Dioxide 30 mmol/L (22-29); Chloride 94 mmol/L (98-107); Glucose 144 mg/dL (70-105); Magnesium 2.7 mg/dL (1.6-2.6); Potassium 3.5 mmol/L (3.5-5.1); Sodium 134 mmol/L (136-145)
[2021-07-26] MEDS ORDERED: Potassium Chloride 20 MEQ TAB PO SCH (05:15)
[2021-07-26] MEDS ORDERED: Norepinephrine 8 MG in Dextrose 5% in Water 242 ML IVPB PRN (05:45)
[2021-07-26] MEDS ORDERED: Norepinephrine 8 MG/0.9% NS 250 ML IVPB SCH (05:45)
[2021-07-26 06:13] VITALS: BP 91/55
[2021-07-26] MEDS: predniSONE 20 MG TAB PO SCH (08:31)
[2021-07-26] MEDS: Aspirin 81 mg Enteric Coated Tablet PO SCH (08:31)
[2021-07-26] MEDS: PARoxetine 20 MG TAB PO SCH (08:31)
[2021-07-26] MEDS: Potassium Chloride 20 MEQ TAB PO SCH ×2 (08:31→20:46)
[2021-07-26] MEDS: Docusate 100 MG CAP PO SCH ×2 (08:31→20:47)
[2021-07-26] MEDS: Enoxaparin Sodium 40 MG/0.4 ML SYRINGE SC SCH (08:31)
[2021-07-26] MEDS: Empagliflozin 10 MG TAB PO SCH (08:32)
[2021-07-26] MEDS: Clopidogrel Bisulfate 75 MG TAB PO SCH (08:32)
[2021-07-26] MEDS: Levothyroxine Sodium 125 MCG TAB PO SCH (08:32)
[2021-07-26] MEDS ORDERED: Sodium Chloride 0.9% 500 ML IV SCH (10:00)
[2021-07-26] MEDS ORDERED: Sodium Chloride 0.9% 500 ML IVPB SCH (10:15)
[2021-07-26] MEDS: DOBUTamine 500 mg/250 ml 500 MG in Premix Bag 1 BAG IVPB SCH ×2 (12:00→19:11)
[2021-07-26 12:20] LABS: Actual Bicarbonate (HCO3a) 24.1 mEq/L (22-28); Base Excess (BEa) -0.5 mEq/L (-2.0 to +3.0); CO2 Tension 39.4 mmHg (35.0-45.0); Calcium, Ionized (arterial) 1.15 mmol/L (1.12-1.30); Carboxyhemoglobin (COHb) 1.1 gm% (0.0-3.0); Hemoglobin (Hb) 12.2 g/dL (12.0-16.0); Potassium - ABG Lab 4.21 mmol/L (3.70-5.30)
[2021-07-26 12:28] LABS: O2 Tension (PaO2), arterial 52.6 mmHg (80.0-100.0)
[2021-07-26 12:29] LABS: Puncture Site LRA
[2021-07-26] MEDS ORDERED: Amiodarone 150 MG, Admixture Fee 1 EACH in Dextrose 5% in Water 100 ML IVPB SCH (12:30)
[2021-07-26] MEDS ORDERED: Potassium Chloride 40 MEQ in Sodium Chloride 0.9% 250 ML 250 ML IVPB SCH (12:30)
[2021-07-26 12:40] LABS: Amphetamine Not Detected (NotDetected); Barbiturates Screen Not Detected (NotDetected); Benzodiazepine Screen Not Detected (NotDetected); Cocaine Metabolite Screen Not Detected (NotDetected); Methadone Not Detected (NotDetected); Methamphetamine Not Detected (NotDetected); Opiate Screen Not Detected (NotDetected); Oxycodone Screen Not Detected (NotDetected); Phencyclidine (PCP) Not Detected (NotDetected); THC/Cannabinoid Screen Not Detected (NotDetected); Tricyclic Screen Not Detected (NotDetected)
[2021-07-26] MEDS ORDERED: Cosyntropin 250 MCG VIAL SLOW IVP SCH (13:00)
[2021-07-26] MEDS: Buprenorphine 8mg/Naloxone 2mg per 1 FILM SL SCH ×2 (13:00→21:30)
[2021-07-26] MEDS: Amiodarone 450 MG, Admixture Fee 1 EACH in Dextrose 5% in Water 250 ML IVPB SCH ×2 (14:09→22:41)
[2021-07-26] MEDS: Atorvastatin Calcium 40 MG TAB PO SCH (20:47)
[2021-07-26] MEDS: Azithromycin 250 MG TAB PO SCH (20:47)
[2021-07-26] MEDS: HumaLOG 300 UNITS/3 ML VIAL SC PRN (20:55)
[2021-07-26 21:02] VITALS: TEMP 98.3
== END 2021-07-27 00:11 | disposition short-term general hospital (02) | DRG 291 ==
LOC: 2NO 23:20 → CCU 07-26 05:03
PROVIDERS: ADMIT Student in an Organized Health Care Education/Training Program; ATTEND Family Medicine
PROC: 02HV33Z Insertion of Infusion Device into Superior Vena Cava, Percutaneous Approach (ICD-10-PCS; principal; 2021-07-25)
PROC: B548ZZA Ultrasonography of Superior Vena Cava, Guidance (ICD-10-PCS; 2021-07-25)
PROC: B5181ZA Fluoroscopy of Superior Vena Cava using Low Osmolar Contrast, Guidance (ICD-10-PCS; 2021-07-25)
PROC: 4B02XTZ Measurement of Cardiac Defibrillator, External Approach (ICD-10-PCS; 2021-07-25)
PROC: 3E043XZ Introduction of Vasopressor into Central Vein, Percutaneous Approach (ICD-10-PCS; 2021-07-26)
DX: I50.43 Acute on chronic combined systolic (congestive) and diastolic (congestive) heart failure (principal); Z20.822 Contact with and (suspected) exposure to COVID-19; J96.01 Acute respiratory failure with hypoxia; R57.0 Cardiogenic shock; J18.9 Pneumonia, unspecified organism; J44.1 Chronic obstructive pulmonary disease with (acute) exacerbation; T82.110A Breakdown (mechanical) of cardiac electrode, initial encounter; J44.0 Chronic obstructive pulmonary disease with (acute) lower respiratory infection; I47.2 Ventricular tachycardia; E03.9 Hypothyroidism, unspecified; F17.210 Nicotine dependence, cigarettes, uncomplicated; Y83.1 Surgical operation with implant of artificial internal device as the cause of abnormal reaction of the patient, or of later complication, without mention of misadventure at the time of the procedure; G89.29 Other chronic pain; F41.9 Anxiety disorder, unspecified; I10 Essential (primary) hypertension; F32.A Depression, unspecified; I25.10 Atherosclerotic heart disease of native coronary artery without angina pectoris; I25.5 Ischemic cardiomyopathy; E78.5 Hyperlipidemia, unspecified; E66.9 Obesity, unspecified; E11.65 Type 2 diabetes mellitus with hyperglycemia; I08.1 Rheumatic disorders of both mitral and tricuspid valves; E87.6 Hypokalemia; E83.42 Hypomagnesemia; Z95.810 Presence of automatic (implantable) cardiac defibrillator; I25.2 Old myocardial infarction; Z88.5 Allergy status to narcotic agent; Z79.899 Other long term (current) drug therapy; Z79.02 Long term (current) use of antithrombotics/antiplatelets; Z79.82 Long term (current) use of aspirin; Z79.890 Hormone replacement therapy; Z95.1 Presence of aortocoronary bypass graft; Z90.89 Acquired absence of other organs; Z90.710 Acquired absence of both cervix and uterus; Z86.19 Personal history of other infectious and parasitic diseases; Z90.49 Acquired absence of other specified parts of digestive tract; Z82.49 Family history of ischemic heart disease and other diseases of the circulatory system; Z68.27 Body mass index [BMI] 27.0-27.9, adult
CPT/HCPCS: 36415; 36416; 36569; 36600; 71045; 80048; 80306; 80400; 82805; 83605; 83735; 83880; 84100; 84145; 84443; 85025; 86140; 86850; 86900; 86901; 94640; 94660; C1751; J0282; J0456; J0571; J0696; J0834; J1250; J1644; J1650; J1815; J1940; J2260; J2920; J3475; J3480; J3490; J7030; J7050; J7070; J7512; J7620; P9047; Q0162; U0002; U0003; U0005

== ENCOUNTER 2022-07-21 23:01 | Inpatient (IN) | payer OTHER ==
[2022-07-21] MEDS ORDERED: Furosemide 100 MG/10 ML VIAL ONE (23:07)
[2022-07-21 23:24] LABS: Actual Bicarbonate (HCO3a) 17.4 mEq/L (22-28); Analyzer IN Cardio ER; Base Excess (BEa) -10.2 mEq/L (-2.0 to +3.0); CO2 Tension 44.8 mmHg (35.0-45.0); Calcium, Ionized (arterial) 1.08 mmol/L (1.12-1.30); Carboxyhemoglobin (COHb) 2.7 gm% (0.0-3.0); Hemoglobin (Hb) 12.7 g/dL (12.0-16.0); O2 Tension (PaO2), arterial 66.5 mmHg (80.0-100.0); Potassium - ABG Lab 4.47 mmol/L (3.70-5.30); pH, Arterial 7.21 (7.35-7.45)
[2022-07-21 23:26] LABS: Puncture Site LRA
[2022-07-21] MEDS ORDERED: Nitroglycerin 2% Ointment 1 INCH/1 GM Packet ONE (23:29)
[2022-07-21] MEDS ORDERED: cefTRIAXone (ROCEPHIN) 1 GM VIAL ONE (23:30)
[2022-07-21] MEDS ORDERED: Aspirin 300 MG Suppository ONE (23:30)
[2022-07-21] MEDS ORDERED: Azithromycin 500 MG VIAL ONE (23:30)
[2022-07-21] MEDS ORDERED: Fentanyl CADD 100 ML IV SCH (23:30)
[2022-07-21] MEDS ORDERED: NOREPINEPHRINE 8 MG/250 ML-D5W 250 ML ONE (23:32)
[2022-07-21 23:37] LABS: #Basophils 0.1 thou/uL (0.0-0.2); #Eosinphils 0.1 thou/uL (0.0-0.7); #Lymphocytes 1.7 thou/uL (1.20-3.40); #Monocytes 0.7 thou/uL (0.11-0.59); #Neutrophils 13.4 thou/uL (1.40-6.50); %Basophils 0.4 % (0.0-1.0); %Eosinophils 0.5 % (0.0-10.0); %Lymphocytes 10.8 % (21.0-51.0); %Monocytes 4.4 % (0.0-10.0); %Neutrophils 83.9 % (42.0-75.0); Hemoglobin 12.1 g/dL (12.0-16.0); Mean Corpuscular HGB CONC 33.3 g/dL (32.0-36.0); Mean Corpuscular Hemoglobin 33.1 pg (27.0-31.0); Mean Corpuscular Volume 99.6 fl (78.0-98.0); Mean Platelet Volume 9.1 fL (7.4-10.4); Platelet Count 208 10x3/uL (130-400); RBC Distribution Width 12.6 % (11.5-14.5); Red Blood Cell (RBC) Count 3.64 mill/uL (4.20-5.40)
[2022-07-21 23:41] LABS: INR-International Normal Ratio 1.3; Prothrombin Time 16.5 sec (12.0-14.7)
[2022-07-21 23:42] LABS: PTT 90.2 sec (22.9-36.1)
[2022-07-21 23:46] LABS: Chloride 101 mmol/L (98-107); Potassium 4.8 mmol/L (3.5-5.1); Sodium 133 mmol/L (136-145)
[2022-07-22 00:18] LABS: Bilirubin Negative (Negative); Blood, Urine 2+ (Negative); Clarity Clear (Clear); Glucose, Urine (Dipstick) 50 mg/dL (Negative); Ketone, Urine Negative (Negative); Leukocyte Negative Leu/uL (Negative); Nitrite Negative (Negative); Protein, Urine (Dipstick) 30 mg/dL (Neg-Trace); Specific Gravity, Urine 1.006 (1.002-1.036); Squamous Epithelial 0-3 HPF (0-3); Urobilinogen Normal mg/dL (Less than 2)
[2022-07-22 00:19] LABS: Bacteria/HPF 1+ HPF (None Seen)
[2022-07-22 00:59] LABS: SARS-CoV-2 NAA Rapid Test Not Detected (NotDetected)
[2022-07-22] MEDS ORDERED: Heparin 25,000 units/D5W 500 ML IV SCH (02:30)
[2022-07-22] MEDS ORDERED: Morphine 2 MG/ML VIAL SLOW IVP PRN (02:30)
[2022-07-22] MEDS ORDERED: Propofol 1,000 MG/100 ML VIAL IV PRN (02:30)
[2022-07-22] MEDS ORDERED: Propofol BOLUS 1,000 MG/100 ML VIAL IV PRN (02:30)
[2022-07-22] MEDS ORDERED: Fentanyl BOLUS 250 ML IVPB PRN (02:30)
[2022-07-22] MEDS ORDERED: Lorazepam 2 MG/ML VIAL SLOW IVP PRN (02:30)
[2022-07-22] MEDS ORDERED: Heparin 10,000 UNITS/ 10 ML VIAL SLOW IVP SCH (02:30)
[2022-07-22] MEDS ORDERED: DISCONTINUE PREVIOUS NARCOTIC PAIN MEDICATIONS AND BENZODIAZEPINES FS SCH (02:30)
[2022-07-22 02:33] LABS: CKMB 0.9 ng/mL (0-6.6)
[2022-07-22 02:34] LABS: Troponin I 0.056 ng/mL (< 0.028)
[2022-07-22 02:51] LABS: Albumin 4.1 g/dL (3.5-5.0)
[2022-07-22 02:53] LABS: Calcium 8.4 mg/dL (7.8-10.44); Glucose 374 mg/dL (70-105)
[2022-07-22 02:54] LABS: Protein, Total 7.1 g/dL (6.0-8.3)
[2022-07-22 02:55] LABS: Anion Gap 25 mmol/L (10-20); Bilirubin, Total 2.2 mg/dL (0.2-1.2); Carbon Dioxide 14 mmol/L (22-29)
[2022-07-22 02:56] LABS: Alkaline Phosphatase 331 U/L (40-110)
[2022-07-22 02:57] LABS: Calc. Creatinine Clearance 0 mL/min (70-130); Estimated GFR 48
[2022-07-22 02:58] LABS: BUN (Urea Nitrogen) 12 mg/dL (9.8-20.1)
[2022-07-22 02:59] LABS: ALT (SGPT) 62 U/L (8-55); AST (SGOT) 100 U/L (5-34)
[2022-07-22 03:00] LABS: CK (CPK) 54 U/L (29-168); Lipase 68 U/L (8-78)
[2022-07-22 03:06] LABS: Anion Gap 16 mmol/L (10-20); BUN (Urea Nitrogen) 13 mg/dL (9.8-20.1); Calc. Creatinine Clearance 0 mL/min (70-130); Calcium 8.3 mg/dL (7.8-10.44); Carbon Dioxide 20 mmol/L (22-29); Chloride 102 mmol/L (98-107); Estimated GFR 48; Glucose 238 mg/dL (70-105); Potassium 3.8 mmol/L (3.5-5.1); Sodium 134 mmol/L (136-145)
[2022-07-22] MEDS ORDERED: NOREPINEPHRINE 8 MG/250 ML-D5W 250 ML IVPB SCH (03:15)
[2022-07-22 03:34] LABS: Magnesium 1.9 mg/dL (1.6-2.6)
[2022-07-22] MEDS ORDERED: HumaLOG 300 UNITS/3 ML VIAL SC SCH (03:45)
[2022-07-22] MEDS ORDERED: Electrolyte Replacement Protocol 1 EACH FS SCH (03:45)
[2022-07-22] MEDS ORDERED: VANCOMYCIN 1.75 GM/500 ML BAG 1.75 GM in Premix Bag 1 BAG IVPB SCH (04:00)
[2022-07-22] MEDS ORDERED: Dextrose 5% in Water 1,000 ML IV PRN (04:00)
[2022-07-22] MEDS ORDERED: HumaLOG 300 UNITS/3 ML VIAL SC PRN (04:00)
[2022-07-22] MEDS ORDERED: Dextrose 50% Abboject 50 ML SYRINGE IVP PRN (04:00)
[2022-07-22 04:13] LABS: #Lymphocytes 0.7 thou/uL (1.20-3.40); #Monocytes 0.9 thou/uL (0.11-0.59); #Neutrophils 12.6 thou/uL (1.40-6.50); %Basophils 0.1 % (0.0-1.0); %Eosinophils 0.2 % (0.0-10.0); %Lymphocytes 4.7 % (21.0-51.0); %Monocytes 6.3 % (0.0-10.0); %Neutrophils 88.8 % (42.0-75.0); Mean Corpuscular HGB CONC 32.3 g/dL (32.0-36.0); Mean Corpuscular Hemoglobin 32.2 pg (27.0-31.0); Mean Corpuscular Volume 99.7 fl (78.0-98.0); Mean Platelet Volume 9.4 fL (7.4-10.4); Platelet Count 143 10x3/uL (130-400); RBC Distribution Width 12.6 % (11.5-14.5); Red Blood Cell (RBC) Count 3.43 mill/uL (4.20-5.40); White Blood Cell (WBC) Count 14.2 10x3/uL (4.8-10.8)
[2022-07-22 04:30] LABS: ALT (SGPT) 103 U/L (8-55); AST (SGOT) 145 U/L (5-34); Albumin 3.9 g/dL (3.5-5.0); Alkaline Phosphatase 317 U/L (40-110); Anion Gap 14 mmol/L (10-20); BUN (Urea Nitrogen) 16 mg/dL (9.8-20.1); Bilirubin, Total 1.7 mg/dL (0.2-1.2); Calc. Creatinine Clearance 64 mL/min (70-130); Calcium 8.4 mg/dL (7.8-10.44); Carbon Dioxide 23 mmol/L (22-29); Chloride 101 mmol/L (98-107); Cholesterol 139 mg/dl (< 200 Desired); Estimated GFR 46; Globulin 3.1 g/dL (2.4-3.5); Glucose 175 mg/dL (70-105); HDL Cholesterol 28 mg/dL (>60 Neg Risk); LDL Cholesterol, Calculated 102 mg/dL; Potassium 3.4 mmol/L (3.5-5.1); Sodium 135 mmol/L (136-145); Triglycerides 43 mg/dL (Less than 150)
[2022-07-22 04:41] LABS: Troponin I 0.092 ng/mL (< 0.028)
[2022-07-22 05:47] LABS: Lactic Acid 0.9 mmol/L (0.5-2.2)
[2022-07-22] MEDS ORDERED: Magnesium 2 GM/50 ML(in water) 2 GM in Premix Bag 1 BAG IVPB SCH (06:00)
[2022-07-22] MEDS: Furosemide 40 MG/4 ML VIAL SLOW IVP SCH ×2 (06:50→16:20)
[2022-07-22] MEDS: Levothyroxine Sodium 125 MCG TAB PO SCH (06:52)
[2022-07-22] MEDS: Ipratropium/Albuterol 3 ML NEB NEB SCH ×3 (07:41→18:45)
[2022-07-22 07:51] LABS: Actual Bicarbonate (HCO3a) 24.6 mEq/L (22-28); CO2 Tension 35.7 mmHg (35.0-45.0); Calcium, Ionized (arterial) 1.05 mmol/L (1.12-1.30); Carboxyhemoglobin (COHb) 0.8 gm% (0.0-3.0); Hemoglobin (Hb) 12.1 g/dL (12.0-16.0); O2 Tension (PaO2), arterial 120.2 mmHg (80.0-100.0); Potassium - ABG Lab 3.18 mmol/L (3.70-5.30); pH, Arterial 7.46 (7.35-7.45)
[2022-07-22 07:53] LABS: Puncture Site LRA
[2022-07-22 07:54] LABS: ALV-art Gradient 262.975 mmHg (0-20)
[2022-07-22] MEDS ORDERED: Potassium Chloride 20 MEQ TAB PO SCH (08:00)
[2022-07-22] MEDS ORDERED: Potassium Chloride 20 MEQ in Premix Bag 1 BAG IVPB SCH (08:15)
[2022-07-22] MEDS ORDERED: Spironolactone 25 MG TAB PO SCH (09:00)
[2022-07-22] MEDS ORDERED: DOBUTamine 500 mg/250 ml 250 ML IVPB SCH (09:00)
[2022-07-22] MEDS: Cefepime 1 GM in Sodium Chloride 0.9% 100 ML IVPB SCH ×2 (09:33→20:34)
[2022-07-22] MEDS: Famotidine/PF 20 mg/2ml Vial SLOW IVP SCH ×2 (09:49→21:52)
[2022-07-22] MEDS: Aspirin 325 MG TAB PO SCH (09:50)
[2022-07-22] MEDS ORDERED: Potassium Chloride 40 MEQ in Premix Bag 1 BAG IVPB SCH (10:00)
[2022-07-22 19:40] LABS: Potassium 3.1 mmol/L (3.5-5.1)
[2022-07-23] MEDS: Ipratropium/Albuterol 3 ML NEB NEB SCH ×4 (01:19→19:08)
[2022-07-23] MEDS ORDERED: VANCOMYCIN 1.75 GM/500 ML BAG 1.75 GM in Premix Bag 1 BAG IVPB SCH (04:00)
[2022-07-23 04:58] LABS: #Lymphocytes 0.8 thou/uL (1.20-3.40); #Monocytes 0.6 thou/uL (0.11-0.59); #Neutrophils 7.1 thou/uL (1.40-6.50); %Basophils 0.2 % (0.0-1.0); %Eosinophils 0.4 % (0.0-10.0); %Lymphocytes 9.3 % (21.0-51.0); %Monocytes 6.9 % (0.0-10.0); %Neutrophils 83.3 % (42.0-75.0); Hemoglobin 11.2 g/dL (12.0-16.0); Mean Corpuscular HGB CONC 34.1 g/dL (32.0-36.0); Mean Corpuscular Hemoglobin 33.1 pg (27.0-31.0); Mean Corpuscular Volume 96.9 fl (78.0-98.0); Mean Platelet Volume 8.6 fL (7.4-10.4); Platelet Count 124 10x3/uL (130-400); RBC Distribution Width 12.5 % (11.5-14.5); Red Blood Cell (RBC) Count 3.39 mill/uL (4.20-5.40); White Blood Cell (WBC) Count 8.6 10x3/uL (4.8-10.8)
[2022-07-23] MEDS: Levothyroxine Sodium 125 MCG TAB PO SCH (04:59)
[2022-07-23] MEDS: Furosemide 40 MG/4 ML VIAL SLOW IVP SCH ×2 (05:00→13:52)
[2022-07-23 05:17] LABS: CRP (Inflammatory) 7.54 mg/dL (= or < 0.5); Phosphorus 3.7 mg/dL (2.3-4.7)
[2022-07-23 05:25] LABS: ALT (SGPT) 76 U/L (8-55); AST (SGOT) 46 U/L (5-34); Alkaline Phosphatase 259 U/L (40-110); Anion Gap 15 mmol/L (10-20); BUN (Urea Nitrogen) 22 mg/dL (9.8-20.1); Bilirubin, Total 1.1 mg/dL (0.2-1.2); Calc. Creatinine Clearance 64 mL/min (70-130); Calcium 8.7 mg/dL (7.8-10.44); Carbon Dioxide 26 mmol/L (22-29); Chloride 99 mmol/L (98-107); Estimated GFR 46; Globulin 3.3 g/dL (2.4-3.5); Glucose 104 mg/dL (70-105); Potassium 2.9 mmol/L (3.5-5.1); Protein, Total 7.3 g/dL (6.0-8.3); Sodium 137 mmol/L (136-145)
[2022-07-23] MEDS: DOBUTamine 500 mg/250 ml 250 ML IVPB SCH (07:30)
[2022-07-23] MEDS: Potassium Chloride 20 MEQ in Premix Bag 1 BAG IVPB SCH ×4 (07:38→13:52)
[2022-07-23] MEDS ORDERED: Magnesium 2 GM/50 ML(in water) 2 GM in Premix Bag 1 BAG IVPB SCH (08:00)
[2022-07-23] MEDS ORDERED: Spironolactone 25 MG TAB PO SCH (09:00)
[2022-07-23] MEDS: Spironolactone 25 MG TAB PO SCH (09:21)
[2022-07-23] MEDS: Famotidine/PF 20 mg/2ml Vial SLOW IVP SCH (09:21)
[2022-07-23] MEDS: Cefepime 1 GM in Sodium Chloride 0.9% 100 ML IVPB SCH (09:21)
[2022-07-23] MEDS: Aspirin 325 MG TAB PO SCH (09:21)
[2022-07-23] MEDS: cefTRIAXone\\ROCEPHIN 1 GM in Sodium Chloride 0.9% 100 ML IVPB SCH (11:07)
[2022-07-23 14:20] LABS: Potassium 3.9 mmol/L (3.5-5.1)
[2022-07-23] MEDS ORDERED: DC Sedation Protocol FS ONE (15:07)
[2022-07-23] MEDS: Famotidine 20 MG TAB PO SCH (19:55)
[2022-07-23] MEDS ORDERED: diphenhydrAMINE 25 MG CAP PO SCH (21:45)
[2022-07-24] MEDS: Ipratropium/Albuterol 3 ML NEB NEB SCH ×5 (00:13→23:26)
[2022-07-24] MEDS: DOBUTamine 500 mg/250 ml 250 ML IVPB SCH (03:06)
[2022-07-24 04:05] LABS: #Eosinphils 0.1 thou/uL (0.0-0.7); #Lymphocytes 0.9 thou/uL (1.20-3.40); #Monocytes 0.7 thou/uL (0.11-0.59); #Neutrophils 8.3 thou/uL (1.40-6.50); %Basophils 0.1 % (0.0-1.0); %Eosinophils 0.5 % (0.0-10.0); %Lymphocytes 8.8 % (21.0-51.0); %Monocytes 7.3 % (0.0-10.0); %Neutrophils 83.2 % (42.0-75.0); Hemoglobin 11.7 g/dL (12.0-16.0); Mean Corpuscular HGB CONC 35.5 g/dL (32.0-36.0); Mean Corpuscular Hemoglobin 34.1 pg (27.0-31.0); Mean Platelet Volume 9.1 fL (7.4-10.4); Platelet Count 131 10x3/uL (130-400); RBC Distribution Width 12.4 % (11.5-14.5); Red Blood Cell (RBC) Count 3.45 mill/uL (4.20-5.40)
[2022-07-24 04:26] LABS: Anion Gap 15 mmol/L (10-20); BUN (Urea Nitrogen) 20 mg/dL (9.8-20.1); Calc. Creatinine Clearance 76 mL/min (70-130); Calcium 8.9 mg/dL (7.8-10.44); Carbon Dioxide 28 mmol/L (22-29); Chloride 95 mmol/L (98-107); Estimated GFR 57; Glucose 119 mg/dL (70-105); Magnesium 2.2 mg/dL (1.6-2.6); Potassium 3.5 mmol/L (3.5-5.1); Sodium 134 mmol/L (136-145)
[2022-07-24] MEDS: Furosemide 40 MG/4 ML VIAL SLOW IVP SCH ×2 (05:49→14:00)
[2022-07-24] MEDS: Levothyroxine Sodium 125 MCG TAB PO SCH (05:49)
[2022-07-24] MEDS ORDERED: Potassium Chloride 20 MEQ TAB PO SCH (08:00)
[2022-07-24] MEDS: Multivit, Therapeutic 1 TAB PO SCH (08:06)
[2022-07-24] MEDS: Folic Acid 1 MG TAB PO SCH (08:06)
[2022-07-24] MEDS: Spironolactone 25 MG TAB PO SCH (08:06)
[2022-07-24] MEDS: Famotidine 20 MG TAB PO SCH ×2 (08:06→20:43)
[2022-07-24] MEDS: Aspirin 325 MG TAB PO SCH (08:06)
[2022-07-24] MEDS: Cyanocobalamin (Vitamin B-12) 1,000 MCG TAB PO SCH (08:07)
[2022-07-24] MEDS: Thiamine 100 MG TAB PO SCH (08:07)
[2022-07-24] MEDS ORDERED: Sacubitril 24MG/Valsartan 26 MG TAB PO SCH (09:00)
[2022-07-24] MEDS: cefTRIAXone\\ROCEPHIN 1 GM in Sodium Chloride 0.9% 100 ML IVPB SCH (10:38)
[2022-07-24 13:22] VITALS: BMI 29.1
[2022-07-24] MEDS: Acetaminophen 325 MG TAB PO PRN (20:42)
[2022-07-24] MEDS: Sacubitril 24MG/Valsartan 26 MG TAB PO SCH (20:43)
[2022-07-25] MEDS ORDERED: GUAIFENESIN SF SOLN 200 MG/10 ML UDCUP PO PRN (00:53)
[2022-07-25] MEDS: DOBUTamine 500 mg/250 ml 250 ML IVPB SCH (02:40)
[2022-07-25 04:19] LABS: #Basophils 0.1 thou/uL (0.0-0.2); #Eosinphils 0.2 thou/uL (0.0-0.7); #Monocytes 0.7 thou/uL (0.11-0.59); #Neutrophils 8.6 thou/uL (1.40-6.50); %Basophils 0.5 % (0.0-1.0); %Eosinophils 1.6 % (0.0-10.0); %Lymphocytes 9.1 % (21.0-51.0); %Neutrophils 81.9 % (42.0-75.0); Hemoglobin 12.2 g/dL (12.0-16.0); Mean Corpuscular HGB CONC 32.8 g/dL (32.0-36.0); Mean Corpuscular Hemoglobin 32.2 pg (27.0-31.0); Mean Corpuscular Volume 98.2 fl (78.0-98.0); Mean Platelet Volume 8.7 fL (7.4-10.4); Platelet Count 155 10x3/uL (130-400); RBC Distribution Width 12.6 % (11.5-14.5); Red Blood Cell (RBC) Count 3.79 mill/uL (4.20-5.40); White Blood Cell (WBC) Count 10.5 10x3/uL (4.8-10.8)
[2022-07-25 04:36] LABS: ALT (SGPT) 36 U/L (8-55); AST (SGOT) 13 U/L (5-34); Alkaline Phosphatase 212 U/L (40-110); Anion Gap 14 mmol/L (10-20); BUN (Urea Nitrogen) 23 mg/dL (9.8-20.1); Bilirubin, Total 0.7 mg/dL (0.2-1.2); Calc. Creatinine Clearance 92 mL/min (70-130); Calcium 9.2 mg/dL (7.8-10.44); Carbon Dioxide 28 mmol/L (22-29); Chloride 94 mmol/L (98-107); Estimated GFR 70; Globulin 3.7 g/dL (2.4-3.5); Glucose 151 mg/dL (70-105); Potassium 3.2 mmol/L (3.5-5.1); Protein, Total 7.7 g/dL (6.0-8.3); Sodium 133 mmol/L (136-145)
[2022-07-25] MEDS: Levothyroxine Sodium 125 MCG TAB PO SCH (05:52)
[2022-07-25] MEDS ORDERED: DOBUTamine 500 mg/250 ml 250 ML IVPB SCH (07:00)
[2022-07-25] MEDS ORDERED: Potassium Chloride 20 MEQ TAB PO SCH (08:00)
[2022-07-25] MEDS: Ipratropium/Albuterol 3 ML NEB NEB SCH ×2 (08:30→14:40)
[2022-07-25] MEDS: Aspirin 325 MG TAB PO SCH (08:54)
[2022-07-25] MEDS: Sacubitril 24MG/Valsartan 26 MG TAB PO SCH ×2 (08:54→21:07)
[2022-07-25] MEDS: Cyanocobalamin (Vitamin B-12) 1,000 MCG TAB PO SCH (08:55)
[2022-07-25] MEDS: Empagliflozin 10 MG TAB PO SCH (08:55)
[2022-07-25] MEDS: Thiamine 100 MG TAB PO SCH (08:55)
[2022-07-25] MEDS: Famotidine 20 MG TAB PO SCH ×2 (08:55→21:07)
[2022-07-25] MEDS: Multivit, Therapeutic 1 TAB PO SCH (08:55)
[2022-07-25] MEDS: Spironolactone 25 MG TAB PO SCH (08:55)
[2022-07-25] MEDS: Folic Acid 1 MG TAB PO SCH (08:56)
[2022-07-25] MEDS ORDERED: Furosemide 40 MG/4 ML VIAL SLOW IVP SCH (09:00)
[2022-07-25] MEDS: cefTRIAXone\\ROCEPHIN 1 GM in Sodium Chloride 0.9% 100 ML IVPB SCH (12:42)
[2022-07-25] MEDS ORDERED: Nicotine 14 MG PATCH TD PRN ×2 (16:27→17:24)
[2022-07-25] MEDS: Acetaminophen 325 MG TAB PO PRN (16:57)
[2022-07-25] MEDS: Albuterol 200 PUFF (6.7GM INHALER) INH PRN (18:45)
[2022-07-25] MEDS: Albuterol HFA (OR) 200 PUFF INH INH SCH (18:49)
[2022-07-25] MEDS ORDERED: Ipratropium 200 Puff Oral Inhaler INH SCH (19:00)
[2022-07-25] MEDS: Atorvastatin Calcium 40 MG TAB PO SCH (21:07)
[2022-07-25] MEDS: Melatonin 3 MG TAB PO PRN (22:36)
[2022-07-26] MEDS: Albuterol HFA (OR) 200 PUFF INH INH SCH ×4 (00:29→18:52)
[2022-07-26 05:03] LABS: #Basophils 0.1 thou/uL (0.0-0.2); #Eosinphils 0.4 thou/uL (0.0-0.7); #Lymphocytes 1.2 thou/uL (1.20-3.40); #Monocytes 0.8 thou/uL (0.11-0.59); #Neutrophils 8.3 thou/uL (1.40-6.50); %Basophils 0.5 % (0.0-1.0); %Eosinophils 3.9 % (0.0-10.0); %Lymphocytes 11.5 % (21.0-51.0); %Monocytes 7.8 % (0.0-10.0); %Neutrophils 76.3 % (42.0-75.0); Mean Corpuscular HGB CONC 34.1 g/dL (32.0-36.0); Mean Corpuscular Hemoglobin 33.3 pg (27.0-31.0); Mean Corpuscular Volume 97.5 fl (78.0-98.0); Mean Platelet Volume 8.6 fL (7.4-10.4); Platelet Count 189 10x3/uL (130-400); RBC Distribution Width 12.7 % (11.5-14.5); White Blood Cell (WBC) Count 10.8 10x3/uL (4.8-10.8)
[2022-07-26 05:25] LABS: Anion Gap 15 mmol/L (10-20); BUN (Urea Nitrogen) 17 mg/dL (9.8-20.1); Calc. Creatinine Clearance 97 mL/min (70-130); Calcium 9.9 mg/dL (7.8-10.44); Carbon Dioxide 26 mmol/L (22-29); Chloride 98 mmol/L (98-107); Estimated GFR 81; Glucose 138 mg/dL (70-105); Potassium 3.9 mmol/L (3.5-5.1); Sodium 135 mmol/L (136-145)
[2022-07-26] MEDS: Levothyroxine Sodium 125 MCG TAB PO SCH (06:33)
[2022-07-26] MEDS: Aspirin 325 MG TAB PO SCH (10:10)
[2022-07-26] MEDS: Empagliflozin 10 MG TAB PO SCH (10:10)
[2022-07-26] MEDS: Sacubitril 24MG/Valsartan 26 MG TAB PO SCH ×2 (10:11→20:28)
[2022-07-26] MEDS: Multivit, Therapeutic 1 TAB PO SCH (10:12)
[2022-07-26] MEDS: Spironolactone 25 MG TAB PO SCH (10:13)
[2022-07-26] MEDS: Famotidine 20 MG TAB PO SCH ×2 (10:13→20:29)
[2022-07-26] MEDS: Thiamine 100 MG TAB PO SCH (10:13)
[2022-07-26] MEDS: Carvedilol 3.125 MG TAB PO SCH ×2 (10:13→16:23)
[2022-07-26] MEDS: Folic Acid 1 MG TAB PO SCH (10:13)
[2022-07-26] MEDS: Cyanocobalamin (Vitamin B-12) 1,000 MCG TAB PO SCH (10:13)
[2022-07-26] MEDS: cefTRIAXone\\ROCEPHIN 1 GM in Sodium Chloride 0.9% 100 ML IVPB SCH (10:16)
[2022-07-26] MEDS: Albuterol 200 PUFF (6.7GM INHALER) INH PRN (18:51)
[2022-07-26] MEDS: Atorvastatin Calcium 40 MG TAB PO SCH (20:29)
[2022-07-26] MEDS: Melatonin 3 MG TAB PO PRN (20:35)
[2022-07-26] MEDS ORDERED: Nitroglycerin 0.4 MG TAB (25 Tab Bottle) SL PRN (22:56)
[2022-07-27] MEDS: Albuterol HFA (OR) 200 PUFF INH INH SCH ×2 (00:03→07:12)
[2022-07-27 04:42] LABS: Anion Gap 13 mmol/L (10-20); BUN (Urea Nitrogen) 23 mg/dL (9.8-20.1); Calc. Creatinine Clearance 73 mL/min (70-130); Calcium 10.2 mg/dL (7.8-10.44); Carbon Dioxide 31 mmol/L (22-29); Chloride 97 mmol/L (98-107); Estimated GFR 58; Glucose 156 mg/dL (70-105); Sodium 137 mmol/L (136-145)
[2022-07-27] MEDS: Levothyroxine Sodium 125 MCG TAB PO SCH (06:34)
[2022-07-27] MEDS ORDERED: Sacubitril 24MG/Valsartan 26 MG TAB PO SCH (09:00)
[2022-07-27] MEDS: Aspirin 325 MG TAB PO SCH (09:40)
[2022-07-27] MEDS: Cyanocobalamin (Vitamin B-12) 1,000 MCG TAB PO SCH (09:40)
[2022-07-27] MEDS: Famotidine 20 MG TAB PO SCH (09:40)
[2022-07-27] MEDS: Spironolactone 25 MG TAB PO SCH (09:40)
[2022-07-27] MEDS: Carvedilol 3.125 MG TAB PO SCH (09:40)
[2022-07-27] MEDS: Folic Acid 1 MG TAB PO SCH (09:40)
[2022-07-27] MEDS: Empagliflozin 10 MG TAB PO SCH (09:41)
[2022-07-27] MEDS: Multivit, Therapeutic 1 TAB PO SCH (09:48)
[2022-07-27] MEDS: Thiamine 100 MG TAB PO SCH (09:48)
[2022-07-27 11:14] VITALS: BP 113/70; TEMP 97.8
== END 2022-07-27 11:14 | disposition home or self-care (01) | DRG 871 ==
LOC: ERS 23:01 → CCU 07-22 01:02 → 2NO 07-24 15:20
PROVIDERS: ADMIT Internal Medicine; ATTEND Internal Medicine
PROC: 3E03329 Introduction of Other Anti-infective into Peripheral Vein, Percutaneous Approach (ICD-10-PCS; principal; 2022-07-22)
PROC: 5A1945Z Respiratory Ventilation, 24-96 Consecutive Hours (ICD-10-PCS; 2022-07-22)
PROC: 3E033XZ Introduction of Vasopressor into Peripheral Vein, Percutaneous Approach (ICD-10-PCS; 2022-07-22)
PROC: 0D9670Z Drainage of Stomach with Drainage Device, Via Natural or Artificial Opening (ICD-10-PCS; 2022-07-22)
PROC: 06HY33Z Insertion of Infusion Device into Lower Vein, Percutaneous Approach (ICD-10-PCS; 2022-07-22)
DX: A41.9 Sepsis, unspecified organism (principal); I21.4 Non-ST elevation (NSTEMI) myocardial infarction; R65.21 Severe sepsis with septic shock; J96.01 Acute respiratory failure with hypoxia; J69.0 Pneumonitis due to inhalation of food and vomit; J18.9 Pneumonia, unspecified organism; I50.23 Acute on chronic systolic (congestive) heart failure; R57.0 Cardiogenic shock; E87.21 Acute metabolic acidosis; E87.1 Hypo-osmolality and hyponatremia; N17.9 Acute kidney failure, unspecified; E87.20 Acidosis, unspecified; Z20.822 Contact with and (suspected) exposure to COVID-19; I25.10 Atherosclerotic heart disease of native coronary artery without angina pectoris; E03.9 Hypothyroidism, unspecified; I11.0 Hypertensive heart disease with heart failure; R74.01 Elevation of levels of liver transaminase levels; E11.9 Type 2 diabetes mellitus without complications; I25.5 Ischemic cardiomyopathy; I08.1 Rheumatic disorders of both mitral and tricuspid valves; F17.210 Nicotine dependence, cigarettes, uncomplicated; E87.6 Hypokalemia; R94.5 Abnormal results of liver function studies; D50.9 Iron deficiency anemia, unspecified; Z86.19 Personal history of other infectious and parasitic diseases; Z78.1 Physical restraint status; Z88.6 Allergy status to analgesic agent; Z88.5 Allergy status to narcotic agent; Z88.8 Allergy status to other drugs, medicaments and biological substances; Z79.82 Long term (current) use of aspirin; Z79.02 Long term (current) use of antithrombotics/antiplatelets; Z90.49 Acquired absence of other specified parts of digestive tract; Z79.899 Other long term (current) drug therapy; Z79.890 Hormone replacement therapy
CPT/HCPCS: 31500; 36415; 36416; 36556; 36600; 71045; 71046; 74018; 80048; 80053; 80061; 81003; 81015; 82533; 82550; 82553; 82805; 83605; 83690; 83735; 83880; 84100; 84145; 84439; 84443; 84484; 85025; 85610; 85730; 86140; 87040; 87086; 93005; 93010; 93306; 93798; 94002; 94003; 94150; 94640; 94664; 96365; 96366; 96368; 96374; 99292; J0456; J0692; J0696; J1250; J1644; J1650; J1815; J1940; J3010; J3370; J3475; J3480; J3490; J7620; S0028

== ENCOUNTER 2023-02-11 13:51 | Emergency (ER) | payer OTHER | END 2023-02-11 16:32 | disposition home or self-care (01) | LOC: ERS 13:51 | DX: Z76.0 Encounter for issue of repeat prescription (principal); I11.0 Hypertensive heart disease with heart failure; I50.9 Heart failure, unspecified; E03.9 Hypothyroidism, unspecified; J44.9 Chronic obstructive pulmonary disease, unspecified; F17.210 Nicotine dependence, cigarettes, uncomplicated | CPT/HCPCS: 93005 ==

== ENCOUNTER 2024-01-24 12:02 | Inpatient (IN) | payer OTHER ==
[2024-01-24] MEDS ORDERED: Aspirin Chewable 81 MG TAB ONE (12:26)
[2024-01-24 12:33] LABS: #Basophils 0.03 10x3/uL (0.0-0.2); %Basophils 0.4 % (0.0-1.0); %Eosinophils 0.9 % (0.0-10.0); %Lymphocytes 14.9 % (21.0-51.0); %Monocytes 5.8 % (0.0-10.0); %Neutrophils 77.7 % (42.0-75.0); Hemoglobin 10.5 g/dL (12.0-16.0); Mean Corpuscular HGB CONC 32.8 g/dL (32.0-36.0); Mean Corpuscular Volume 100.6 fL (78.0-98.0); Mean Platelet Volume 11.6 fL (7.4-10.4); Platelet Count 165 10x3/uL (130-400); RBC Distribution Width 13.6 % (11.5-14.5); Red Blood Cell (RBC) Count 3.18 mill/uL (4.20-5.40)
[2024-01-24 12:48] LABS: INR-International Normal Ratio 1.1; PTT 33.1 sec (22.9-36.1); Prothrombin Time 14.3 sec (12.0-14.7)
[2024-01-24 12:57] LABS: ALT (SGPT) 10 U/L (8-55); AST (SGOT) 13 U/L (5-34); Albumin 4.3 g/dL (3.5-5.0); Alkaline Phosphatase 128 U/L (40-110); Anion Gap 15 mmol/L (10-20); BUN (Urea Nitrogen) 16 mg/dL (9.8-20.1); Calc. Creatinine Clearance 0 mL/min (70-130); Calcium 9.7 mg/dL (7.8-10.44); Carbon Dioxide 31 mmol/L (22-29); Chloride 95 mmol/L (98-107); Estimated GFR 67; Globulin 4.1 g/dL (2.4-3.5); Glucose 157 mg/dL (70-105); Lipase 15 U/L (8-78); Potassium 2.9 mmol/L (3.5-5.1); Protein, Total 8.4 g/dL (6.0-8.3); Sodium 138 mmol/L (136-145)
[2024-01-24] MEDS ORDERED: Furosemide 40 MG (4 mL) VIAL ONE (13:39)
[2024-01-24] MEDS ORDERED: Senokot S 8.6-50 MG TAB PO PRN (14:08)
[2024-01-24] MEDS ORDERED: Calcium Carbonate 500 MG ChewTAB PO PRN (14:08)
[2024-01-24] MEDS ORDERED: Acetaminophen 325 MG TAB PO PRN (14:08)
[2024-01-24] MEDS ORDERED: Potassium Chloride 20 MEQ TAB ONE (14:14)
[2024-01-24] MEDS: Potassium Chloride 20 MEQ TAB PO SCH (17:23)
[2024-01-24] MEDS: Nicotine 14 MG PATCH TD SCH (17:23)
[2024-01-24 17:33] VITALS: BMI 28.3
[2024-01-24] MEDS: Furosemide 40 MG (4 mL) VIAL SLOW IVP SCH (18:19)
[2024-01-24] MEDS: Carvedilol 3.125 MG TAB PO SCH (20:21)
[2024-01-24] MEDS: Atorvastatin Calcium 20 MG TAB PO SCH (20:21)
[2024-01-24] MEDS ORDERED: Sacubitril 24MG/Valsartan 26 MG TAB PO SCH (21:00)
[2024-01-25 04:49] LABS: #Basophils 0.03 10x3/uL (0.0-0.2); %Basophils 0.4 % (0.0-1.0); %Eosinophils 0.9 % (0.0-10.0); %Lymphocytes 16.9 % (21.0-51.0); %Monocytes 6.3 % (0.0-10.0); %Neutrophils 75.1 % (42.0-75.0); Hematocrit 30.8 % (36.0-47.0); Mean Corpuscular HGB CONC 32.5 g/dL (32.0-36.0); Mean Corpuscular Hemoglobin 32.7 pg (27.0-31.0); Mean Corpuscular Volume 100.7 fL (78.0-98.0); Mean Platelet Volume 11.5 fL (7.4-10.4); Platelet Count 149 10x3/uL (130-400); RBC Distribution Width 13.5 % (11.5-14.5); Red Blood Cell (RBC) Count 3.06 mill/uL (4.20-5.40)
[2024-01-25 05:09] LABS: ALT (SGPT) 14 U/L (8-55); AST (SGOT) 15 U/L (5-34); Albumin 3.9 g/dL (3.5-5.0); Alkaline Phosphatase 141 U/L (40-110); Anion Gap 13 mmol/L (10-20); BUN (Urea Nitrogen) 16 mg/dL (9.8-20.1); Bilirubin, Total 1.3 mg/dL (0.2-1.2); Calc. Creatinine Clearance 91 mL/min (70-130); Calcium 9.5 mg/dL (7.8-10.44); Carbon Dioxide 31 mmol/L (22-29); Chloride 97 mmol/L (98-107); Estimated GFR 75; Globulin 3.7 g/dL (2.4-3.5); Glucose 136 mg/dL (70-105); Magnesium 2.2 mg/dL (1.6-2.6); Potassium 2.9 mmol/L (3.5-5.1); Protein, Total 7.6 g/dL (6.0-8.3); Sodium 138 mmol/L (136-145)
[2024-01-25] MEDS: Furosemide 40 MG (4 mL) VIAL SLOW IVP SCH ×2 (05:40→18:06)
[2024-01-25] MEDS: Levothyroxine Sodium 125 MCG TAB PO SCH (05:40)
[2024-01-25] MEDS: Aspirin 81 mg Enteric Coated Tablet PO SCH (09:17)
[2024-01-25] MEDS: Empagliflozin 10 MG TAB PO SCH (09:18)
[2024-01-25] MEDS: Cholecalciferol (Vitamin D3) 400 UNITS TAB PO SCH (09:18)
[2024-01-25] MEDS: Enoxaparin 40 MG (0.4 mL) SYRINGE SC SCH (09:18)
[2024-01-25] MEDS: PARoxetine 20 MG TAB PO SCH (09:19)
[2024-01-25] MEDS: Spironolactone 25 MG TAB PO SCH (09:19)
[2024-01-25] MEDS: Ondansetron PF 4 MG/2 ML Vial IVP PRN (13:08)
[2024-01-25] MEDS: Potassium Chloride 20 MEQ TAB PO SCH (13:08)
[2024-01-26 04:49] LABS: #Basophils 0.03 10x3/uL (0.0-0.2); %Basophils 0.4 % (0.0-1.0); %Eosinophils 0.4 % (0.0-10.0); %Lymphocytes 12.1 % (21.0-51.0); %Monocytes 5.3 % (0.0-10.0); %Neutrophils 81.6 % (42.0-75.0); Hematocrit 32.4 % (36.0-47.0); Hemoglobin 10.8 g/dL (12.0-16.0); Mean Corpuscular HGB CONC 33.3 g/dL (32.0-36.0); Mean Corpuscular Hemoglobin 32.3 pg (27.0-31.0); Mean Platelet Volume 11.3 fL (7.4-10.4); Platelet Count 174 10x3/uL (130-400); RBC Distribution Width 13.4 % (11.5-14.5); Red Blood Cell (RBC) Count 3.34 mill/uL (4.20-5.40)
[2024-01-26 05:49] LABS: Anion Gap 17 mmol/L (10-20); BUN (Urea Nitrogen) 21 mg/dL (9.8-20.1); Calc. Creatinine Clearance 68 mL/min (70-130); Calcium 9.9 mg/dL (7.8-10.44); Carbon Dioxide 29 mmol/L (22-29); Chloride 98 mmol/L (98-107); Estimated GFR 54; Glucose 137 mg/dL (70-105); Potassium 3.6 mmol/L (3.5-5.1); Sodium 140 mmol/L (136-145)
[2024-01-26] MEDS: Furosemide 100 MG (10 mL) VIAL SLOW IVP SCH ×2 (06:39→20:31)
[2024-01-26] MEDS: FLU (Fluarix Triv) TS24-25(6MOS UP)/PF 45 MCG/0.5 ML Syringe IM ONE ×2 (16:26→16:27)
[2024-01-26] MEDS: Ipratropium/Albuterol 3 ML NEB NEB PRN (19:19)
[2024-01-26] MEDS ORDERED: Furosemide 20 MG (2 mL) VIAL SLOW IVP SCH (20:00)
[2024-01-26] MEDS: Sacubitril 24MG/Valsartan 26 MG TAB PO SCH (20:32)
[2024-01-26 21:45] LABS: Actual Bicarbonate (HCO3v) 28.4 mEq/L (22-28); Base Excess 2.3 mEq/L (-2.0 to +3.0); Chloride (VBG) 95 mmol/L (98-106); Hematocrit-VBG 36 % (36.0-47.0); Hemoglobin (Hb) 12.4 g/dL (11.7-16.0); Potassium (VBG) 3.43 mmol/L (3.70-5.30)
[2024-01-26 21:55] LABS: #Basophils 0.04 10x3/uL (0.0-0.2); #Eosinophils Less than 0.03 10x3/uL (0.0-0.7); %Basophils 0.4 % (0.0-1.0); %Eosinophils 0.2 % (0.0-10.0); %Lymphocytes 6.2 % (21.0-51.0); %Monocytes 5.4 % (0.0-10.0); Hematocrit 33.1 % (36.0-47.0); Hemoglobin 11.3 g/dL (12.0-16.0); Mean Corpuscular HGB CONC 34.1 g/dL (32.0-36.0); Mean Corpuscular Hemoglobin 32.8 pg (27.0-31.0); Mean Corpuscular Volume 96.2 fL (78.0-98.0); Platelet Count 181 10x3/uL (130-400); RBC Distribution Width 13.6 % (11.5-14.5); Red Blood Cell (RBC) Count 3.44 mill/uL (4.20-5.40)
[2024-01-26 22:15] LABS: ALT (SGPT) 40 U/L (8-55); AST (SGOT) 60 U/L (5-34); Albumin 4.2 g/dL (3.5-5.0); Alkaline Phosphatase 207 U/L (40-110); Anion Gap 16 mmol/L (10-20); BUN (Urea Nitrogen) 29 mg/dL (9.8-20.1); Bilirubin, Total 2.6 mg/dL (0.2-1.2); Calc. Creatinine Clearance 54 mL/min (70-130); Calcium 9.8 mg/dL (7.8-10.44); Carbon Dioxide 30 mmol/L (22-29); Chloride 95 mmol/L (98-107); Estimated GFR 41; Globulin 3.9 g/dL (2.4-3.5); Glucose 177 mg/dL (70-105); Potassium 3.4 mmol/L (3.5-5.1); Protein, Total 8.1 g/dL (6.0-8.3); Sodium 138 mmol/L (136-145)
[2024-01-26 23:26] LABS: Troponin I 0.029 ng/mL (< 0.028)
[2024-01-27 04:41] LABS: #Basophils 0.04 10x3/uL (0.0-0.2); #Eosinophils Less than 0.03 10x3/uL (0.0-0.7); %Basophils 0.5 % (0.0-1.0); %Eosinophils 0.1 % (0.0-10.0); %Lymphocytes 12.4 % (21.0-51.0); %Monocytes 5.7 % (0.0-10.0); %Neutrophils 80.7 % (42.0-75.0); Hematocrit 31.8 % (36.0-47.0); Hemoglobin 10.3 g/dL (12.0-16.0); Mean Corpuscular HGB CONC 32.4 g/dL (32.0-36.0); Mean Corpuscular Hemoglobin 32.6 pg (27.0-31.0); Mean Corpuscular Volume 100.6 fL (78.0-98.0); Mean Platelet Volume 11.1 fL (7.4-10.4); Platelet Count 163 10x3/uL (130-400); RBC Distribution Width 13.4 % (11.5-14.5); Red Blood Cell (RBC) Count 3.16 mill/uL (4.20-5.40)
[2024-01-27 04:52] LABS: Anion Gap 16 mmol/L (10-20); BUN (Urea Nitrogen) 26 mg/dL (9.8-20.1); Calc. Creatinine Clearance 73 mL/min (70-130); Calcium 9.7 mg/dL (7.8-10.44); Carbon Dioxide 31 mmol/L (22-29); Chloride 96 mmol/L (98-107); Estimated GFR 60; Glucose 103 mg/dL (70-105); Potassium 3.4 mmol/L (3.5-5.1); Sodium 140 mmol/L (136-145)
[2024-01-27] MEDS: Potassium Chloride 20 MEQ TAB PO SCH (05:24)
[2024-01-27] MEDS: Furosemide 40 MG TAB PO SCH (09:45)
[2024-01-27] MEDS: Furosemide 20 MG (2 mL) VIAL SLOW IVP SCH (16:01)
[2024-01-28 07:03] LABS: #Basophils Less than 0.03 10x3/uL (0.0-0.2); %Basophils 0.4 % (0.0-1.0); %Eosinophils 1.4 % (0.0-10.0); %Lymphocytes 19.8 % (21.0-51.0); Hematocrit 30.9 % (36.0-47.0); Hemoglobin 10.3 g/dL (12.0-16.0); Mean Corpuscular HGB CONC 33.3 g/dL (32.0-36.0); Mean Corpuscular Hemoglobin 32.7 pg (27.0-31.0); Mean Corpuscular Volume 98.1 fL (78.0-98.0); Mean Platelet Volume 10.8 fL (7.4-10.4); Platelet Count 166 10x3/uL (130-400); RBC Distribution Width 13.5 % (11.5-14.5); Red Blood Cell (RBC) Count 3.15 mill/uL (4.20-5.40)
[2024-01-28 07:27] LABS: Anion Gap 11 mmol/L (10-20); BUN (Urea Nitrogen) 24 mg/dL (9.8-20.1); Calc. Creatinine Clearance 85 mL/min (70-130); Calcium 9.3 mg/dL (7.8-10.44); Carbon Dioxide 32 mmol/L (22-29); Chloride 99 mmol/L (98-107); Estimated GFR 73; Glucose 113 mg/dL (70-105); Potassium 3.1 mmol/L (3.5-5.1); Sodium 139 mmol/L (136-145)
[2024-01-28] MEDS: Potassium Chloride 20 MEQ TAB PO SCH (11:06)
[2024-01-28 11:21] VITALS: BP 124/59; TEMP 98.6
== END 2024-01-28 12:19 | disposition home or self-care (01) | DRG 291 ==
LOC: ERS 12:02 → SUATTDRO 12:02 → 2NO 13:59
PROVIDERS: ADMIT Internal Medicine; ATTEND Internal Medicine
DX: I11.0 Hypertensive heart disease with heart failure (principal); I50.43 Acute on chronic combined systolic (congestive) and diastolic (congestive) heart failure; J96.01 Acute respiratory failure with hypoxia; I24.89 Other forms of acute ischemic heart disease; E87.6 Hypokalemia; I25.10 Atherosclerotic heart disease of native coronary artery without angina pectoris; E03.9 Hypothyroidism, unspecified; F39 Unspecified mood [affective] disorder; E78.5 Hyperlipidemia, unspecified; D64.9 Anemia, unspecified; F31.9 Bipolar disorder, unspecified; F41.9 Anxiety disorder, unspecified; F17.210 Nicotine dependence, cigarettes, uncomplicated; J44.9 Chronic obstructive pulmonary disease, unspecified; Z79.82 Long term (current) use of aspirin; I25.5 Ischemic cardiomyopathy; I08.1 Rheumatic disorders of both mitral and tricuspid valves; Z95.1 Presence of aortocoronary bypass graft; Z79.890 Hormone replacement therapy; Z79.899 Other long term (current) drug therapy; Z90.49 Acquired absence of other specified parts of digestive tract; Z90.710 Acquired absence of both cervix and uterus; Z95.810 Presence of automatic (implantable) cardiac defibrillator; Z71.6 Tobacco abuse counseling; Z88.5 Allergy status to narcotic agent
CPT/HCPCS: 36415; 36416; 71045; 80048; 80053; 82805; 83690; 83735; 83880; 84484; 85025; 85610; 85730; 90656; 93005; 93010; 93798; 94640; 96374; J1650; J1940; J2405; J7620